=== PATIENT | female | born 1940 | race Caucasian/White ===

== ENCOUNTER → 2016-05-21 | Outpatient (REF) | payer MEDICARE, OTHER | LOC: M LAB REF 16:16 | PROVIDERS: ATTEND Obstetrics & Gynecology | DX: N30.80 Other cystitis without hematuria (principal) ==

== ENCOUNTER → 2016-05-28 | Outpatient (REF) | LOC: M LAB 12:33 | PROVIDERS: ATTEND Nurse Practitioner Adult Health | DX: Z02.1 Encounter for pre-employment examination (principal) ==

== ENCOUNTER → 2016-06-22 | Outpatient (REF) | payer MEDICARE, OTHER | LOC: M SFHCLERA 11:50 | PROVIDERS: ATTEND Physician Assistant | DX: N39.0 Urinary tract infection, site not specified (principal) | CPT/HCPCS: 81002; 87088; 87186; G0463 ==

== ENCOUNTER → 2016-07-12 | Outpatient (REF) | payer MEDICARE, OTHER | LOC: M LAB REF 16:26 | PROVIDERS: ATTEND Obstetrics & Gynecology | DX: N39.41 Urge incontinence (principal) ==

== ENCOUNTER → 2016-08-03 | Outpatient (REF) | payer MEDICARE, OTHER ==
[~2016-08-03] MED LIST: ACET30TAB PO; ADV250INH; ADV250INH INH; ALIG4CAP PO; AMOX500T2 PO; ASPI1TAB PO; AUGM500T34 PO; AUGM875T27 PO; BACT800T5 PO; CALC600T10 PO; CEPH250T PO; CO Q1CAP PO; CRAN425C2 PO; ESTR62CR; ESTR62CR PV; FISH1000 PO; FOLI400T PO; GABA600T; GABA600T PO; HYDR25TA6; HYDR25TAB PO; IBUP60TA PO; ICAPCAP PO; LEVO88TA24 PO; LYSI500C PO; MAGN1TAB25 PO; METO-346; METO-346 PO; OMEP20CA3; OMEP20TA PO; PARO20TA3; PARO20TA3 PO; PROBCAP14 PO; RISATAB3 PO; SIMV20TA2; SIMV20TA2 PO; SYNT88TA2; TURM500C3 PO; TYLETAB14 PO; VITA10006 PO; VITA100066 PO; VITA400C2 PO; VITATAB11 PO; ZINC50TA PO; [UNRECOGNIZED DRUG - CODE] PO
== END ==
LOC: M SFHCLERA 11:24
PROVIDERS: ATTEND Nurse Practitioner Family
DX: N30.01 Acute cystitis with hematuria (principal)
CPT/HCPCS: 81002; 87088; 87186; G0463

== ENCOUNTER → 2016-08-23 | Outpatient (CLI) | payer MEDICARE, OTHER ==
--- NOTE | 2016-08-23 12:32 | REPMRS ---
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 Family history of colorectal cancer in mother at age 50 or over and breast cancer in maternal aunt at age 50 or over. Taking estrogen for 1 month. Digital Woman Screen Mammo: August 23, 2016 - Exam #: [id number] Bilateral CC and MLO view(s) were taken. Technologist: Agnes Kerns, Technologist Prior study comparison: August 14, 2015, digital woman screen mammo performed at [facility]. August 12, 2014, digital woman screen mammo performed at [facility]. FINDINGS: There are scattered fibroglandular densities. There has been no change in the appearance of the mammogram from the prior studies. There is a mild amount of residual fibroglandular tissue which is fairly symmetric. There is no interval development of dominant mass, architectural distortion, or clustered microcalcification suggestive of malignancy. ASSESSMENT: BI-RADS/ACR category 1 mammogram. Negative. Recommendation Routine screening mammogram in 1 year (for women over age 40). This mammogram was interpreted with the aid of an FDA-approved computer-aided dectection system. Electronically Signed By: Juan Luis Lima MD 08/23/16 [id number]
== END ==
LOC: M WHC 11:26
PROVIDERS: ATTEND Family Medicine
DX: Z12.31 Encounter for screening mammogram for malignant neoplasm of breast (principal); Z85.72 Personal history of non-Hodgkin lymphomas; Z80.3 Family history of malignant neoplasm of breast; Z79.899 Other long term (current) drug therapy

== ENCOUNTER 2016-08-27 14:37 | Emergency (ER) | payer MEDICARE, OTHER ==
[~2016-08-27] VITALS: Ht 157.5 cm; Wt 88.8 kg
[2016-08-27] MEDS ORDERED: ADV250INH (14:54)
[2016-08-27] MEDS ORDERED: SIMV20TA2 (14:54)
[2016-08-27] MEDS ORDERED: SYNT88TA2 (14:54)
[2016-08-27] MEDS ORDERED: METO-346 (14:54)
[2016-08-27] MEDS ORDERED: BACT800T5 PO (14:54)
[2016-08-27] MEDS ORDERED: ESTR62CR (14:54)
[2016-08-27] MEDS ORDERED: OMEP20CA3 (14:54)
[2016-08-27] MEDS ORDERED: HYDR25TA6 (14:54)
[2016-08-27] MEDS ORDERED: GABA600T (14:54)
[2016-08-27] MEDS ORDERED: PARO20TA3 (14:54)
[2016-08-27] MEDS ORDERED: PIPERACILLIN/TAZOBACTAM SOD 3.375 GM in D5W MINI-BAG PLUS 50 ML IV ONE (15:00)
[2016-08-27] MEDS ORDERED: ACETAMINOPH W/CODEINE #3 TAB UD PO ONE (15:15)
[2016-08-27 15:35] LABS: BASO % 0.5 % (0.0-1.0); EOS # 0.1 K/mm3 (0.0-0.50); EOS % 1.4 % (0.0-3.0); LARGE UNSTAINED CELL # 0.1 K/mm3 (0.0-0.4); LARGE UNSTAINED CELL % 0.8 % (0.0-4.0); LYMPH # 1.1 K/mm3 (1.5-4.5); LYMPH % 12.3 % (24.0-44.0); MEAN CORPUSCULAR HEMOGLOBIN 30.4 pg (27.0-33.0); MEAN CORPUSCULAR HGB CONC 33.2 g/dl (32.0-36.5); MEAN CORPUSCULAR VOLUME 91.7 fl (80.0-96.0); MONO # 0.5 K/mm3 (0.0-0.8); MONO % 5.9 % (0.0-5.0); NEUTROPHILS # 6.8 K/mm3 (1.8-7.7); PLATELET COUNT, AUTOMATED 208 k/mm3 (150-450); WHITE BLOOD COUNT 8.6 K/mm3 (4.0-10.0)
[2016-08-27 16:02] LABS: ALBUMIN 3.2 GM/DL (3.2-5.2); ALBUMIN/GLOBULIN RATIO 1.1 (1.00-1.93); BILIRUBIN,DIRECT 0.2 MG/DL (0.0-0.2); BILIRUBIN,TOTAL 0.5 MG/DL (0.2-1.0); CALCIUM LEVEL 8.7 MG/DL (8.8-10.2); CREATININE FOR GFR 1.9 MG/DL (0.55-1.02); GLOMERULAR FILTRATION RATE 27.5 (>39); POTASSIUM SERUM 3.8 MEQ/L (3.5-5.1); TOTAL PROTEIN 6.1 GM/DL (6.4-8.2)
[2016-08-27 16:07] LABS: ERYTHROCYTE SEDIMENTATION RATE 54 mm/hr (0-30)
[2016-08-27] MEDS ORDERED: AUGM500T34 PO ×2 (16:40→16:44)
[2016-08-27] MEDS ORDERED: ACET30TAB PO (16:41)
[2016-08-27 16:54] VITALS: BP 144/71
[2016-08-28] MEDS ORDERED: TYLETAB14 PO (13:52)
[2016-08-28] MEDS ORDERED: HYDR25TAB PO (13:52)
[2016-08-28] MEDS ORDERED: PARO20TA3 PO (13:52)
[2016-08-28] MEDS ORDERED: ESTR62CR PV (13:52)
[2016-08-28] MEDS ORDERED: AMOX500T2 PO (13:52)
[2016-08-28] MEDS ORDERED: OMEP20TA PO (13:52)
[2016-08-28] MEDS ORDERED: LEVO88TA24 PO (13:52)
[2016-08-28] MEDS ORDERED: GABA600T PO (13:52)
[2016-08-28] MEDS ORDERED: METO-346 PO (13:52)
[2016-08-28] MEDS ORDERED: VITA10006 PO (14:01)
[2016-08-28] MEDS ORDERED: PROBCAP14 PO (14:01)
[2016-08-28] MEDS ORDERED: [UNRECOGNIZED DRUG - CODE] PO (14:01)
[2016-08-28] MEDS ORDERED: FISH1000 PO (14:01)
[2016-08-28] MEDS ORDERED: ASPI1TAB PO (14:01)
[2016-08-28] MEDS ORDERED: FOLI400T PO (14:01)
[2016-08-28] MEDS ORDERED: LYSI500C PO (14:01)
[2016-08-28] MEDS ORDERED: VITA100066 PO (14:01)
[2016-08-28] MEDS ORDERED: MAGN1TAB25 PO (14:01)
[2016-08-28] MEDS ORDERED: TURM500C3 PO (14:01)
[2016-08-28] MEDS ORDERED: CO Q100C PO (14:01)
[2016-08-28] MEDS ORDERED: CALC600T31 PO (14:01)
[2016-08-28] MEDS ORDERED: ADV250INH INH (14:01)
[2016-08-28] MEDS ORDERED: CEPH250T PO (14:01)
[2016-08-28] MEDS ORDERED: CRAN425C2 PO (14:01)
[2016-08-28] MEDS ORDERED: ICAPCAP PO (14:01)
[2016-08-28] MEDS ORDERED: VITATAB11 PO (14:01)
[2016-08-28] MEDS ORDERED: IBUP1TAB6 PO (14:01)
[2016-08-28] MEDS ORDERED: ZINC50TA PO (14:01)
[2016-08-28] MEDS ORDERED: SIMV20TA2 PO (14:01)
[2016-08-28] MEDS ORDERED: VITA400C7 PO (14:01)
[2016-09-01] MEDS ORDERED: AUGM875T28 PO (13:02)
== END 2016-08-27 16:56 | disposition home or self-care (01) ==
LOC: M ED 15:53
DX: L03.113 Cellulitis of right upper limb (principal); S61.451A Open bite of right hand, initial encounter; W55.01XA Bitten by cat, initial encounter; Y92.89 Other specified places as the place of occurrence of the external cause; Y93.9 Activity, unspecified; Y99.8 Other external cause status; G89.29 Other chronic pain; J44.9 Chronic obstructive pulmonary disease, unspecified; Z90.79 Acquired absence of other genital organ(s); Z91.040 Latex allergy status

== ENCOUNTER 2016-08-28 10:43 | Inpatient (IN) | payer MEDICARE, OTHER ==
[~2016-08-28] VITALS: Ht 157.5 cm; Wt 91.3 kg
[~2016-08-28 10:43] MED LIST changes: -ADV250INH INH; -ALIG4CAP PO; -AMOX500T2 PO; -ASPI1TAB PO; -AUGM875T27 PO; -CALC600T10 PO; -CEPH250T PO; -CO Q1CAP PO; -CRAN425C2 PO; -ESTR62CR PV; -FISH1000 PO; -FOLI400T PO; -GABA600T PO; -HYDR25TAB PO; -IBUP60TA PO; -ICAPCAP PO; -LEVO88TA24 PO; -LYSI500C PO; -MAGN1TAB25 PO; -METO-346 PO; -OMEP20TA PO; -PARO20TA3 PO; -PROBCAP14 PO; -RISATAB3 PO; -SIMV20TA2 PO; -TURM500C3 PO; -TYLETAB14 PO; -VITA10006 PO; -VITA100066 PO; -VITA400C2 PO; -VITATAB11 PO; -ZINC50TA PO; -[UNRECOGNIZED DRUG - CODE] PO
[2016-08-28] MEDS ORDERED: PIPERACILLIN/TAZOBACTAM SOD 3.375 GM in D5W MINI-BAG PLUS 50 ML IV ONE (11:15)
[2016-08-28] MEDS ORDERED: ONDANSETRON 4MG/2ML VIAL (J2405) IV ONE (11:45)
[2016-08-28] MEDS ORDERED: MORPHINE 4 MG/ML 1ML SYRINGE IV ONE (11:45)
[2016-08-28 12:07] LABS: ALBUMIN 3.1 GM/DL (3.2-5.2); ALBUMIN/GLOBULIN RATIO 1.03 (1.00-1.93); BILIRUBIN,TOTAL 0.4 MG/DL (0.2-1.0); CALCIUM LEVEL 8.7 MG/DL (8.8-10.2); CREATININE FOR GFR 2.02 MG/DL (0.55-1.02); GLOMERULAR FILTRATION RATE 25.6 (>39); POTASSIUM SERUM 3.6 MEQ/L (3.5-5.1); TOTAL PROTEIN 6.1 GM/DL (6.4-8.2)
[2016-08-28 12:34] LABS: MEAN CORPUSCULAR HEMOGLOBIN 29.9 pg (27.0-33.0); MEAN CORPUSCULAR HGB CONC 32.5 g/dl (32.0-36.5); MEAN CORPUSCULAR VOLUME 91.9 fl (80.0-96.0); NEUTROPHILS % 76.7 % (36.0-66.0); PLATELET COUNT, AUTOMATED 208 k/mm3 (150-450); WHITE BLOOD COUNT 8.2 K/mm3 (4.0-10.0)
[2016-08-28 12:35] LABS: BASO # 0.1 K/mm3 (0.0-0.2); BASO % 0.7 % (0.0-1.0); DIFF SLIDE NUMBER 123; EOS # 0.1 K/mm3 (0.0-0.50); EOS % 1.8 % (0.0-3.0); LARGE UNSTAINED CELL # 0.1 K/mm3 (0.0-0.4); LARGE UNSTAINED CELL % 1.3 % (0.0-4.0); LYMPH # 1.1 K/mm3 (1.5-4.5); LYMPH % 13.9 % (24.0-44.0); MONO # 0.5 K/mm3 (0.0-0.8); MONO % 5.7 % (0.0-5.0); NEUTROPHILS # 6.3 K/mm3 (1.8-7.7)
[2016-08-28 13:03] LABS: ERYTHROCYTE SEDIMENTATION RATE 58 mm/hr (0-30)
[2016-08-28] MEDS ORDERED: HYDR25TAB PO (13:52)
[2016-08-28] MEDS ORDERED: OMEP20TA PO (13:52)
[2016-08-28] MEDS ORDERED: METO-346 PO (13:52)
[2016-08-28] MEDS ORDERED: LEVO88TA24 PO (13:52)
[2016-08-28] MEDS ORDERED: PARO20TA3 PO (13:52)
[2016-08-28] MEDS ORDERED: AMOX500T2 PO (13:52)
[2016-08-28] MEDS ORDERED: ESTR62CR PV (13:52)
[2016-08-28] MEDS ORDERED: TYLETAB14 PO (13:52)
[2016-08-28] MEDS ORDERED: GABA600T PO (13:52)
[2016-08-28] MEDS ORDERED: VITA100066 PO (14:01)
[2016-08-28] MEDS ORDERED: PROBCAP14 PO (14:01)
[2016-08-28] MEDS ORDERED: CO Q1CAP PO (14:01)
[2016-08-28] MEDS ORDERED: VITA10006 PO (14:01)
[2016-08-28] MEDS ORDERED: ZINC50TA PO (14:01)
[2016-08-28] MEDS ORDERED: TURM500C3 PO (14:01)
[2016-08-28] MEDS ORDERED: SIMV20TA2 PO (14:01)
[2016-08-28] MEDS ORDERED: CEPH250T PO (14:01)
[2016-08-28] MEDS ORDERED: CRAN425C2 PO (14:01)
[2016-08-28] MEDS ORDERED: CALC600T10 PO (14:01)
[2016-08-28] MEDS ORDERED: LYSI500C PO (14:01)
[2016-08-28] MEDS ORDERED: FOLI400T PO (14:01)
[2016-08-28] MEDS ORDERED: ICAPCAP PO (14:01)
[2016-08-28] MEDS ORDERED: ADV250INH INH (14:01)
[2016-08-28] MEDS ORDERED: MAGN1TAB25 PO (14:01)
[2016-08-28] MEDS ORDERED: FISH1000 PO (14:01)
[2016-08-28] MEDS ORDERED: [UNRECOGNIZED DRUG - CODE] PO (14:01)
[2016-08-28] MEDS ORDERED: VITA400C2 PO (14:01)
[2016-08-28] MEDS ORDERED: ASPI1TAB PO (14:01)
[2016-08-28] MEDS ORDERED: IBUP60TA PO (14:01)
[2016-08-28] MEDS ORDERED: VITATAB11 PO (14:01)
[2016-08-28] MEDS ORDERED: ACETAMINOPHEN TAB 650MG DOSE (2X325MG) PO PRN (15:00)
[2016-08-28] MEDS ORDERED: ONDANSETRON 4 MG TAB (S0181) PO PRN (15:00)
--- NOTE | 2016-08-28 15:25 | REP ---
SOFT-TISSUE ULTRASOUND RIGHT UPPER EXTREMITY: 08/28/2016 CLINICAL HISTORY: Right hand and wrist were scanned. Swelling, erythema with previous cat bite. Possible abscess. FINDINGS: There is diffuse soft-tissue swelling and edema of the subcutaneous tissues seen in the fat layer of the subcutaneous tissues. There is an area of 7 x 6 x 5 mm diameter which appears to be coalescing fluid in the soft tissues and a tract pointing toward the skin. There is color flow in the tissues but not in this area. IMPRESSION: 1. Small developing subcutaneous abscess which is triangular-shaped pointing toward the skin with a sinus tract to the skin surface suggested on this study in the area of swelling. Signed by True Reddy MD 08/28/2016 08:11 P
[2016-08-28] MEDS ORDERED: LR 1,000 ML IV SCH (16:00)
--- NOTE | 2016-08-28 16:47 | HPEPDOC ---
General Date of Admission Aug 28, 2016 at 15:24 Primary Care Physician: MARQUISE SNELL M.D. Other Providers Karen Lynn [facility] Attending Physician: KAN ADAN MD Chief Complaint The patient is a 76-year-old female admitted with a reason for visit of Cellulitis Of Right Forearm. Source: Patient Exam Limitations: Other (difficulty with extending or flexing her wrist due to pain and edema) History of Present Illness PRIMARY CARE PROVIDER: Dr. Marquise Snell CHIEF COMPLAINT: cat bite HISTORY OF PRESENT ILLNESS: This is a 76-year-old female with past medical history of hypertension, hyperlipidemia, hypothyroidism, GERD, depression, anxiety, neuralgia of the feet , ankle edema, questionable non-Hodgkin lymphoma with enlarged lymph nodes in the abdomen, recurrent UTIs, osteoarthritis of the R knee, osteoporosis with compression fracture at L5 with occasional sciatica, urinary sepsis that caused a coma for 12 days and a hospitalization for 5 weeks, osteopenia, COPD per patient, and Grade I diastolic heart failure, lumbar degenerative disc disease, who presented to the ED today to receive scheduled IV antibiotics for a RUE cellulitis that began 2 days ago after a cat bite on the dorsum of her R hand on Tuesday. Patient just recently got the cat around 1-2 weeks ago. The cat was immunized ~1 month ago. The cat bit the patient's right hand on Tuesday. On , patient began to have swelling, redness, and pain near the area of her cat bite. She decided to go to [facility] and was seen by Lauren Lynn MACHINE ZIPPER TRIMMER who prescribed her Bactrim for the cellulitis. However, the patient states that after 2 doses of Bactrim, her right hand and right wrist were getting worse and infection was spreading instead of getting better. She then decided to come to the [facility] ER to be checked again. In the ER, they had treated her with Augmentin, and told her to come back the next day for IV antibiotics. Patient was complaining of 7 out of 10 pain in her right hand and wrist today. It was determined here in the ER today that the cellulitis was worsening and it warranted her to be admitted to the inpatient service. In the ER, the patient received 1 dose of IV Zosyn, morphine for pain , and Zofran for nausea from the morphine. Patient's pain level decreased to 4- 5 out of 10 in intensity post morphine. Patient had a right upper extremity ultrasound in the ED that showed small developing subcutaneous abscess with a sinus tract to the skin surface in the area of swelling. X-rays of the wrist, hand, and right forearm are pending. Review of systems was negative for fever, chills, dizziness, chest pain, shortness of breath, dysuria, hematuria, sore throat, runny nose, cough, or rash anywhere else. Admits to a slight headache but nothing serious. Admits to 4 -5 out of 10 pain in her right wrist and hand. Denies weakness in any of her extremities or muscle pain other than in her area of her cellulitis. Of note, the patient had a tetanus shot in July 2016 after a L hand cat bite. This cat bite, however, did not result in a cellulitis per patient. PAST MEDICAL HISTORY: Hypertension Hyperlipidemia Hypothyroidism GERD COPD per patient Depression Anxiety Neuralgia of the feet Ankle edema Questionable Non-Hodgkin lymphoma with enlarged lymph nodes in the abdomen-- followed by Dr. Velazquez with CT scans 1-2 x yearly Recurrent UTIs Osteoarthritis of the R knee Osteoporosis with compression fracture at L5 with occasional sciatica Urinary sepsis that caused a coma for 12 days and a hospitalization for 5 weeks requiring ICU admission with sepsis in 01/07 Osteopenia Grade I Diastolic Dysfunction Heart Failure Lumbar degenerative disc disease PAST SURGICAL HISTORY/PROCEDURES: Partial hysterectomy Right knee replacement Cervical disc surgery D&C De Quervain's Left Wrist Surgery Anterior discectomy at C4-5, 4, 5, 6 Last colonoscopy in 2016 per patient MEDICATIONS: Please see list below for full home meds. ALLERGIES: Latex exam gloves: severe rash NKDA SOCIAL HISTORY: Quit smoking 25 years ago. Smoked for around 30 years: 1 to 1-1/2 packs per day. Denies EtOH use. Used to be a social drinker with parties on weekends. Never a heavy drinker. Heavy denies illicit drug use. No recent travel. No recent sick contacts. She Pets: 5 cats which are immunized. Just received a new cat 2 weeks ago. 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 Worked for the [employer] for around 40 years. Has traveled to [place], [place], [place]. Has not traveled outside of the [place]. Admits to exposure to asbestos in 1940s buildings. FAMILY HISTORY: Father: Type 1 diabetes, lung cancer, at age 79 years. Mother: Vani body dementia, colon cancer diagnosed in her early 80s, at 89 years. Sister: Morbid obesity and uterine cancer. Brother: Diabetes, back pain of unknown etiology per patient. Has 1 son and 1 daughter. Daughter: Pseudotumor cerebri, obesity. Assessment: Anxiety. Positive family history of breast cancer (and ovarian cancer from [employer]clinical works clinic visit documentation, and diabetes. 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 PHYSICAL EXAMINATION: Vitals: T: 98.5 BP: 105/56 RR: 18 P: 73 O2 Saturation: 92% room air General: Pleasant and cooperative elderly female sitting up comfortably in gurney. In no apparent distress. HEENT: Head: normocephalic, atraumatic. Eyes: sclera are nonicteric. Nose: No external lesions Neck: Supple. No thyromegaly. No cervical lymphadenopathy bilaterally. Respiratory: clear to auscultation bilaterally with no wheezes, rales, or rhonchi. Chest: Symmetric chest rise bilaterally. Cardiovascular: regular rate and rhythm, with no murmurs, rubs or gallops. Abdomen: soft, nontender, nondistended, no hepatosplenomegaly appreciated. Bowel sounds present. MSK: Right hand and wrist swelling extending up to the forearm. Patient unable to fully extend or flex her wrist or make a fist with her hand due to pain and swelling. Neurological: No focal neurologic deficits appreciated bilaterally. Lymphatics: No significant palpable axillary lymph nodes of the right axilla. Integumentary: Positive erythema, warmth, and edema of right hand and wrist extending up the forearm midway. +Moderate tenderness to palpation of dorsum and wrist of R hand. Vascular: +2 radial pulses bilaterally. LABORATORY DATA: Please see below. CBC remarkable for hemoglobin 11.9, red blood cell count 3.99, neutrophil percent count of 76.7, lymphocyte percentage of 13.9, mono % count 5.7, an ESR of 58. CMP remarkable for BUN of 32, creatinine of 2.02, GFR of 25.6, fasting glucose of 134, calcium 8.7, C-reactive protein of 11.4, total protein of 6.1, albumin of 2.1. MICROBIOLOGY: Blood cultures 2 pending. UA pending. RADIOLOGY: RUE U/S: FINDINGS: There is diffuse soft-tissue swelling and edema of the subcutaneous tissues seen in the fat layer of the subcutaneous tissues. There is an area of 7 x 6 x 5 mm diameter which appears to be coalescing fluid in the soft tissues and a tract pointing toward the skin. There is color flow in the tissues but not in this area. IMPRESSION: Small developing subcutaneous abscess which is triangular-shaped pointing toward the skin with a sinus tract to the skin surface suggested on this study in the area of swelling. ASSESSMENT: 76-year-old female with past medical history of hypertension, hyperlipidemia, hypothyroidism, GERD, depression, anxiety neuralgia of the feet, anxiety, ankle edema, questionable non-Hodgkin lymphoma with enlarged lymph nodes in the abdomen, recurrent UTIs, osteoarthritis of the R knee, osteoporosis with compression fracture at L5 with occasional sciatica, urinary sepsis that caused a coma for 12 days and a hospitalization for 5 weeks, osteopenia, COPD per patient, and Grade I diastolic heart failure, lumbar degenerative disc disease, who presented to the ED today to receive scheduled IV antibiotics for a RUE cellulitis that began 2 days ago after a cat bite on the dorsum of her R hand on Tuesday. Impression: Patient presenting for R hand and wrist cellulitis extending up to the mid-R forearm, a small 4-5 mm subcutaneous abscess/fluid collection on the dorsum of the right hand, and acute kidney injury (no previously documented or patient reported hx of kidney failure/disease). PLAN: RUE Cellulitis of R wrist and R hand, and small subcutaneous abscess of dorsum of R hand: Admit to Med/Surg floor for IV antibiotics. Will administer IV zosyn for now as patient failed both augmentin and bactrim most likely due to antibiotic resistance. Will give IVF LR's @ 75 mLs/hr. Will obtain CRPs. Blood cx x 2 pending. Orthopedic Surgery consulted: Dr. Kenneth Torres for further evaluation due to patient unable to make full fist with R hand or bend R wrist, for edema, and possibly rule out compartment syndrome, as well as for the necessity for I&D. Will obtain x-rays of R hand, wrist, and forearm. Will obtain MRSA screen and add antibiotic for coverage if positive. Will give probiotic bacid for prophylaxis of C. diff and GI upset. Will continue acetaminophen/codeine phosphate home med q6h PRN pain and acetaminophen 650 MG Q4h PRN pain. Will give zofran PRN nausea/vomiting. Will monitor daily CBCs, BMPs, and CRPs. Acute Kidney Injury: BUN 32, Cr 2.02, and GFR 25.6. No found documented hx or pt reported hx of kidney disease or kidney failure. Will obtain UA, U/S of kidney to rule out medical renal disease. Of note, to keep in mind, patient received bactrim this week for cellulitis which can cause worsened kidney function. Hypertension: will hold HCTZ for now due to RANDY. Will continue metoprolol. Hyperlipidemia: continue simvastatin. Hypothyroidism: continue levothyroxine. GERD: omeprazole. COPD per patient: continue home medication advair diskus BID. Monitor clinically. Depression: paroxetine Anxiety: paroxetine Neuralgia of the feet: gabapentin Ankle edema: monitor clinically and use TEDs. Questionable Non-Hodgkin lymphoma with enlarged lymph nodes in the abdomen-- followed by Dr. Velazquez with CT scans 1-2 x yearly: chronic. Follow up as outpatient with Dr. Velazquez. Recurrent UTIs: UA pending. Will monitor clinically for any symptoms. Osteoarthritis of the R knee: acetaminophen/codeine and acetaminophen PRN pain. Osteoporosis with compression fracture at L5 with occasional sciatica: chronic. Vitamin D 1000 units QHS. Osteopenia: vitamin D Grade I Diastolic Dysfunction Heart Failure: Echocardiogram done in 08/24/10 showed LVEF of 60-65%, normal LV size and systolic fx, grade I diastolic dysfunction, no hemodynamically significant valvular disease, mild Pulmonary HTN , and normal central venous pressure. Lumbar degenerative disc disease: continue PRN pain medication. Diet: regular DVT ppx: heparin 5000 SC qdaily FULL CODE STATUS Immunizations as per protocol My preceptor for this patient encounter was Dr. Kan Adan, and was physically present in the building during the encounter and was fully available. As needed , all aspects of the patient interview, examination, medical decision making process, and medical care plan development were reviewed and approved by the preceptor. Preceptor is aware and concurs with the plan as stated in the body of this note and will attest to such by his/her cosignature. Home Medications Scheduled (Red Wine Extract) 1 Cap Cap, 1 CAP PO QHS, (Reported) (Cranberry) 425 Mg Cap, 1,700 MG PO QHS, (Reported) (Co Q-10) 100 Mg Cap, 100 MG PO QHS, (Reported) (Probiotic) 1 Cap Cap, 1 CAP PO QHS, (Reported) (Icaps) 1 Cap Cap, 1 CAP PO QHS, (Reported) Amoxicillin/Clavulanate Potas (Amoxicillin/Clavulanate P 500-125 mg) 1 Tab Tab, 500 MG PO BID, (Reported) FILLED 08/27/16 FOR 10 DAYS Ascorbic Acid (Vitamin C) 1,000 Mg Tab, 2,000 MG PO QHS, (Reported) Aspirin (Aspirin 81) 81 Mg Tab, 81 MG PO QHS, (Reported) B1/B2/B3/B5/B6 (Vitamin B Complex) 1 Tab Tab, 1 TAB PO QHS, (Reported) Calcium (Calcium) 600 Mg Tab, 600 MG PO QHS, (Reported) Cephalexin Monohydrate (Cephalexin) 250 Mg Tab, 250 MG PO DAILY, (Reported) Cholecalciferol (Vitamin D) 1,000 Unit Tab, 1,000 UNIT PO QHS, (Reported) Conjugated Estrogens (Premarin) 1 Dose/30 Gm Cr, 1 DOSE PV QHS, (Reported) Curcuma Longa (Turmeric) Extra (Turmeric) 500 Mg Cap, 1,000 MG PO QHS, (Reported ) Fish Oil (Fish Oil) 1,000 Mg Cap, 1,000 MG PO QHS, (Reported) Folic Acid (Folic Acid) 400 Mcg Tab, 400 MCG PO QHS, (Reported) Gabapentin (Gabapentin) 600 Mg Tab, 600 MG PO BID, (Reported) Hydrochlorothiazide (Hydrochlorothiazide) 25 Mg Tab, 25 MG PO DAILY, (Reported) Levothyroxine Sodium (Levoxyl) 88 Mcg Tab, 88 MCG PO DAILY, (Reported) Lysine (Lysine) 500 Mg Cap, 500 MG PO QHS, (Reported) Magnesium Oxide (Magnesium) 400 Mg Tab, 400 MG PO QHS, (Reported) Metoprolol Tartrate (Metoprolol Tartrate) 12.5 Mg Halftab, 12.5 MG PO QHS, ( Reported) Omeprazole (Omeprazole) 20 Mg Tab, 20 MG PO QHS, (Reported) Paroxetine (Paroxetine HCl) 20 Mg Tab, 20 MG PO DAILY, (Reported) Salmeterol/Fluticasone (Advair Diskus 250-50 Mcg/Dose) 14 Puff/Inhaler Aerp, 1 PUFF INH BID, (Reported) Simvastatin (Simvastatin) 20 Mg Tab, 20 MG PO QHS, (Reported) Vitamin E (Vitamin E) 400 Unit Cap, 400 UNIT PO QHS, (Reported) Zinc (Zinc) 50 Mg Tab, 50 MG PO QHS, (Reported) Scheduled PRN Acetaminophen/Codeine (Tylenol/Codeine #3 300-30 mg) 1 Tab Tab, 1 TAB PO Q6H PRN for PAIN, (Reported) Ibuprofen (Ibuprofen) 600 Mg Tab, 600 MG PO TID PRN for PAIN, (Reported) Allergies Coded Allergies: Latex (Verified Allergy, Unknown, 08/27/16) rash Vital Signs Vital Signs Date Time Temp Pulse Resp B/P (MAP) Pulse Ox O2 Delivery O2 Flow Rate FiO2 08/28/16 12:00 18 08/28/16 11:31 08/28/16 10:43 98.5 73 93 Room Air Laboratory Data Labs 24H Laboratory Tests 2 08/28/16 11:30: White Blood Count 8.2, Red Blood Count 3.99L, Hemoglobin 11.9L, Hematocrit 36.6 , Mean Corpuscular Volume 91.9, Mean Corpuscular Hemoglobin 29.9, Mean Corpuscular Hemoglobin Concent 32.5, Red Cell Distribution Width 13.0, Platelet Count 208, Neutrophils (%) (Auto) 76.7H, Lymphocytes (%) (Auto) 13.9L, Monocytes (%) (Auto) 5.7H, Eosinophils (%) (Auto) 1.8, Basophils (%) (Auto) 0.7 , Neutrophils # (Auto) 6.3, Lymphocytes # (Auto) 1.1L, Monocytes # (Auto) 0.5, Eosinophils # (Auto) 0.1, Basophils # (Auto) 0.1, Large Unclassified Cells % 1.3 , Large Unclassified Cells # 0.1, Erythrocyte Sedimentation Rate 58H, Anion Gap 10, Glomerular Filtration Rate 25.6L, Blood Urea Nitrogen 32H, Creatinine 2.02H , Sodium Level 141, Potassium Level 3.6, Chloride Level 107, Carbon Dioxide Level 24, Calcium Level 8.7L, Aspartate Amino Transf (AST/SGOT) 18, Alanine Aminotransferase (ALT/SGPT) 17, Alkaline Phosphatase 69, Total Bilirubin 0.4, Total Protein 6.1L, Albumin 3.1L, C-Reactive Protein, Quantitative 11.40H, Albumin/Globulin Ratio 1.03 08/28/16 13:56: Lactic Acid Level 1.5 CBC/BMP Laboratory Tests 08/28/16 11:30 Red Blood Count 3.99 L, Mean Corpuscular Volume 91.9, Mean Corpuscular Hemoglobin 29.9, Mean Corpuscular Hemoglobin Concent 32.5, Red Cell Distribution Width 13.0, Neutrophils (%) (Auto) 76.7 H, Lymphocytes (%) (Auto) 13.9 L, Monocytes (%) (Auto) 5.7 H, Eosinophils (%) (Auto) 1.8, Basophils (%) ( Auto) 0.7, Neutrophils # (Auto) 6.3, Lymphocytes # (Auto) 1.1 L, Monocytes # ( Auto) 0.5, Eosinophils # (Auto) 0.1, Basophils # (Auto) 0.1, Calcium Level 8.7 L , Aspartate Amino Transf (AST/SGOT) 18, Alanine Aminotransferase (ALT/SGPT) 17, Alkaline Phosphatase 69, Total Bilirubin 0.4, Total Protein 6.1 L, Albumin 3.1 L Microbiology Microbiology 08/28/16 Blood Culture, Received Pending 08/28/16 Blood Culture, Received Pending Plan / VTE VTE Prophylaxis Ordered?: Yes (heparin SC) GME ATTESTATION GME ATTESTATION My preceptor for this patient encounter was physically present in the building during the encounter and was fully available. As needed, all aspects of the patient interview, examination, medical decision making process, and medical care plan development were reviewed and approved by the preceptor. Preceptor is aware and concurs with the plan as stated in the body of this note and will attest to such by his/her cosignature. ATTENDING NOTE I have both independently examined this patient as well as reviewed the note. I have discussed in detail with the resident the findings and plan of treatment as documented in the residents note. I will continue to follow the patient and offer further guidance to the patients care as necessary during this hospital stay. Kan RAZO,SARAI OGME-1 Aug 28, 2016 16:47 KAN ADAN MD Aug 29, 2016 06:46
[2016-08-28 17:15] VITALS: BP 133/68
[2016-08-28] MEDS ORDERED: FOLIC ACID 1 MG in NS 50 ML IV SCH (18:00)
--- NOTE | 2016-08-28 18:20 | CR.PDOC ---
[facility] Consultation Consultation DATE OF CONSULTATION: Aug 28, 2016 at 11:33 PRIMARY CARE PHYSICIAN: Dr. Marquise Vivas REFERRING PROVIDER: Dr. Ovi Izquierdo ATTENDING PHYSICIAN: Dr. Kam Stroud REASON FOR CONSULTATION/CHIEF COMPLAINT: RUE cellulitis from cat bite. HISTORY OF PRESENT ILLNESS: Pt is a 76 y/o RHD female who sustained a cat bite to the dorsum of the hand 3 days ago. The cat had only been in her possession for one week prior to the bite. She was seen at an urgent care center and placed on PO abx and failed to respond. She presented to the [facility] ER for further evaluation and was admitted to the hospitalist service for cellulitis. Orthopedics was consulted to evaluate for necessity for I&D. Patient states she has significant pain to the RUE but denies any recent fevers , chills, or other constitutional symptoms. ALLERGIES: Please see below. MEDICATIONS: Please see list below. PAST MEDICAL HISTORY: Hypertension Hyperlipidemia Hypothyroidism GERD COPD per patient Depression Anxiety Neuralgia of the feet Anxiety Ankle edema Questionable Non-Hodgkin lymphoma with enlarged lymph nodes in the abdomen-- followed by Dr. Velazquez with CT scans 1-2 x yearly Recurrent UTIs Osteoarthritis of the R knee Osteoporosis with compression fracture at L5 with occasional sciatica Urinary sepsis that caused a coma for 12 days and a hospitalization for 5 weeks requiring ICU admission with sepsis in 01/07 Osteopenia Grade I Diastolic Dysfunction Heart Failure Lumbar degenerative disc disease PAST SURGICAL HISTORY: Partial hysterectomy Right knee replacement D&C 1st dorsal comp release L wrist ACDF FAMILY HISTORY: Father: Type 1 diabetes, lung cancer, at age 79 years. Mother: Ludwig body dementia, colon cancer diagnosed in her early 80s, at 89 years. Brother: Diabetes, back pain of unknown etiology per patient. Has 1 son and 1 daughter. Daughter: Pseudotumor cerebri, obesity. Son: Anxiety. SOCIAL HISTORY: Quit smoking 25 years ago. Smoked for around 30 years: 1 to 1-1/2 packs per day. Denies EtOH use. No recent sick contacts. Pets: 5 cats which are immunized. Just received a new cat 2 weeks ago. 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 GENERAL APPEARANCE: Well nourished female in no acute distress. HEENT: normocephalic, atraumatic. RESPIRATORY: non labored breathing. CARDIOVASCULAR: 2+ radial pulse, BCR all digits RUE.. EXTREMITIES: Focused exam of the RUE demonstrates a small scab over the dorsum of the right hand with surrounding erythema. The hand is moderately tender on the dorsal aspect. There is no tenderness on the volar aspect of the hand or fingers. No palmar erythema. No pain with passive stretch of the fingers or wrist. No expressible drainage from healed wound. No palpable fluctuance. LABORATORY DATA: Please see below. Radiographs: Plain radiographs of the right wrist and hand demonstrate no evidence of fracture or foreign body Ultrasound of the right upper extremity demonstrates a small 4x5mm fluid collection on the dorsum of the right hand ASSESSMENT: 76 y/o female with right hand cellulitis after a cat bite with a small superficial fluid collection on ultrasound. No palpable fluctuance. May represent small abscess PLAN: 1. Given the extremely small fluid collection, I will treat with splinting and elevation in a hanging arm splint with antibiotics treatment per primary team. 2. Will reevaluate patient in am. 3. If no significant improvement, will consider bedside I&D of amll superficial abscess 4. WBAT RUE with splinting and elevating for soft tissue rest/pain control only Thank you for the consult Vital Signs/I&O Vital Signs Date Time Temp Pulse Resp B/P (MAP) Pulse Ox O2 Delivery O2 Flow Rate FiO2 08/28/16 16:47 98.4 57 18 135/66 (89) 94 08/28/16 10:43 Room Air Laboratory Data Labs 24H Laboratory Tests 2 08/28/16 11:30: White Blood Count 8.2, Red Blood Count 3.99L, Hemoglobin 11.9L, Hematocrit 36.6 , Mean Corpuscular Volume 91.9, Mean Corpuscular Hemoglobin 29.9, Mean Corpuscular Hemoglobin Concent 32.5, Red Cell Distribution Width 13.0, Platelet Count 208, Neutrophils (%) (Auto) 76.7H, Lymphocytes (%) (Auto) 13.9L, Monocytes (%) (Auto) 5.7H, Eosinophils (%) (Auto) 1.8, Basophils (%) (Auto) 0.7 , Neutrophils # (Auto) 6.3, Lymphocytes # (Auto) 1.1L, Monocytes # (Auto) 0.5, Eosinophils # (Auto) 0.1, Basophils # (Auto) 0.1, Large Unclassified Cells % 1.3 , Large Unclassified Cells # 0.1, Erythrocyte Sedimentation Rate 58H, Anion Gap 10, Glomerular Filtration Rate 25.6L, Blood Urea Nitrogen 32H, Creatinine 2.02H , Sodium Level 141, Potassium Level 3.6, Chloride Level 107, Carbon Dioxide Level 24, Calcium Level 8.7L, Aspartate Amino Transf (AST/SGOT) 18, Alanine Aminotransferase (ALT/SGPT) 17, Alkaline Phosphatase 69, Total Bilirubin 0.4, Total Protein 6.1L, Albumin 3.1L, C-Reactive Protein, Quantitative 11.40H, Albumin/Globulin Ratio 1.03 08/28/16 13:56: Lactic Acid Level 1.5 CBC/BMP Laboratory Tests 08/28/16 11:30 Red Blood Count 3.99 L, Mean Corpuscular Volume 91.9, Mean Corpuscular Hemoglobin 29.9, Mean Corpuscular Hemoglobin Concent 32.5, Red Cell Distribution Width 13.0, Neutrophils (%) (Auto) 76.7 H, Lymphocytes (%) (Auto) 13.9 L, Monocytes (%) (Auto) 5.7 H, Eosinophils (%) (Auto) 1.8, Basophils (%) ( Auto) 0.7, Neutrophils # (Auto) 6.3, Lymphocytes # (Auto) 1.1 L, Monocytes # ( Auto) 0.5, Eosinophils # (Auto) 0.1, Basophils # (Auto) 0.1, Calcium Level 8.7 L , Aspartate Amino Transf (AST/SGOT) 18, Alanine Aminotransferase (ALT/SGPT) 17, Alkaline Phosphatase 69, Total Bilirubin 0.4, Total Protein 6.1 L, Albumin 3.1 L Microbiology Microbiology 08/28/16 Blood Culture, Received Pending 08/28/16 Blood Culture, Received Pending Allergies Coded Allergies: Latex (Verified Allergy, Unknown, 08/27/16) rash Home Medications Scheduled (Red Wine Extract) 1 Cap Cap, 1 CAP PO QHS, (Reported) (Cranberry) 425 Mg Cap, 1,700 MG PO QHS, (Reported) (Co Q-10) 100 Mg Cap, 100 MG PO QHS, (Reported) (Probiotic) 1 Cap Cap, 1 CAP PO QHS, (Reported) (Icaps) 1 Cap Cap, 1 CAP PO QHS, (Reported) Amoxicillin/Clavulanate Potas (Amoxicillin/Clavulanate P 500-125 mg) 1 Tab Tab, 500 MG PO BID, (Reported) FILLED 08/27/16 FOR 10 DAYS Ascorbic Acid (Vitamin C) 1,000 Mg Tab, 2,000 MG PO QHS, (Reported) Aspirin (Aspirin 81) 81 Mg Tab, 81 MG PO QHS, #30 (Reported) B1/B2/B3/B5/B6 (Vitamin B Complex) 1 Tab Tab, 1 TAB PO QHS, (Reported) Calcium (Calcium) 600 Mg Tab, 600 MG PO QHS, (Reported) Cephalexin Monohydrate (Cephalexin) 250 Mg Tab, 250 MG PO DAILY, (Reported) Cholecalciferol (Vitamin D) 1,000 Unit Tab, 1,000 UNIT PO QHS, (Reported) Conjugated Estrogens (Premarin) 1 Dose/30 Gm Cr, 1 DOSE PV QHS, (Reported) Curcuma Longa (Turmeric) Extra (Turmeric) 500 Mg Cap, 1,000 MG PO QHS, (Reported ) Fish Oil (Fish Oil) 1,000 Mg Cap, 1,000 MG PO QHS, (Reported) Folic Acid (Folic Acid) 400 Mcg Tab, 400 MCG PO QHS, (Reported) Gabapentin (Gabapentin) 600 Mg Tab, 600 MG PO BID, (Reported) Hydrochlorothiazide (Hydrochlorothiazide) 25 Mg Tab, 25 MG PO DAILY, (Reported) Levothyroxine Sodium (Levoxyl) 88 Mcg Tab, 88 MCG PO DAILY, (Reported) Lysine (Lysine) 500 Mg Cap, 500 MG PO QHS, (Reported) Magnesium Oxide (Magnesium) 400 Mg Tab, 400 MG PO QHS, (Reported) Metoprolol Tartrate (Metoprolol Tartrate) 12.5 Mg Halftab, 12.5 MG PO QHS, ( Reported) Omeprazole (Omeprazole) 20 Mg Tab, 20 MG PO QHS, (Reported) Paroxetine (Paroxetine HCl) 20 Mg Tab, 20 MG PO DAILY, (Reported) Salmeterol/Fluticasone (Advair Diskus 250-50 Mcg/Dose) 14 Puff/Inhaler Aerp, 1 PUFF INH BID, (Reported) Simvastatin (Simvastatin) 20 Mg Tab, 20 MG PO QHS, (Reported) Vitamin E (Vitamin E) 400 Unit Cap, 400 UNIT PO QHS, (Reported) Zinc (Zinc) 50 Mg Tab, 50 MG PO QHS, (Reported) Scheduled PRN Acetaminophen/Codeine (Tylenol/Codeine #3 300-30 mg) 1 Tab Tab, 1 TAB PO Q6H PRN for PAIN, (Reported) Ibuprofen (Ibuprofen) 600 Mg Tab, 600 MG PO TID PRN for PAIN, (Reported) LAURA STROUD MD Aug 28, 2016 18:20
--- NOTE | 2016-08-28 18:22 | PHACANCOPD ---
PHARMACY VANCOMYCIN DOSING Pt Demographics Demographics Patient Age:76 , Weight:88.500 , Gender: female Adjusted Body Weight Date: 08/28/16, Adjusted Body Weight: [65] Kg Events Past 24 Hours Events Past 24 Hours: NO: Dialysis, Diuretic Therapy, Change in CrCl, Fever, Elevation in WBC, Pending Diagnostics, Pending Procedures, Other Vancomycin Vancomycin indication: cellulitis Vancomycin Target Ranges: 15-20 mcg/ml Vancomycin Load Y/N: No Load Dose Date Time Vancomycin Load Dose: Date: Time: Vancomycin Dose Date: 08/28/16. Current Vancomycin Dose: [750mg IV q12h @18] Intermittent Dosing?: No Labs Labs Item Value Date Time Creatinine 1.90 MG/DL H 08/27/16 1516 Creatinine 2.02 MG/DL H 08/28/16 1130 White Blood Count 8.2 K/mm3 08/28/16 1130 Micro Microbiology 08/28/16 Blood Culture, Received Pending 08/28/16 Blood Culture, Received Pending Creatinine Clearance Date:08/28/16. Creatinine Clearance: [25 ml/min using adjusted BW]. Pending Labs Vanco trough scheduled 08/30 @05:00 Assessment and Plan Maintaining Current Dose?: Yes Reason for dose change: No Dose Change Pharmacist Note Pharmacist Note Date: 08/28/16. Pharmacist note: pt has been admitted for a cat bite/arm cellulitis (occurred Tuesday), she failed outpt bactrim x2 days, received augmentin in the ER recently and was started on Zosyn upon admission for IV abx. She now has also been started on Vancomycin (Hx of MRSA UTI - TAL = 1). SCr is elevated, unknown what her baseline is at this point. She has not been on vancomycin at our facility in the past. I have continued her vancomycin 750mg IV q12h dosing, I have a trough scheduled before the 4th dose. We will continue to monitor and follow up with the trough. Main Benavides Pharm.D. Aug 28, 2016 18:22
[2016-08-28] MEDS: ADVAIR DISKUS 250/50 INH PWD INH SCH (19:30)
[2016-08-28] MEDS: VANCOMYCIN HCL 750 MG, VIAL MATE ADAPTER 1 EACH in D5W 250 ML IV SCH (19:53)
[2016-08-28] MEDS: PIPERACILLIN/TAZOBACTAM SOD 2.25 GM in D5W MINI-BAG PLUS 50 ML IV SCH (21:03)
[2016-08-28] MEDS: VITAMIN D 1,000 INTERNATIONAL UNITS TABLET PO SCH (21:04)
[2016-08-28] MEDS: LACTOBACILLUS ACIDOPHILUS CAP (BACID) PO SCH (21:04)
[2016-08-28] MEDS: ESTROGENS VAGINAL CREAM 30GM PV SCH (21:04)
[2016-08-28] MEDS: VITAMIN B COMPLEX/VIT C CAP PO SCH (21:04)
[2016-08-28] MEDS: VITAMIN E 400 INTERNATIONAL UNITS CAP PO SCH (21:05)
[2016-08-28] MEDS: ASCORBIC ACID 500 MG TAB PO SCH (21:05)
[2016-08-28] MEDS: ASPIRIN 81 MG ENTERIC TAB PO SCH (21:05)
[2016-08-28] MEDS: ACETAMINOPH W/CODEINE #3 TAB UD PO PRN (21:06)
[2016-08-28] MEDS: METOPROLOL TART 12.5 MG PER 1/2 TAB PO SCH (21:06)
[2016-08-28] MEDS: SENOKOT S TAB PO SCH (21:07)
[2016-08-28] MEDS: OMEPRAZOLE 20 MG CAP PO SCH (21:07)
[2016-08-28] MEDS: HEPARIN SOD (PORCINE) 5000 UNITS/ML VIAL SC SCH (21:07)
[2016-08-28] MEDS: OMEGA-3 1050MG CAPSULE PO SCH (21:07)
[2016-08-28] MEDS: GABAPENTIN 300 MG CAP PO SCH (21:07)
[2016-08-28] MEDS: SIMVASTATIN 20 MG TAB PO SCH (21:07)
[2016-08-28 22:00] VITALS: BP 163/76
[2016-08-29] MEDS: PIPERACILLIN/TAZOBACTAM SOD 2.25 GM in D5W MINI-BAG PLUS 50 ML IV SCH ×3 (04:59→21:08)
[2016-08-29 06:00] VITALS: BP 160/70
[2016-08-29] MEDS: VANCOMYCIN HCL 750 MG, VIAL MATE ADAPTER 1 EACH in D5W 250 ML IV SCH ×2 (06:19→18:22)
[2016-08-29] MEDS: HEPARIN SOD (PORCINE) 5000 UNITS/ML VIAL SC SCH ×3 (06:20→21:13)
[2016-08-29] MEDS: LEVOTHYROXINE 88MCG TABLET (0.088 MG) PO SCH (06:20)
[2016-08-29] MEDS: traMADol 50 MG TAB PO PRN ×2 (06:20→13:49)
[2016-08-29 06:52] LABS: MEAN CORPUSCULAR HEMOGLOBIN 30.4 pg (27.0-33.0); MEAN CORPUSCULAR HGB CONC 32.2 g/dl (32.0-36.5); MEAN CORPUSCULAR VOLUME 94.4 fl (80.0-96.0); RED CELL DISTRIBUTION WIDTH 12.8 % (11.5-14.5); WHITE BLOOD COUNT 8.1 K/mm3 (4.0-10.0)
[2016-08-29 07:09] LABS: CALCIUM LEVEL 8.4 MG/DL (8.8-10.2); CREATININE FOR GFR 1.69 MG/DL (0.55-1.02); GLOMERULAR FILTRATION RATE 31.5 (>39); MAGNESIUM LEVEL 2.2 MG/DL (1.8-2.4); POTASSIUM SERUM 3.5 MEQ/L (3.5-5.1)
[2016-08-29] MEDS: ADVAIR DISKUS 250/50 INH PWD INH SCH ×2 (07:20→19:31)
--- NOTE | 2016-08-29 07:31 | REP ---
RENAL ULTRASOUND: 08/28/2016. COMPARISON: 03/27/2014 ultrasound; CT abdomen pelvis without contrast 10/17/2015. CLINICAL HISTORY: Renal insufficiency. FINDINGS: The right kidney is 10.1 x 4.7 x 4.7 cm. Left kidney is 11.6 x 3.3 x 3.9 cm. There is no hydronephrosis or hydroureter on either side. Cortical echogenicity is similar to the adjacent liver, which may be normal or early medical renal disease. Sinus lipomatosis noted. No cyst or stone noted on the right. The left kidney shows an upper pole cyst 4.9 x 4.1 x 4.6 cm. In the interpolar and lower pole junction laterally on the left is another cyst 1.2 x 1.1 cm. Cortical echogenicity is similar to the liver, which may be normal or early medical renal disease. The bladder is not well evaluated. It is underfilled. Incidental note made of a mobile echogenic gallstones with shadowing and measuring up to 2.4 cm. Gallbladder wall thickness is normal. IMPRESSION: 1. Cortical echogenicity similar to the liver, which may be normal or reflect very early medical renal disease. No hydronephrosis, stone or mass. 2. Upper pole cyst left kidney 4.9 x 4.6 cm interpolar regions, exophytic cyst also on the left 1.2 x 1.9 cm. 3. Bladder cannot be evaluated as it is not adequately filled. 4. A mobile 2.4 cm gallstone noted as an incidental finding. Signed by True Reddy MD 08/29/2016 09:31 A
--- NOTE | 2016-08-29 08:11 | REP ---
RIGHT FOREARM SERIES: 08/28/2016. CLINICAL HISTORY: Right wrist and hand cellulitis extending into forearm. FINDINGS: Soft tissue swelling over the dorsal aspect of the hand and wrist and now extending along the dorsal aspect of the forearm on both views. Radius and ulna without fracture. The radiocarpal joint, carpal articulations and the elbow joint grossly intact. IMPRESSION: 1. Prominent soft tissue swelling dorsal aspect hand and wrist and extending along the dorsal aspect of the forearm. No subjacent bony abnormality or foreign body. 2. No subcutaneous emphysema. Signed by True Reddy MD 08/29/2016 10:36 A
--- NOTE | 2016-08-29 08:14 | REP ---
RIGHT WRIST SERIES, COMPLETE: 08/28/2016 CLINICAL HISTORY: Right hand and wrist cellulitis. COMPARISON: Right hand and forearm series today. FINDINGS: Four views are presented. There is soft tissue swelling over the dorsal aspect of the hand and wrist extending into the upper forearm. Edema in the subcutaneous fat is noted along with that generalized swelling. Marginal osteophytes and degenerative changes at the 1st CMC joint along with fragmentation at joint margins. There is no fracture, erosion or other focal bone lesion. The metacarpals, distal radius and ulna and phalanges visible along with those carpal bones, are without acute bony finding. IMPRESSION: 1. Degenerative changes greatest at the 1st CMC joint but no acute fracture or destructive lesion. 2. Prominent soft tissue swelling over the dorsal aspect of the wrist extending distally in the hand and proximally along the dorsal aspect of the forearm. Signed by True Reddy MD 08/29/2016 10:36 A
--- NOTE | 2016-08-29 08:15 | REP ---
RIGHT HAND SERIES, COMPLETE: 08/28/2016. CLINICAL HISTORY: Cellulitis of the hand and wrist. COMPARISON: Right wrist and forearm series this date. FINDINGS: Four views of the hand are provided. There is prominent soft tissue swelling over the dorsal aspect of the hand and wrist and extending into the forearm. Degenerative changes in some of the carpal bones, particularly the 1st CMC joint, to a lesser extent minor degenerative changes at IP joints and some at the 1st MCP joint. No fracture or destructive lesion. No foreign body. No subcutaneous emphysema. IMPRESSION: 1. Some degenerative changes without fracture or destructive lesion. Prominent soft tissue swelling noted dorsal aspect hand, wrist and forearm. Signed by True Reddy MD 08/29/2016 10:36 A
[2016-08-29] MEDS: GABAPENTIN 300 MG CAP PO SCH ×2 (10:19→21:12)
[2016-08-29] MEDS: LACTOBACILLUS ACIDOPHILUS CAP (BACID) PO SCH ×3 (10:19→21:12)
[2016-08-29] MEDS: PARoxetine 20 MG TAB PO SCH (10:19)
[2016-08-29] MEDS: SENOKOT S TAB PO SCH ×2 (10:19→21:11)
[2016-08-29] MEDS: ACETAMINOPH W/CODEINE #3 TAB UD PO PRN ×2 (10:20→16:16)
[2016-08-29] MEDS: MORPHINE 2 MG/ML 1ML SYRINGE IV PRN ×3 (10:44→21:08)
[2016-08-29] MEDS: FOLIC ACID 1 MG TAB PO SCH (13:48)
[2016-08-29 14:00] VITALS: BP 144/73
--- NOTE | 2016-08-29 15:15 | IPN ---
DATE: 08/29/2016 The patient seen and examined. Continues to report significant right upper extremity pain. Swelling seems to be improved. Denies any fevers, chills, chest pain, pressure or discomfort. VITAL SIGNS: Temperature 97.4, pulse 56, respiration 18, blood pressure 160/70, pulse ox 99% on room air. LABORATORY: WBC 8.1, hemoglobin and hematocrit 11.2/34.8, platelets 217. Chemistry: Sodium 138, potassium 2.5, chloride 104, bicarbonate 28, BUN 28, creatinine 1.69. C reactive protein 8.56, last 8.59. Cultures initially blood culture 102 gram positive cocci in clusters. PHYSICAL EXAMINATION: GENERAL: The patient is alert and oriented times three in no acute distress, mildly obese. HEENT: Normocephalic, atraumatic. PULMONARY: Bilaterally clear to auscultation. CARDIAC: Regular rate and rhythm. Normal S1, S2. ABDOMEN: Soft, nontender, positive bowel sounds. EXTREMITIES: Right hand/wrist area dorsal surface up to the proximal phalanges of the fingers has swollen and erythema with tenderness. Central lesion around the wrist areas with skin breakdown noted that is not draining any exudate. Radial and ulnar pulses are intact. Right upper extremities: Axilla lymphadenopathy detected. Her erythema extends from the wrist and hand area up to the distal forearm dorsal surface, not spreading. Swelling seems to be mildly improved. ASSESSMENT/PLAN: This is a 76-year-old female patient with underlying medical history of hypertension, dyslipidemia, hypothyroidism, gastroesophageal reflux disease (GERD), depression, anxiety, neuralgia, non-Hodgkin lymphoma with enlarged lymph nodes in the abdomen, recurrent, urinary tract infection, (UTI), osteoarthritis of the right knee, osteoporosis, compression fracture of L5 occasional sciatica, chronic obstructive pulmonary disease (COPD) and grade 1 congestive heart failure (CHF), degenerative disc disease. She presented in the emergency room after she had been bitten by her new cat on her right wrist with significant swelling, refractive with outpatient antibiotic regimen. PROBLEMS: 1. Right upper extremity cellulitis: Orthopedics consulted. The patient is on Zosyn and vancomycin, given methicillin resistant Staphylococcus aureus (MRSA) in the urine in the past. IV fluids given. Cultures were sent. Discussed with orthopedics. Follow C-reactive protein. If the patient's condition does not improve, will consider MRI or CT scan for further workup, possible forming abscess. Will consider infectious disease consultation tomorrow. 2. Acute kidney injury: Creatinine at 2.02 improved after IV hydration. Continue to monitor. Ultrasound renal appreciated. Oral hydration. 3. Hypertension: Holding hydrochlorothiazide given elevated kidney function. Continue metoprolol. 4. Dyslipidemia: Continue statin. 5. Hypothyroidism: Continue Synthroid. 6. Gastroesophageal reflux disease: Continue proton pump inhibitor (PPI). 7. COPD: Continue home medication and Advair. Currently does not have any wheeze. 8. Depression: Continue Paxil. 9. Neuralgia: Continue gabapentin. 10. Ankle edema: Leg elevations. Follow strict input and output. The patient does not seem fluid overloaded at this time. 11. History of non-Hodgkin lymphoma. Outpatient followup. 12. Osteoarthritis: Continue home medication. 13. History of grade 1 diastolic heart failure: Currently compensated. Strict input and output with daily weights. 14. Coronary artery disease: Continue aspirin, statin and beta blockers. 15. Deep venous thrombosis (DVT) prophylaxis: Heparin subcutaneously. DISPOSITION PLANNING: Pending clinical improvement. Will consider Infectious disease (ID) followup. If the patient's condition does not improve, will order MRI or CT scan for further workup of forming abscess.
[2016-08-29] MEDS: ESTROGENS VAGINAL CREAM 30GM PV SCH (21:00)
[2016-08-29] MEDS: ASPIRIN 81 MG ENTERIC TAB PO SCH (21:11)
[2016-08-29] MEDS: SIMVASTATIN 20 MG TAB PO SCH (21:11)
[2016-08-29] MEDS: VITAMIN B COMPLEX/VIT C CAP PO SCH (21:11)
[2016-08-29] MEDS: OMEPRAZOLE 20 MG CAP PO SCH (21:11)
[2016-08-29] MEDS: ASCORBIC ACID 500 MG TAB PO SCH (21:11)
[2016-08-29] MEDS: VITAMIN D 1,000 INTERNATIONAL UNITS TABLET PO SCH (21:11)
[2016-08-29] MEDS: VITAMIN E 400 INTERNATIONAL UNITS CAP PO SCH (21:12)
[2016-08-29] MEDS: METOPROLOL TART 12.5 MG PER 1/2 TAB PO SCH (21:12)
[2016-08-29] MEDS: OMEGA-3 1050MG CAPSULE PO SCH (21:12)
[2016-08-29 22:00] VITALS: BP 129/59
[2016-08-30] MEDS: PIPERACILLIN/TAZOBACTAM SOD 2.25 GM in D5W MINI-BAG PLUS 50 ML IV SCH ×2 (03:01→12:00)
[2016-08-30] MEDS: traMADol 50 MG TAB PO PRN ×3 (03:02→17:30)
[2016-08-30] MEDS: VANCOMYCIN HCL 750 MG, VIAL MATE ADAPTER 1 EACH in D5W 250 ML IV SCH (05:52)
[2016-08-30 06:00] VITALS: BP 138/63
[2016-08-30] MEDS: HEPARIN SOD (PORCINE) 5000 UNITS/ML VIAL SC SCH ×3 (06:43→21:30)
[2016-08-30] MEDS: LEVOTHYROXINE 88MCG TABLET (0.088 MG) PO SCH (06:43)
[2016-08-30] MEDS: ACETAMINOPH W/CODEINE #3 TAB UD PO PRN ×3 (06:46→19:03)
[2016-08-30 06:48] LABS: MEAN CORPUSCULAR HGB CONC 33.1 g/dl (32.0-36.5); MEAN CORPUSCULAR VOLUME 93.8 fl (80.0-96.0); WHITE BLOOD COUNT 6.6 K/mm3 (4.0-10.0)
[2016-08-30 07:05] LABS: CALCIUM LEVEL 8.7 MG/DL (8.8-10.2); CREATININE FOR GFR 1.6 MG/DL (0.55-1.02); GLOMERULAR FILTRATION RATE 33.5 (>39); POTASSIUM SERUM 3.7 MEQ/L (3.5-5.1)
[2016-08-30] MEDS: ADVAIR DISKUS 250/50 INH PWD INH SCH ×2 (07:24→20:37)
[2016-08-30] MEDS: SENOKOT S TAB PO SCH (09:00)
[2016-08-30] MEDS: FOLIC ACID 1 MG TAB PO SCH (09:27)
[2016-08-30] MEDS: PARoxetine 20 MG TAB PO SCH (09:28)
[2016-08-30] MEDS: GABAPENTIN 300 MG CAP PO SCH ×2 (09:28→21:31)
[2016-08-30] MEDS: LACTOBACILLUS ACIDOPHILUS CAP (BACID) PO SCH ×3 (09:28→21:31)
[2016-08-30] MEDS ORDERED: LOPERAMIDE 2 MG CAP PO ONE (10:30)
--- NOTE | 2016-08-30 16:00 | REP ---
PICC line insertion: History: Poor IV access. Antibiotic therapy needed. Procedure: The patient was interviewed and informed consent was obtained. The patient's daughter was also in attendance. The left arm was assessed by ultrasound and left basilic vein access site was identified and the skin was marked. The patient was placed on the angiography table and the left arm skin was prepped and draped in the usual fashion. After patient a safety time-out was articulated and agreed to, a micropuncture technique was deployed using aseptic precautions, 1% lidocaine for local anesthetic and real-time sonographic guidance and the left basilic vein was cannulated. A guidewire was passed and the puncture needle was removed. A 43 cm 4.5 [place]ian single-lumen PICC line was installed with its tip positioned under fluoroscopy in the superior vena cava. The catheter was affixed to the skin with an occlusive OpSite dressing and the catheter lumen was flushed with heparinized saline and heparin per hospital protocol. The patient tolerated procedure well. 0.5 minutes of fluoroscopy time was utilized. Impression: Left basilic vein PICC line placement. Signed by Dong Lopez MD 08/30/2016 04:47 P
[2016-08-30] MEDS: cefTRIAXone SOD 2 GM in D5W MINI-BAG PLUS 50 ML IV SCH (17:30)
--- NOTE | 2016-08-30 18:15 | IPN ---
DATE: 08/30/2016 The patient seen and examined. Continues to report right upper extremity pain. Seems to be improved compared to yesterday. Still mildly swollen. Denies any fever or chills, chest pain, pressure or discomfort. Denies any nausea or vomiting. Reported diarrhea. VITAL SIGNS: Temperature 98.1, pulse 58, respirations 18, blood pressure 138.63, pulse oximetry 96% on room air. LABORATORY: WBC 6.6, hemoglobin and hematocrit 10.9/33.1, platelet 225. Chemistry: Sodium 139, potassium 3.7, chloride 106, bicarbonate 26, BUN 24, creatinine 1.6. PHYSICAL EXAMINATION: GENERAL: The patient alert and oriented times three. No acute distress. Obese. HEENT: Normocephalic, atraumatic. PULMONARY: Bilateral clear to auscultation. CARDIAC: Regular rate and rhythm. Normal S1, S2. ABDOMEN: Soft, nontender, positive bowel sounds. EXTREMITIES: Right hand and wrist area dorsal surface with erythema, mildly swollen. Seems to be much better. Tender to palpation. Central lesion. The erythema seems to be retracting toward more of the wrist area from both distal fingers. Is actually going back to more of the dorsal hand and also shrinking as well from the distal forearm as well. ASSESSMENT AND PLAN: This is a 76-year-old female patient with underlying medical history of hypertension, dyslipidemia, hypothyroidism, gastroesophageal reflux disease (GERD), depression, anxiety, neuralgia, non-Hodgkin lymphoma with some enlarged lymph nodes in the abdomen, recurrent urinary tract infection (UTI), osteoarthritis of the right knee, osteoporosis, compression fracture of L5 with occasional sciatica, chronic obstructive pulmonary disease (COPD), grade 1 diastolic heart failure, degenerative disc disease, presented to the hospital after bitten by her new cat on her right wrist with significant swelling, refractive to outpatient antibiotics regimen. PROBLEMS: 1. Right upper extremity cellulitis. Orthopedics consulted. Ultrasound appreciated as per orthopedics. There is no fluid pocket to be tapped. Initially on Zosyn and vancomycin given Methicillin-resistant Staphylococcus aureus (MRSA) in the urine in the past. Fluids were initially given. Infectious disease was consulted. Cultures were sent. Antibiotics de-escalated by Dr. Brown to [place]. C-reactive protein appreciated. Will consider further imaging study. If patient does not improve. Followup C-reactive protein. 2. Acute kidney injury. Creatinine improved with IV fluids. Renal ultrasound appreciated. Oral hydration encouraged. Continue to monitor. 3. Hypertension. Holding hydrochlorothiazide given elevated kidney function. Continue metoprolol. 4. Hypothyroidism. Continue Synthroid. 5. Gastroesophageal reflux disease (GERD). Continue proton pump inhibitor (PPI). 6. Chronic obstructive pulmonary disease (COPD). Patient not having any wheeze. Continue Advair. 7. Depression. Continue Paxil. 8. Urology. Continue gabapentin. 9. Ankle edema. Leg elevation. Strict intake and output (I and Os). Continue to monitor. Patient currently euvolemic. 10. History of non-Hodgkin lymphoma. Outpatient followup. 11. Osteoarthritis. Continue home medication. 12. History of grade 1 diastolic heart failure. Currently compensated. In no respiratory distress. Strict intake and output (I and Os), daily weight. 13. Coronary arterial disease. Aspirin, statin, beta brisa. 14. Deep venous thrombosis (DVT) prophylaxis. Heparin subcutaneous. DISPOSITION PLANNING: Pending clinical improvement. Final infection disease recommendations. Will continue to monitor. DATE: 08/30/2016 ADDENDUM: The patient had diarrhea overnight. Will check Clostridium difficile (C diff). Imodium given, probiotics.
--- NOTE | 2016-08-30 18:52 | CR ---
DATE OF CONSULTATION: 08/30/2016 I was asked to consult by hospitalists for evaluation of right forearm cellulitis after a cat bite. HISTORY OF PRESENT ILLNESS: Mrs. Caban is a 76-year-old pleasant female who was admitted on August 28 after she developed cellulitis of the right forearm. The patient had a cat bite two days prior to admission within 24 hours she developed redness of the right arm involving the wrist and the dorsum aspect of the hand with severe pain. She went to the urgent care was given Bactrim which she took for a 24 hours. The cellulitis got worse and therefore she came to the emergency room. In the emergency room she was given Augmentin and was told to come back the next day. At that point it was deemed that she had worsening cellulitis and she was started on intravenous (IV) vancomycin and Zosyn with improvement of the pain and range of motion. The patient still has difficulty with a extension of her fingers and movement of her wrist. She has had no fever or chills. No nausea, vomiting. She had some diarrhea today. She has been afebrile throughout this admission which is past 48 hours. PAST MEDICAL HISTORY: Significant for hypertension, hyperlipidemia, hypothyroidism, gastroesophageal reflux disease, chronic obstructive obstructive pulmonary disease (COPD), depression, anxiety, bilateral neurology of the feet ,history of non-Hodgkins lymphoma. The patient states she has been in remission for 10 years. Recurrent urinary tract infection (UTI), osteoarthritis, osteoporosis with compression fracture of L5, recurrent urinary tract infection and sepsis, diastolic dysfunction with heart failure, degenerative disk disease. PAST SURGICAL HISTORY: Partial hysterectomy, right knee replacement cervical discharge or dilatation and curettage. Left wrist surgery for De Quervain's tenosynovitis, anterior diskectomy C4-5 and 6, colonoscopy 2016. ALLERGIES: Latex causing rash. MEDICATIONS: Paxil 20 mg daily, folic acid 1 mg daily, levothyroxine 88 mcg daily, morphine 2 mg IV every 4 hours as needed, tramadol 50 mg by mouth every 6 hours as needed, vitamin C 2000 mg by mouth at bedtime, aspirin 81 mg by mouth at night, vitamin B and C complex, vitamin D 1000 units at bedtime, Premarin vaginal cream, fish oil, gabapentin 600 mg by mouth twice a day, metoprolol 12.5 mg by mouth at night, omeprazole 20 mg by mouth at night, Advair 1 puff inhaled twice a day, Zocor 20 mg by mouth at night, vitamin E 400 units at night, probiotics 1 tablet by mouth three times a day, Senokot 1 tablet by mouth twice a day, Zosyn 2.25 grams IV every 8 hours, vancomycin 750 mg every 12 hours. LABORATORY DATA: White count on admission was 8.2 today 6.6, hemoglobin 10.9, hematocrit 33.1, platelets 225. ESR 58. Sodium 139, potassium 3.7, chloride 106, bicarb 26, BUN 24, creatinine 1.6, glucose 98, calcium 8.7, magnesium two, CRP 8.16 down from 11.4, blood culture one out of two was positive for staph coag negative. No culture from the wrist was obtained. IMAGING STUDIES: Extremity ultrasound shows small diffuse developing subcutaneous abscess which is triangular shaped pointing toward the skin with a sinus tract to the skin renal ultrasound shows upper pole cyst left kidney 4.9 x 4.6 cm another cyst on the left of 1.2 x 1.9 cm echogenicity in the liver. No hydronephrosis or masses. Hand x-ray showed degenerative changes without fracture or destructive lesion prominent soft tissue swelling in the dorsal aspect of the hand, wrist and forearm. PHYSICAL EXAMINATION: She is a healthy pleasant female in no acute distress. Temperature is temperature is 98.1, pulse 58, respirations 18, blood pressure 138/63, O2 sat 96% on room air. Heart normal S1-S2 with no murmurs appreciated. Lungs are clear. No wheezes, rales or rhonchi. Abdomen obese, soft, nontender. Back mild lumbosacral and cervical tenderness. No CVA tenderness. Extremities no clubbing, cyanosis or edema. Right amado and forearm has an area of cellulitis extending to the fingers with redness, tenderness, limited range of motion of the wrist but she is able to move it passively when she works her hand for extension and flexion but she has difficulty with extension of all fingers forefingers. She has no problem with the stump. IMPRESSION: This is a 76-year-old female who had a cat bite within 24 hours developed cellulitis that did not improve with Bactrim or Augmentin. The patient is admitted with tenosynovitis and severe cellulitis of the foreaem There is small abscess that have developed usually if the patient developed cellulitis within 24 hours of a cat bite it is due to Pasteurella Multocida . The patient is currently on IV vancomycin and Zosyn. PLAN Will discontinue broad-spectrum antibiotic and use of Rocephin to cover for Pasteurella the blood culture that is positive is staph coag negative. The patient had MRSA in the urine culture in 2011, but no other positive culture with MRSA. If the patient still has limited range of motion of the wrist and fingers. I would suggest obtaining an MRI tomorrow to rule out tea no synovitis or septic arthritis that may need surgical intervention. MARCIA
[2016-08-30] MEDS: SIMVASTATIN 20 MG TAB PO SCH (21:30)
[2016-08-30] MEDS: OMEGA-3 1050MG CAPSULE PO SCH (21:30)
[2016-08-30] MEDS: ASPIRIN 81 MG ENTERIC TAB PO SCH (21:31)
[2016-08-30] MEDS: METOPROLOL TART 12.5 MG PER 1/2 TAB PO SCH (21:31)
[2016-08-30] MEDS: VITAMIN E 400 INTERNATIONAL UNITS CAP PO SCH (21:31)
[2016-08-30] MEDS: VITAMIN D 1,000 INTERNATIONAL UNITS TABLET PO SCH (21:31)
[2016-08-30] MEDS: OMEPRAZOLE 20 MG CAP PO SCH (21:31)
[2016-08-30] MEDS: ASCORBIC ACID 500 MG TAB PO SCH (21:31)
[2016-08-30] MEDS: VITAMIN B COMPLEX/VIT C CAP PO SCH (21:31)
[2016-08-30] MEDS: ESTROGENS VAGINAL CREAM 30GM PV SCH (21:32)
[2016-08-30 22:00] VITALS: BP 146/68
[2016-08-31] MEDS: traMADol 50 MG TAB PO PRN (00:08)
[2016-08-31] MEDS: HEPARIN SOD (PORCINE) 5000 UNITS/ML VIAL SC SCH ×3 (05:28→20:39)
[2016-08-31] MEDS: LEVOTHYROXINE 88MCG TABLET (0.088 MG) PO SCH (05:28)
[2016-08-31 05:48] LABS: MEAN CORPUSCULAR HEMOGLOBIN 30.3 pg (27.0-33.0); MEAN CORPUSCULAR HGB CONC 32.6 g/dl (32.0-36.5); MEAN CORPUSCULAR VOLUME 93.1 fl (80.0-96.0); WHITE BLOOD COUNT 7.7 K/mm3 (4.0-10.0)
[2016-08-31 06:00] VITALS: BP 149/69
[2016-08-31 06:10] LABS: CALCIUM LEVEL 8.6 MG/DL (8.8-10.2); CREATININE FOR GFR 1.33 MG/DL (0.55-1.02); GLOMERULAR FILTRATION RATE 41.5 (>39); MAGNESIUM LEVEL 1.7 MG/DL (1.8-2.4); POTASSIUM SERUM 4.1 MEQ/L (3.5-5.1)
[2016-08-31] MEDS: ADVAIR DISKUS 250/50 INH PWD INH SCH ×2 (07:15→20:00)
[2016-08-31] MEDS: LACTOBACILLUS ACIDOPHILUS CAP (BACID) PO SCH ×3 (08:22→20:37)
[2016-08-31] MEDS: PARoxetine 20 MG TAB PO SCH (08:23)
[2016-08-31] MEDS: ACETAMINOPH W/CODEINE #3 TAB UD PO PRN (08:23)
[2016-08-31] MEDS: FOLIC ACID 1 MG TAB PO SCH (08:23)
[2016-08-31] MEDS: GABAPENTIN 300 MG CAP PO SCH ×2 (08:23→20:38)
[2016-08-31] MEDS: LOPERAMIDE 2 MG CAP PO PRN (13:34)
[2016-08-31] MEDS: PERCOCET 5MG/325MG TAB PO PRN ×2 (13:35→18:46)
[2016-08-31 14:00] VITALS: BP 145/73
[2016-08-31] MEDS ORDERED: LORazepam 2 MG/ML VIAL (J2060) IV ONE (15:15)
--- NOTE | 2016-08-31 16:28 | IPNPDOC ---
Text Note Date of Service The patient was seen on 08/31/16. NOTE Subjective: Patient states swelling in her right arm has significantly improved. Objective: Vitals: (see below) General: No acute distress, laying comfortably in bed. HEENT: Moist mucous membranes. Neck: No JVD or lymphadenopathy Cardiac: RRR, No murmurs Pulm: Clear to auscultation b/l. No wheezing, rhonchi Abd: NT/ND + BS Ext: No edema or cyanosis in bilateral lower extremities. Right upper extremity with swelling of the dorsum the right hand, and minimal drainage from the site. Pain and erythema significantly improved. Some increased range of motion per patient. Distal pulses intact. Area of cellulitis was previously marked and the area has significantly improved. Labs (see below) Images: X ray radial/ulnar 08/28/16 IMPRESSION: 1. Prominent soft tissue swelling dorsal aspect hand and wrist and extending along the dorsal aspect of the forearm. No subjacent bony abnormality or foreign body.2. No subcutaneous emphysema X-ray right hand 08/28/16 IMPRESSION: 1. Some degenerative changes without fracture or destructive lesion. Prominent soft tissue swelling noted dorsal aspect hand, wrist and forearm. Renal ultrasound 08/28/16 IMPRESSION: 1. Cortical echogenicity similar to the liver, which may be normal or reflect very early medical renal disease. No hydronephrosis, stone or mass. 2. Upper pole cyst left kidney 4.9 x 4.6 cm interpolar regions, exophytic cyst also on the left 1.2 x 1.9 cm. 3. Bladder cannot be evaluated as it is not adequately filled. 4. A mobile 2.4 cm gallstone noted as an incidental finding. Assessment/Plan 1. Cellulitis of the right dorsum of the hand- with extension to the forearm status cat bite. Appreciate Dr. Brown's input. On IV antibiotics. MRI of the hand and forearm ordered for today. Orthopedics have been consulted by Dr. Izquierdo with no additional recommendations. Trend CRP. Follow-up cultures. 2. Acute kidney injury- improved on IV fluids. Her thiazide has been discontinued. Avoid nephrotoxins stroke/I/oh. 3. Hypertension- stable HCTZ held. 4. Hypothyroidism- continue Synthroid 5. GERD- on PPI 6. COPD- continue home inhaler 7. Depression- on Paxil 8. History of non-Hodgkin's lymphoma- follow-up outpatient 9. Rhett arthritis- continue home meds 10. History of grade 1 diastolic heart failure- compensated 11. History of CAD- on aspirin statin beta brisa DVT prophy: Heparin subcutaneous VS,Fishbone, I+O VS, Fishbone, I+O Laboratory Tests 08/31/16 05:30 Red Blood Count 3.59 L, Mean Corpuscular Volume 93.1, Mean Corpuscular Hemoglobin 30.3, Mean Corpuscular Hemoglobin Concent 32.6, Red Cell Distribution Width 13.0, Calcium Level 8.6 L Vital Signs Date Time Temp Pulse Resp B/P (MAP) Pulse Ox O2 Delivery O2 Flow Rate FiO2 08/31/16 14:05 16 08/31/16 14:00 97.7 66 145/73 (97) 94 Nasal Cannula 2.0 I&O- Last 24 Hours up to 6 AM 08/31/16 06:00 Intake Total 1080 ml Output Total 1200 ml Balance -120 ml KULDIP VALDOVINOS MD Aug 31, 2016 16:28
[2016-08-31] MEDS: cefTRIAXone SOD 2 GM in D5W MINI-BAG PLUS 50 ML IV SCH (18:45)
[2016-08-31 20:00] VITALS: O2SAT 96
[2016-08-31] MEDS: ASCORBIC ACID 500 MG TAB PO SCH (20:37)
[2016-08-31] MEDS: OMEPRAZOLE 20 MG CAP PO SCH (20:37)
[2016-08-31] MEDS: VITAMIN E 400 INTERNATIONAL UNITS CAP PO SCH (20:37)
[2016-08-31] MEDS: VITAMIN B COMPLEX/VIT C CAP PO SCH (20:38)
[2016-08-31] MEDS: VITAMIN D 1,000 INTERNATIONAL UNITS TABLET PO SCH (20:38)
[2016-08-31] MEDS: SIMVASTATIN 20 MG TAB PO SCH (20:38)
[2016-08-31] MEDS: OMEGA-3 1050MG CAPSULE PO SCH (20:38)
[2016-08-31] MEDS: ASPIRIN 81 MG ENTERIC TAB PO SCH (20:38)
[2016-08-31] MEDS: ESTROGENS VAGINAL CREAM 30GM PV SCH (20:39)
[2016-08-31 20:44] VITALS: BP 140/90
[2016-08-31] MEDS: METOPROLOL TART 12.5 MG PER 1/2 TAB PO SCH (20:44)
[2016-08-31 22:00] VITALS: BP 140/90
[2016-09-01] MEDS: LEVOTHYROXINE 88MCG TABLET (0.088 MG) PO SCH (05:36)
[2016-09-01] MEDS: HEPARIN SOD (PORCINE) 5000 UNITS/ML VIAL SC SCH (05:37)
[2016-09-01 05:59] LABS: MEAN CORPUSCULAR HEMOGLOBIN 31.1 pg (27.0-33.0); MEAN CORPUSCULAR HGB CONC 33.3 g/dl (32.0-36.5); MEAN CORPUSCULAR VOLUME 93.4 fl (80.0-96.0); RED CELL DISTRIBUTION WIDTH 12.9 % (11.5-14.5); WHITE BLOOD COUNT 6.8 K/mm3 (4.0-10.0)
[2016-09-01 06:00] VITALS: BP 150/67
[2016-09-01 06:28] LABS: CALCIUM LEVEL 8.6 MG/DL (8.8-10.2); CREATININE FOR GFR 1.25 MG/DL (0.55-1.02); GLOMERULAR FILTRATION RATE 44.6 (>39); MAGNESIUM LEVEL 1.8 MG/DL (1.8-2.4); POTASSIUM SERUM 4.3 MEQ/L (3.5-5.1)
[2016-09-01] MEDS: ADVAIR DISKUS 250/50 INH PWD INH SCH (07:21)
[2016-09-01] MEDS: GABAPENTIN 300 MG CAP PO SCH (08:48)
[2016-09-01] MEDS: PARoxetine 20 MG TAB PO SCH (08:48)
[2016-09-01] MEDS: LACTOBACILLUS ACIDOPHILUS CAP (BACID) PO SCH (08:48)
[2016-09-01] MEDS: FOLIC ACID 1 MG TAB PO SCH (08:48)
[2016-09-01] MEDS: LOPERAMIDE 2 MG CAP PO PRN (08:50)
--- NOTE | 2016-09-01 09:41 | REP ---
MRI right forearm: History: Cellulitis, abscess. Technique: The study is incomplete as the patient was unable to remain motionless and tolerate imaging. A single axial T1-weighted sequence shows severe motion artifact. The exam could not be accomplished. Impression: Incomplete exam due to motion. Signed by Dong Lopez MD 09/01/2016 03:22 P
[2016-09-01] MEDS ORDERED: RISATAB3 PO (13:02)
[2016-09-01] MEDS ORDERED: AUGM875T27 PO (13:02)
--- NOTE | 2016-09-01 13:03 | IPN ---
DATE: 08/31/2016 The patient was seen in the afternoon, she was still waiting for her MRI. She was having better range of motion of the hand, but still had significant pain. Temperature 98.4, pulse 63, respirations 18, blood pressure 140/90, oxygen saturation 97% on 1 liter nasal cannula. Heart: Normal S1,S2. No murmurs. Lungs: Clear. Abdomen: Soft, nontender. Extremities: No edema in the lower extremities. Right hand has significant tenderness still on the dorsal aspect of the hand. She had better range of motion of the extensors of the fingers. She still had some pain with wrist motion. LABORATORY DATA: White count 7.7, hemoglobin 10.9, hematocrit 33.4, and platelets 244. Sodium 143, potassium 4.1, chloride 109, bicarbonate 31, BUN 23, creatinine 1.3, glucose 87, calcium 8.6, magnesium 1.7. CRP 7.02 down from 11.4. Blood culture was Staph coag negative. Repeat blood cultures were done on September 01 and are pending. MRI of poor quality, incomplete exam due to motion. IMPRESSION: Cat bite with secondary cellulitis and concern for tenosynovitis. MRI was of poor quality. The patient is anxious to go home. Her white count is normal. She is afebrile. Her CRP is improving. PLAN: If patient continues to improve with decreasing CRP and increase range of motion, she could be discharged home on Augmentin 875 mg by mouth twice a day for 10-14 days. She needs to follow up with orthopedics or infectious disease in 7-10 days.
[2016-09-01] MEDS ORDERED: ALIG4CAP PO (13:55)
--- NOTE | 2016-09-01 14:29 | DS.PDOC ---
Discharge Summary General Date of Admission Aug 28, 2016 at 15:24 Date of Discharge 09/01/16 Attending Physician: KULDIP VALDOVINOS MD Specialist/Consultants Involve: Corin Brown MD Specialist/Consultants Involve Dr. Salinas (ortho) Discharge Summary PROCEDURES PERFORMED DURING STAY: None. ADMITTING/DISCHARGE DIAGNOSES: 1. Cellulitis of the left hand/arm status post cat bite 2. Acute kidney injury 3. Hypertension 4. Hypothyroidism 5. GERD 6. COPD 7. Depression 8. History of non-Hodgkin's lymphoma 9. Osteoarthritis 10. History of grade 1 diastolic heart failure 11. History of CAD COMPLICATIONS/CHIEF COMPLAINT: Cellulitis Of Right Forearm. HISTORY OF PRESENT ILLNESS/HOSPITAL COURSE: . This is a 76-year-old female past medical history of COPD, hypothyroidism, hypertension who presents with significant swelling, redness, and cellulitis of the right dorsum hand with tracking up to the forearm. Patient had been bitten by a her cat, had presented to her primary care physician as well as the ED, received antibiotics however did not have any significant improvement. Patient return to the ED, was evaluated by orthopedics as well as infectious disease. Patient was placed on broad-spectrum antibiotics narrowed down to Rocephin. Patient's cellulitis has significantly improved. I have spoken to orthopedics who did not recommend MRI. I have also spoken with Dr. Brown, and will send patient home today on Augmentin to complete a course of 10 days of antibiotics. Patient will follow-up with Dr. Brown in 10 days. She is to return to the ED if erythema/symptoms worsen. DISCHARGE MEDICATIONS: Please see below. ALLERGIES: Please see below. PHYSICAL EXAMINATION ON DISCHARGE: VITAL SIGNS: Please see below. Vitals: (see below) General: No acute distress, laying comfortably in bed. HEENT: Moist mucous membranes. Neck: No JVD or lymphadenopathy Cardiac: RRR, No murmurs Pulm: Clear to auscultation b/l. No wheezing, rhonchi Abd: NT/ND + BS Ext: No edema or cyanosis in bilateral lower extremities. Right upper extremity with swelling of the dorsum the right hand, and minimal drainage from the site. Pain and erythema significantly improved. Some increased range of motion per patient. Distal pulses intact. Area of cellulitis was previously marked and the area has significantly improved. LABORATORY DATA: Please see below. IMAGING: X ray radial/ulnar 08/28/16 IMPRESSION: 1. Prominent soft tissue swelling dorsal aspect hand and wrist and extending along the dorsal aspect of the forearm. No subjacent bony abnormality or foreign body.2. No subcutaneous emphysema X-ray right hand 08/28/16 IMPRESSION: 1. Some degenerative changes without fracture or destructive lesion. Prominent soft tissue swelling noted dorsal aspect hand, wrist and forearm. Renal ultrasound 08/28/16 IMPRESSION: 1. Cortical echogenicity similar to the liver, which may be normal or reflect very early medical renal disease. No hydronephrosis, stone or mass. 2. Upper pole cyst left kidney 4.9 x 4.6 cm interpolar regions, exophytic cyst also on the left 1.2 x 1.9 cm. 3. Bladder cannot be evaluated as it is not adequately filled. 4. A mobile 2.4 cm gallstone noted as an incidental finding. PROGNOSIS: Fair ACTIVITY: As tolerated. DIET: As tolerated DISCHARGE PLAN/DISPOSITION: D/c Home DISCHARGE INSTRUCTIONS: 1. F/u with PCP in 1-2 weeks. F/u with Ortho as directed. F/u with Dr. Brown in 10 days. DISCHARGE CONDITION: Stable. TIME SPENT ON DISCHARGE: Greater than 30 minutes. Vital Signs/I&Os Vital Signs Date Time Temp Pulse Resp B/P (MAP) Pulse Ox O2 Delivery O2 Flow Rate FiO2 09/01/16 09:28 65 99 Room Air 09/01/16 06:00 97.9 18 150/67 (94) 1.0 I&O- Last 24 Hours up to 6 AM 09/01/16 06:00 Intake Total 1320 ml Output Total 1250 ml Balance 70 ml Laboratory Data Labs 24H Laboratory Tests 2 09/01/16 05:37: Anion Gap 3L, Glomerular Filtration Rate 44.6, Blood Urea Nitrogen 20H, Creatinine 1.25H, Sodium Level 143, Potassium Level 4.3, Chloride Level 111H, Carbon Dioxide Level 29, Calcium Level 8.6L, Magnesium Level 1.8, C-Reactive Protein, Quantitative 4.74H CBC/BMP Laboratory Tests 09/01/16 05:37 Red Blood Count 3.25 L, Mean Corpuscular Volume 93.4, Mean Corpuscular Hemoglobin 31.1, Mean Corpuscular Hemoglobin Concent 33.3, Red Cell Distribution Width 12.9, Calcium Level 8.6 L Microbiology Microbiology 09/01/16 Blood Culture, Received Pending 09/01/16 Blood Culture, Received Pending 08/28/16 Blood Culture - Preliminary, Resulted No Growth after 72 hours. All specime... 08/28/16 Blood Culture - Final, Complete Staphylococcus Epidermidis 08/30/16 Clostridium difficile (PCR) - Final, Complete Discharge Medications Scheduled (Red Wine Extract) 1 Cap Cap, 1 CAP PO QHS, (Reported) (Cranberry) 425 Mg Cap, 1,700 MG PO QHS, (Reported) (Co Q-10) 100 Mg Cap, 100 MG PO QHS, (Reported) (Probiotic) 1 Cap Cap, 1 CAP PO QHS, (Reported) (Icaps) 1 Cap Cap, 1 CAP PO QHS, (Reported) (Align) 4 Mg Cap, 4 MG PO DAILY Amoxicillin/Clavulanate Potas (Augmentin 875-125 mg) 1 Tab Tab, 875 MG PO BID Ascorbic Acid (Vitamin C) 1,000 Mg Tab, 2,000 MG PO QHS, (Reported) Aspirin (Aspirin 81) 81 Mg Tab, 81 MG PO QHS, (Reported) B1/B2/B3/B5/B6 (Vitamin B Complex) 1 Tab Tab, 1 TAB PO QHS, (Reported) Calcium (Calcium) 600 Mg Tab, 600 MG PO QHS, (Reported) Cholecalciferol (Vitamin D) 1,000 Unit Tab, 1,000 UNIT PO QHS, (Reported) Conjugated Estrogens (Premarin) 1 Dose/30 Gm Cr, 1 DOSE PV QHS, (Reported) Curcuma Longa (Turmeric) Extra (Turmeric) 500 Mg Cap, 1,000 MG PO QHS, (Reported ) Fish Oil (Fish Oil) 1,000 Mg Cap, 1,000 MG PO QHS, (Reported) Folic Acid (Folic Acid) 400 Mcg Tab, 400 MCG PO QHS, (Reported) Gabapentin (Gabapentin) 600 Mg Tab, 600 MG PO BID, (Reported) Levothyroxine Sodium (Levoxyl) 88 Mcg Tab, 88 MCG PO DAILY, (Reported) Lysine (Lysine) 500 Mg Cap, 500 MG PO QHS, (Reported) Magnesium Oxide (Magnesium) 400 Mg Tab, 400 MG PO QHS, (Reported) Metoprolol Tartrate (Metoprolol Tartrate) 12.5 Mg Halftab, 12.5 MG PO QHS, ( Reported) Omeprazole (Omeprazole) 20 Mg Tab, 20 MG PO QHS, (Reported) Paroxetine (Paroxetine HCl) 20 Mg Tab, 20 MG PO DAILY, (Reported) Salmeterol/Fluticasone (Advair Diskus 250-50 Mcg/Dose) 14 Puff/Inhaler Aerp, 1 PUFF INH BID, (Reported) Simvastatin (Simvastatin) 20 Mg Tab, 20 MG PO QHS, (Reported) Vitamin E (Vitamin E) 400 Unit Cap, 400 UNIT PO QHS, (Reported) Zinc (Zinc) 50 Mg Tab, 50 MG PO QHS, (Reported) Scheduled PRN Acetaminophen/Codeine (Tylenol/Codeine #3 300-30 mg) 1 Tab Tab, 1 TAB PO Q6H PRN for PAIN, (Reported) Allergies Coded Allergies: Latex (Verified Allergy, Unknown, 08/27/16) KULDIP Hernandes MD Sep 01, 2016 14:29
== END 2016-09-01 14:35 | disposition home or self-care (01) | DRG 603 ==
LOC: M ED 11:33 → M ED INP 15:24 → M MS5PR 17:00
PROVIDERS: ADMIT Hospitalist; ATTEND Internal Medicine
PROC: 02HV33Z Insertion of Infusion Device into Superior Vena Cava, Percutaneous Approach (ICD-10-PCS; principal; 2016-08-30)
DX: L03.113 Cellulitis of right upper limb (principal); N17.9 Acute kidney failure, unspecified; I50.32 Chronic diastolic (congestive) heart failure; C85.90 Non-Hodgkin lymphoma, unspecified, unspecified site; I25.10 Atherosclerotic heart disease of native coronary artery without angina pectoris; E03.9 Hypothyroidism, unspecified; I11.9 Hypertensive heart disease without heart failure; J44.9 Chronic obstructive pulmonary disease, unspecified; K21.9 Gastro-esophageal reflux disease without esophagitis; F32.9 Major depressive disorder, single episode, unspecified; M17.11 Unilateral primary osteoarthritis, right knee; S51.851D Open bite of right forearm, subsequent encounter; W55.01XD Bitten by cat, subsequent encounter; Y92.009 Unspecified place in unspecified non-institutional (private) residence as the place of occurrence of the external cause; K80.20 Calculus of gallbladder without cholecystitis without obstruction; Z79.899 Other long term (current) drug therapy; Z79.82 Long term (current) use of aspirin; Z91.040 Latex allergy status; E78.5 Hyperlipidemia, unspecified; F41.9 Anxiety disorder, unspecified; M79.2 Neuralgia and neuritis, unspecified; M51.36 Other intervertebral disc degeneration, lumbar region; M81.0 Age-related osteoporosis without current pathological fracture

== ENCOUNTER → 2016-09-09 | Outpatient (REF) | payer MEDICARE, OTHER ==
[~2016-09-09] MED LIST changes: +ADV250INH INH; +ALIG4CAP PO; +AMOX500T2 PO; +ASPI1TAB PO; +AUGM875T28 PO; +CALC600T31 PO; +CEPH250T PO; +CO Q100C PO; +CRAN425C2 PO; +ESTR62CR PV; +FISH1000 PO; +FOLI400T PO; +GABA600T PO; +HYDR25TAB PO; +IBUP1TAB6 PO; +ICAPCAP PO; +LEVO88TA24 PO; +LYSI500C PO; +MAGN1TAB25 PO; +METO-346 PO; +OMEP20TA PO; +PARO20TA3 PO; +PROBCAP14 PO; +RISATAB3 PO; +SIMV20TA2 PO; +TURM500C3 PO; +TYLETAB14 PO; +VITA10006 PO; +VITA100066 PO; +VITA400C7 PO; +VITATAB11 PO; +ZINC50TA PO; +[UNRECOGNIZED DRUG - CODE] PO
[2016-09-09 13:44] LABS: BASO # 0.1 K/mm3 (0.0-0.2); BASO % 0.9 % (0.0-1.0); EOS # 0.2 K/mm3 (0.0-0.50); EOS % 2.7 % (0.0-3.0); LARGE UNSTAINED CELL # 0.1 K/mm3 (0.0-0.4); LARGE UNSTAINED CELL % 1.5 % (0.0-4.0); LYMPH # 1.2 K/mm3 (1.5-4.5); MEAN CORPUSCULAR HEMOGLOBIN 30.1 pg (27.0-33.0); MEAN CORPUSCULAR HGB CONC 32.4 g/dl (32.0-36.5); MONO # 0.4 K/mm3 (0.0-0.8); MONO % 4.9 % (0.0-5.0); NEUTROPHILS # 5.3 K/mm3 (1.8-7.7); PLATELET COUNT, AUTOMATED 325 k/mm3 (150-450); WHITE BLOOD COUNT 7.2 K/mm3 (4.0-10.0)
[2016-09-09 14:50] LABS: ERYTHROCYTE SEDIMENTATION RATE 46 mm/hr (0-30)
== END ==
LOC: M LABDRAW1 10:40
PROVIDERS: ATTEND Orthopaedic Surgery
DX: S61.451D Open bite of right hand, subsequent encounter (principal); X58.XXXD Exposure to other specified factors, subsequent encounter; Y92.89 Other specified places as the place of occurrence of the external cause; Y93.89 Activity, other specified; Y99.8 Other external cause status
CPT/HCPCS: 36415; 85025; 85652; 86140; G0463

== ENCOUNTER → 2016-12-01 | Outpatient (REF) | payer MEDICARE, OTHER ==
[2016-12-02 12:44] LABS: BACTERIA, URINE MOD AMOUNT; HYALINE CAST, URINE NONE SEEN /lpf (0-1); RBC, URINE NONE SEEN /hpf (0-3); SQUAMOUS EPITHELIAL CELL URINE SMALL AMOUNT /hpf (SMALL AMT); WBC, URINE 20-30 /hpf (0-3)
[2016-12-02 12:45] LABS: MICROSCOPIC EXAM PERFORMED
== END ==
LOC: M SMT 11:26
PROVIDERS: ATTEND Specialist
DX: N39.0 Urinary tract infection, site not specified (principal)

== ENCOUNTER 2017-01-26 16:34 | Emergency (ER) | payer MEDICARE, OTHER ==
[~2017-01-26] VITALS: Ht 157.5 cm; Wt 84.1 kg
[2017-01-26] MEDS ORDERED: HYDR25TAB (16:49)
[2017-01-26] MEDS ORDERED: PROAAER10 INH (16:49)
[2017-01-26] MEDS ORDERED: LOPR1TAB6 PO (16:49)
[2017-01-26] MEDS ORDERED: ESOM1CAP5 PO (16:49)
[2017-01-26] MEDS ORDERED: NS 1,000 ML IV ONE (20:00)
[2017-01-26] MEDS ORDERED: MORPHINE 2 MG/ML 1ML SYRINGE IV ONE (20:00)
[2017-01-26] MEDS ORDERED: ONDANSETRON 4MG/2ML VIAL (J2405) IV ONE (20:00)
[2017-01-26 20:44] LABS: BASO # 0.1 10^3/uL (0.0-0.2); BASO % 0.9 % (0.0-1.0); EOS # 0.2 10^3/uL (0.0-0.50); EOS % 3.2 % (0.0-3.0); IMMATURE GRANULOCYTE % 0.3 % (0-0); LYMPH # 1.8 10^3/uL (1.5-4.5); LYMPH % 26.3 % (24.0-44.0); MEAN CORPUSCULAR HGB CONC 32.4 g/dl (32.0-36.5); MEAN CORPUSCULAR VOLUME 89.5 fl (80.0-96.0); MONO # 0.5 10^3/uL (0.0-0.8); MONO % 7.5 % (0.0-5.0); NEUTROPHILS # 4.3 10^3/uL (1.8-7.7); NEUTROPHILS % 61.8 % (36.0-66.0); PLATELET COUNT, AUTOMATED 268 10^3/uL (150-450); RED CELL DISTRIBUTION WIDTH 13.5 % (11.5-14.5); WHITE BLOOD COUNT 6.9 10^3/uL (4.0-10.0)
[2017-01-26 20:59] LABS: ALBUMIN 3.3 GM/DL (3.2-5.2); ALBUMIN/GLOBULIN RATIO 0.92 (1.00-1.93); BILIRUBIN,TOTAL 0.4 MG/DL (0.2-1.0); CALCIUM LEVEL 9.3 MG/DL (8.8-10.2); CREATININE FOR GFR 1.33 MG/DL (0.55-1.02); GLOMERULAR FILTRATION RATE 41.5 (>39); POTASSIUM SERUM 4.1 MEQ/L (3.5-5.1); TOTAL PROTEIN 6.9 GM/DL (6.4-8.2)
[2017-01-26] MEDS ORDERED: ISOVUE-370 76% 100ML VIAL (Q9967) As Ordered ONE (21:20)
--- NOTE | 2017-01-26 23:10 | REPUSA ---
CLINICAL HISTORY: Left abdominal pain. TECHNIQUE: CT abdomen and pelvis following administration of IV contrast. Total DLP 230 mGy*cm. COMPARISON: October 17, 2015. CT ABDOMEN WITH CONTRAST: Lung bases: No lung base infiltrate or effusion. Liver: No hepatic masses. The common hepatic duct measures 6 mm in the elma hepatis, upper limits of normal. Gallbladder: Significantly distended and containing multiple stones. The appearance is similar to the October 2015 exam. Pancreas: No pancreatic duct dilation. Bowel loops: Nondistended. However, there are multiple mesenteric lymph nodes and mild mesenteric fat stranding which may represent mesenteritis. The appearance is slightly progressed compared to the 2015 exam. Spleen: Normal size. Adrenals: Normal size. Kidneys: No hydronephrosis. Nonobstructive right renal stone. 4.7 cm left renal cyst which is stable. Aorta: Normal caliber. There are multiple retroperitoneal para-aortic lymph nodes measuring up to 1.8 cm in short axis dimension. Peritoneum: No free air. Lumbar spine: Advanced degenerative spondylotic changes at multiple levels with disc vacuum phenomeno n. CT PELVIS WITH CONTRAST: Colon: Multiple colonic diverticula without evidence of diverticulitis. The region of sigmoid diverti culitis on the prior exam has resolved. Bladder: Normally distended. Uterus: Hysterectomy. Peritoneum: No fluid. Skeleton: No acute findings. IMPRESSION: 1. Moderate gallbladder distention with cholelithiasis which is largely unchanged compared to prior e xam. If the patient presents with right upper quadrant symptoms, consider further evaluation with ult rasound. 2. Extensive mesenteric lymphadenopathy which has slightly progressed compared to prior exam. This ma y represent mesenteritis or mesenteric lymphadenitis. Lymphoproliferative disorder is not excluded. 3. Retroperitoneal para-aortic lymphadenopathy which is relatively stable compared to prior exam. Lym phoproliferative disorder is not excluded 4. Right nephrolithiasis without hydronephrosis. 5. Diverticulosis without convincing evidence of diverticulitis. The region of sigmoid diverticulitis previously seen has resolved.
[2017-01-26] MEDS ORDERED: CIPR-249 PO (23:53)
[2017-01-26] MEDS ORDERED: CYCL5TAB PO (23:55)
[2017-01-26 23:57] VITALS: BP 145/74
[2017-01-27] MEDS ORDERED: PERCOCET 5MG/325MG TAB PO ONE
[2017-01-27] MEDS ORDERED: CYCLOBENZAPRINE 5MG TABLET PO ONE
== END 2017-01-27 00:10 | disposition home or self-care (01) ==
LOC: M ED 16:34
DX: M54.6 Pain in thoracic spine (principal); K80.20 Calculus of gallbladder without cholecystitis without obstruction; R59.0 Localized enlarged lymph nodes; N20.0 Calculus of kidney; K57.90 Diverticulosis of intestine, part unspecified, without perforation or abscess without bleeding; I10 Essential (primary) hypertension; J44.9 Chronic obstructive pulmonary disease, unspecified; E03.9 Hypothyroidism, unspecified; G62.9 Polyneuropathy, unspecified; Z87.891 Personal history of nicotine dependence; Z79.899 Other long term (current) drug therapy; Z91.040 Latex allergy status
CPT/HCPCS: 74177; 80053; 81001; 85025; 87086; 96361; 96374; 96375; 99284; G0463; J2405; Q9967

== ENCOUNTER → 2017-02-21 | Outpatient (REF) | payer MEDICARE, OTHER ==
[~2017-02-21] MED LIST changes: +CIPR-249 PO; +CYCL5TAB PO; +ESOM1CAP5 PO; +HYDR25TAB; +LOPR1TAB6 PO; +PROAAER10 INH
[2017-02-21 13:17] LABS: BASO # 0.1 10^3/uL (0.0-0.2); BASO % 1.2 % (0.0-1.0); EOS # 0.2 10^3/uL (0.0-0.50); EOS % 2.8 % (0.0-3.0); IMMATURE GRANULOCYTE % 0.3 % (0-0); LYMPH # 1.3 10^3/uL (1.5-4.5); LYMPH % 18.3 % (24.0-44.0); MEAN CORPUSCULAR HEMOGLOBIN 29.2 pg (27.0-33.0); MEAN CORPUSCULAR HGB CONC 31.9 g/dl (32.0-36.5); MEAN CORPUSCULAR VOLUME 91.5 fl (80.0-96.0); MONO # 0.5 10^3/uL (0.0-0.8); MONO % 6.7 % (0.0-5.0); NEUTROPHILS # 4.9 10^3/uL (1.8-7.7); NEUTROPHILS % 70.7 % (36.0-66.0); PLATELET COUNT, AUTOMATED 289 10^3/uL (150-450); RED CELL DISTRIBUTION WIDTH 14.2 % (11.5-14.5); WHITE BLOOD COUNT 6.9 10^3/uL (4.0-10.0)
[2017-02-21 13:42] LABS: ALBUMIN 3.4 GM/DL (3.2-5.2); ALBUMIN/GLOBULIN RATIO 1.03 (1.00-1.93); ALKALINE PHOSPHATASE 79 U/L (45-117); ALT/SGPT 17 U/L (12-78); ANION GAP 6 MEQ/L (8-16); AST/SGOT 16 U/L (7-37); BILIRUBIN,TOTAL 0.5 MG/DL (0.2-1.0); BLOOD UREA NITROGEN 27 MG/DL (7-18); CALCIUM LEVEL 9.6 MG/DL (8.8-10.2); CARBON DIOXIDE LEVEL 28 MEQ/L (21-32); CHLORIDE LEVEL 108 MEQ/L (98-107); CREATININE FOR GFR 1.25 MG/DL (0.55-1.02); GLOMERULAR FILTRATION RATE 44.6 (>39); GLUCOSE, FASTING 81 MG/DL (83-110); POTASSIUM SERUM 4.9 MEQ/L (3.5-5.1); SODIUM LEVEL 142 MEQ/L (136-145); TOTAL PROTEIN 6.7 GM/DL (6.4-8.2); VITAMIN B12 LEVEL > 2000 PG/ML
[2017-02-21 13:43] LABS: FOLATE > 24.0 NG/ML
[2017-02-21 13:44] LABS: ERYTHROCYTE SEDIMENTATION RATE 16 mm/hr (0-30)
== END ==
LOC: M LABNEURO 10:58
PROVIDERS: ATTEND Psychiatry & Neurology Neurology
DX: E07.9 Disorder of thyroid, unspecified (principal); E11.9 Type 2 diabetes mellitus without complications; R20.2 Paresthesia of skin; Z11.3 Encounter for screening for infections with a predominantly sexual mode of transmission

== ENCOUNTER → 2017-05-26 | Outpatient (REF) | payer MEDICARE, OTHER ==
[2017-05-26 17:28] LABS: APPEARANCE, URINE CLOUDY (CLEAR); BACTERIA, URINE AUTO 3+ (NEGATIVE); BILIRUBIN, URINE AUTO NEGATIVE (NEGATIVE); BLOOD, URINE BLOOD NEGATIVE (NEGATIVE); COLOR, URINE YELLOW (YELLOW); GLUCOSE, URINE (UA) AUTO NEGATIVE (NEGATIVE); KETONE, URINE AUTO NEGATIVE (NEGATIVE); LEUKOCYTE ESTERASE, URINE AUTO 3+ (NEGATIVE); NITRITE, URINE AUTO NEGATIVE (NEGATIVE); PROTEIN, URINE AUTO NEGATIVE (NEGATIVE); RBC, URINE AUTO 8 /HPF (0-3); SPECIFIC GRAVITY URINE AUTO 1.009 (1.002-1.035); SQUAMOUS EPITHELIAL CELL UR AU 3 /HPF (0-6); UROBILINOGEN, URINE AUTO 0.2 mg/dL (0.0-2.0); WBC, URINE AUTO TNTC /HPF (0-3)
== END ==
LOC: M SMT 16:23
DX: R30.0 Dysuria (principal)
CPT/HCPCS: 81001

== ENCOUNTER → 2017-09-01 | Outpatient (REF) | payer MEDICARE, OTHER ==
[2017-09-01 18:40] LABS: APPEARANCE, URINE CLOUDY (CLEAR); BACTERIA, URINE AUTO 1+ (NEGATIVE); BILIRUBIN, URINE AUTO NEGATIVE (NEGATIVE); BLOOD, URINE BLOOD NEGATIVE (NEGATIVE); COLOR, URINE YELLOW (YELLOW); GLUCOSE, URINE (UA) AUTO NEGATIVE (NEGATIVE); KETONE, URINE AUTO NEGATIVE (NEGATIVE); LEUKOCYTE ESTERASE, URINE AUTO 3+ (NEGATIVE); NITRITE, URINE AUTO NEGATIVE (NEGATIVE); PROTEIN, URINE AUTO 1+ mg/dL (NEGATIVE); RBC, URINE AUTO 19 /HPF (0-3); SPECIFIC GRAVITY URINE AUTO 1.016 (1.002-1.035); SQUAMOUS EPITHELIAL CELL UR AU 0 /HPF (0-6); UROBILINOGEN, URINE AUTO 0.2 mg/dL (0.0-2.0); WBC, URINE AUTO TNTC /HPF (0-3)
== END ==
LOC: M SMT 16:56
DX: N39.0 Urinary tract infection, site not specified (principal)
CPT/HCPCS: 81001

== ENCOUNTER → 2017-09-09 | Outpatient (REF) | payer MEDICARE, OTHER ==
[2017-09-09 13:21] LABS: APPEARANCE, URINE CLOUDY (CLEAR); BACTERIA, URINE AUTO 3+ (NEGATIVE); BILIRUBIN, URINE AUTO NEGATIVE (NEGATIVE); BLOOD, URINE BLOOD NEGATIVE (NEGATIVE); COLOR, URINE YELLOW (YELLOW); GLUCOSE, URINE (UA) AUTO NEGATIVE (NEGATIVE); KETONE, URINE AUTO NEGATIVE (NEGATIVE); LEUKOCYTE ESTERASE, URINE AUTO 3+ (NEGATIVE); NITRITE, URINE AUTO NEGATIVE (NEGATIVE); PROTEIN, URINE AUTO NEGATIVE (NEGATIVE); RBC, URINE AUTO 10 /HPF (0-3); SPECIFIC GRAVITY URINE AUTO 1.008 (1.002-1.035); SQUAMOUS EPITHELIAL CELL UR AU 2 /HPF (0-6); UROBILINOGEN, URINE AUTO 0.2 mg/dL (0.0-2.0); WBC, URINE AUTO TNTC /HPF (0-3)
== END ==
LOC: M SMT 13:06
DX: N76.1 Subacute and chronic vaginitis (principal)
CPT/HCPCS: 81001

== ENCOUNTER → 2017-09-29 | Outpatient (CLI) | payer MEDICARE, OTHER | LOC: M WHC 11:33 | DX: Z12.31 Encounter for screening mammogram for malignant neoplasm of breast (principal) | CPT/HCPCS: 77067 ==

== ENCOUNTER → 2018-01-16 | Outpatient (REF) | payer MEDICARE, OTHER ==
[2018-01-16 18:31] LABS: AMORPHOUS SEDIMENT MODERATE (NEGATIVE); APPEARANCE, URINE CLOUDY (CLEAR); BACTERIA, URINE AUTO 1+ (NEGATIVE); BILIRUBIN, URINE AUTO NEGATIVE (NEGATIVE); BLOOD, URINE BLOOD NEGATIVE (NEGATIVE); COLOR, URINE YELLOW (YELLOW); GLUCOSE, URINE (UA) AUTO NEGATIVE (NEGATIVE); KETONE, URINE AUTO NEGATIVE (NEGATIVE); LEUKOCYTE ESTERASE, URINE AUTO 3+ (NEGATIVE); MUCUS, URINE SMALL (NEGATIVE); NITRITE, URINE AUTO NEGATIVE (NEGATIVE); PROTEIN, URINE AUTO 1+ mg/dL (NEGATIVE); RBC, URINE AUTO 44 /HPF (0-3); SPECIFIC GRAVITY URINE AUTO 1.016 (1.002-1.035); SQUAMOUS EPITHELIAL CELL UR AU 3 /HPF (0-6); UROBILINOGEN, URINE AUTO 0.2 mg/dL (0.0-2.0); WBC, URINE AUTO TNTC /HPF (0-3); YEAST LIKE CELL URINE AUTO LARGE
== END ==
LOC: M LAB REF 16:39
DX: N39.0 Urinary tract infection, site not specified (principal)
CPT/HCPCS: 81001

== ENCOUNTER → 2018-02-02 | Outpatient (REF) | payer MEDICARE, OTHER ==
[2018-02-02 17:59] LABS: APPEARANCE, URINE CLEAR (CLEAR); BACTERIA, URINE AUTO 1+ (NEGATIVE); BILIRUBIN, URINE AUTO NEGATIVE (NEGATIVE); BLOOD, URINE BLOOD NEGATIVE (NEGATIVE); COLOR, URINE YELLOW (YELLOW); GLUCOSE, URINE (UA) AUTO NEGATIVE (NEGATIVE); KETONE, URINE AUTO NEGATIVE (NEGATIVE); LEUKOCYTE ESTERASE, URINE AUTO NEGATIVE (NEGATIVE); NITRITE, URINE AUTO NEGATIVE (NEGATIVE); PROTEIN, URINE AUTO NEGATIVE (NEGATIVE); RBC, URINE AUTO 1 /HPF (0-3); SPECIFIC GRAVITY URINE AUTO 1.011 (1.002-1.035); SQUAMOUS EPITHELIAL CELL UR AU 2 /HPF (0-6); UROBILINOGEN, URINE AUTO 0.2 mg/dL (0.0-2.0); WBC, URINE AUTO 0 /HPF (0-3)
== END ==
LOC: M LAB REF 16:21
DX: Z87.440 Personal history of urinary (tract) infections (principal)
CPT/HCPCS: 81001

== ENCOUNTER → 2018-02-22 | Outpatient (REF) | payer MEDICARE, OTHER ==
[2018-02-22 16:27] LABS: APPEARANCE, URINE CLOUDY (CLEAR); BACTERIA, URINE AUTO 1+ (NEGATIVE); BILIRUBIN, URINE AUTO NEGATIVE (NEGATIVE); BLOOD, URINE BLOOD NEGATIVE (NEGATIVE); COLOR, URINE YELLOW (YELLOW); GLUCOSE, URINE (UA) AUTO NEGATIVE (NEGATIVE); KETONE, URINE AUTO NEGATIVE (NEGATIVE); LEUKOCYTE ESTERASE, URINE AUTO 3+ (NEGATIVE); MUCUS, URINE SMALL (NEGATIVE); NITRITE, URINE AUTO NEGATIVE (NEGATIVE); PROTEIN, URINE AUTO 2+ mg/dL (NEGATIVE); RBC, URINE AUTO 6 /HPF (0-3); SPECIFIC GRAVITY URINE AUTO 1.015 (1.002-1.035); SQUAMOUS EPITHELIAL CELL UR AU 10 /HPF (0-6); UROBILINOGEN, URINE AUTO 0.2 mg/dL (0.0-2.0); WBC, URINE AUTO TNTC /HPF (0-3)
== END ==
LOC: M LAB REF 16:12
PROVIDERS: ATTEND Obstetrics & Gynecology
DX: R35.0 Frequency of micturition (principal); R30.0 Dysuria

== ENCOUNTER → 2018-03-13 | Outpatient (REF) | payer MEDICARE, OTHER ==
[~2018-03-13] MED LIST changes: -GABA600T; -GABA600T PO; +GABA600T4; +GABA600T4 PO
[2018-03-13 13:02] LABS: APPEARANCE, URINE CLEAR (CLEAR); BACTERIA, URINE AUTO 1+ (NEGATIVE); BILIRUBIN, URINE AUTO NEGATIVE (NEGATIVE); BLOOD, URINE BLOOD NEGATIVE (NEGATIVE); COLOR, URINE YELLOW (YELLOW); GLUCOSE, URINE (UA) AUTO NEGATIVE (NEGATIVE); KETONE, URINE AUTO NEGATIVE (NEGATIVE); LEUKOCYTE ESTERASE, URINE AUTO NEGATIVE (NEGATIVE); NITRITE, URINE AUTO NEGATIVE (NEGATIVE); PROTEIN, URINE AUTO NEGATIVE (NEGATIVE); RBC, URINE AUTO 2 /HPF (0-3); SPECIFIC GRAVITY URINE AUTO 1.014 (1.002-1.035); SQUAMOUS EPITHELIAL CELL UR AU 3 /HPF (0-6); UROBILINOGEN, URINE AUTO 0.2 mg/dL (0.0-2.0); WBC, URINE AUTO 4 /HPF (0-3)
== END ==
LOC: M LAB REF 11:56
PROVIDERS: ATTEND Nurse Practitioner Women's Health
DX: N39.0 Urinary tract infection, site not specified (principal)

== ENCOUNTER → 2018-03-24 | Outpatient (REF) | payer MEDICARE, OTHER ==
[2018-03-24 17:31] LABS: APPEARANCE, URINE CLEAR (CLEAR); BACTERIA, URINE AUTO NEGATIVE (NEGATIVE); BILIRUBIN, URINE AUTO NEGATIVE (NEGATIVE); BLOOD, URINE BLOOD NEGATIVE (NEGATIVE); COLOR, URINE YELLOW (YELLOW); GLUCOSE, URINE (UA) AUTO NEGATIVE (NEGATIVE); KETONE, URINE AUTO NEGATIVE (NEGATIVE); LEUKOCYTE ESTERASE, URINE AUTO NEGATIVE (NEGATIVE); NITRITE, URINE AUTO NEGATIVE (NEGATIVE); PROTEIN, URINE AUTO 1+ mg/dL (NEGATIVE); RBC, URINE AUTO 1 /HPF (0-3); SPECIFIC GRAVITY URINE AUTO 1.015 (1.002-1.035); SQUAMOUS EPITHELIAL CELL UR AU 0 /HPF (0-6); UROBILINOGEN, URINE AUTO 0.2 mg/dL (0.0-2.0); WBC, URINE AUTO 1 /HPF (0-3)
== END ==
LOC: M LAB REF 16:24
PROVIDERS: ATTEND Obstetrics & Gynecology
DX: N39.0 Urinary tract infection, site not specified (principal)

== ENCOUNTER → 2018-04-10 | Outpatient (REF) | payer MEDICARE, OTHER ==
[2018-04-10 15:53] LABS: APPEARANCE, URINE CLOUDY (CLEAR); BACTERIA, URINE AUTO 2+ (NEGATIVE); BILIRUBIN, URINE AUTO NEGATIVE (NEGATIVE); BLOOD, URINE BLOOD NEGATIVE (NEGATIVE); COLOR, URINE AMBER (YELLOW); GLUCOSE, URINE (UA) AUTO NEGATIVE (NEGATIVE); KETONE, URINE AUTO NEGATIVE (NEGATIVE); LEUKOCYTE ESTERASE, URINE AUTO 3+ (NEGATIVE); NITRITE, URINE AUTO POSITIVE (NEGATIVE); PROTEIN, URINE AUTO 1+ mg/dL (NEGATIVE); RBC, URINE AUTO 28 /HPF (0-3); SPECIFIC GRAVITY URINE AUTO 1.013 (1.002-1.035); SQUAMOUS EPITHELIAL CELL UR AU 1 /HPF (0-6); TRANSITIONAL EPITHELIAL AUTO 1 /HPF; WBC, URINE AUTO TNTC /HPF (0-3)
== END ==
LOC: M LAB REF 14:50
PROVIDERS: ATTEND Nurse Practitioner Women's Health
DX: N39.0 Urinary tract infection, site not specified (principal)

== ENCOUNTER → 2018-04-28 | Outpatient (REF) | payer MEDICARE, OTHER ==
[2018-04-28 17:01] LABS: APPEARANCE, URINE TURBID (CLEAR); BACTERIA, URINE AUTO 2+ (NEGATIVE); BILIRUBIN, URINE AUTO NEGATIVE (NEGATIVE); BLOOD, URINE BLOOD 2+ (NEGATIVE); COLOR, URINE YELLOW (YELLOW); GLUCOSE, URINE (UA) AUTO NEGATIVE (NEGATIVE); KETONE, URINE AUTO NEGATIVE (NEGATIVE); LEUKOCYTE ESTERASE, URINE AUTO 3+ (NEGATIVE); MUCUS, URINE SMALL (NEGATIVE); NITRITE, URINE AUTO POSITIVE (NEGATIVE); PROTEIN, URINE AUTO 2+ mg/dL (NEGATIVE); RBC, URINE AUTO 41 /HPF (0-3); SPECIFIC GRAVITY URINE AUTO 1.012 (1.002-1.035); SQUAMOUS EPITHELIAL CELL UR AU 2 /HPF (0-6); UROBILINOGEN, URINE AUTO 0.2 mg/dL (0.0-2.0); WBC, URINE AUTO TNTC /HPF (0-3)
== END ==
LOC: M LAB REF 16:22
PROVIDERS: ATTEND Obstetrics & Gynecology
DX: N39.0 Urinary tract infection, site not specified (principal)

== ENCOUNTER → 2018-05-16 | Outpatient (REF) | payer MEDICARE, OTHER ==
[2018-05-16 19:09] LABS: APPEARANCE, URINE MANUAL TURBID (CLEAR)
[2018-05-16 19:10] LABS: COLOR, URINE MANUAL YELLOW (YELLOW); GLUCOSE, URINE (UA) MANUAL NEGATIVE (NEGATIVE); KETONE, URINE MANUAL NEGATIVE (NEGATIVE); PH,URINE MAN 7.5 UNITS (5.0 - 7.0); PROTEIN, URINE MANUAL TRACE mg/dL (NEGATIVE); SPECIFIC GRAVITY,URINE MANUAL 1.013 (1.002-1.035)
[2018-05-16 19:11] LABS: BILIRUBIN, URINE MANUAL NEGATIVE (NEGATIVE); BLOOD URINE MANUAL TRACE (NEGATIVE); LEUKOCYTE ESTERASE, URINE MAN POSITIVE (NEGATIVE); NITRITE, URINE MANUAL POSITIVE (NEGATIVE); UROBILINOGEN, URINE MANUAL NORMAL (NORMAL)
[2018-05-16 19:24] LABS: BACTERIA, URINE LARGE AMOUNT; HYALINE CAST, URINE NONE SEEN /lpf (0-1); SQUAMOUS EPITHELIAL CELL URINE MOD AMOUNT /hpf (SMALL AMT); TRANSITIONAL EPI CELLS, URINE MOD AMOUNT /hpf; WBC, URINE TNTC /hpf (0-3)
== END ==
LOC: M LAB REF 17:54
PROVIDERS: ATTEND Obstetrics & Gynecology
DX: N39.0 Urinary tract infection, site not specified (principal)

== ENCOUNTER → 2018-05-24 | Outpatient (REF) | payer MEDICARE, OTHER | LOC: M LAB REF 17:34 | PROVIDERS: ATTEND Obstetrics & Gynecology | DX: Z87.440 Personal history of urinary (tract) infections (principal) ==

== ENCOUNTER → 2018-07-07 | Outpatient (REF) | payer MEDICARE, OTHER ==
[~2018-07-07] MED LIST changes: +ACET-716 PO; -ACET30TAB PO; -ASPI1TAB PO; +ASPI81TA26 PO; -MAGN1TAB25 PO; +MAGN1TAB26 PO
[2018-07-07 18:36] LABS: APPEARANCE, URINE TURBID (CLEAR); BACTERIA, URINE AUTO NEGATIVE (NEGATIVE); BILIRUBIN, URINE AUTO NEGATIVE (NEGATIVE); BLOOD, URINE BLOOD NEGATIVE (NEGATIVE); COLOR, URINE YELLOW (YELLOW); GLUCOSE, URINE (UA) AUTO NEGATIVE (NEGATIVE); KETONE, URINE AUTO NEGATIVE (NEGATIVE); LEUKOCYTE ESTERASE, URINE AUTO 3+ (NEGATIVE); NITRITE, URINE AUTO POSITIVE (NEGATIVE); PROTEIN, URINE AUTO 2+ mg/dL (NEGATIVE); RBC, URINE AUTO 28 /HPF (0-3); SPECIFIC GRAVITY URINE AUTO 1.015 (1.002-1.035); SQUAMOUS EPITHELIAL CELL UR AU 7 /HPF (0-6); TRANSITIONAL EPITHELIAL AUTO 1 /HPF; UROBILINOGEN, URINE AUTO 0.2 mg/dL (0.0-2.0); WBC, URINE AUTO TNTC /HPF (0-3)
== END ==
LOC: M LAB REF 16:21
PROVIDERS: ATTEND Obstetrics & Gynecology
DX: N32.81 Overactive bladder (principal); Z87.440 Personal history of urinary (tract) infections

== ENCOUNTER → 2018-07-19 | Outpatient (REF) | payer MEDICARE, OTHER ==
[2018-07-19 12:45] LABS: APPEARANCE, URINE CLEAR (CLEAR); BACTERIA, URINE AUTO NEGATIVE (NEGATIVE); BILIRUBIN, URINE AUTO NEGATIVE (NEGATIVE); BLOOD, URINE BLOOD NEGATIVE (NEGATIVE); COLOR, URINE YELLOW (YELLOW); GLUCOSE, URINE (UA) AUTO NEGATIVE (NEGATIVE); KETONE, URINE AUTO NEGATIVE (NEGATIVE); LEUKOCYTE ESTERASE, URINE AUTO NEGATIVE (NEGATIVE); NITRITE, URINE AUTO NEGATIVE (NEGATIVE); PROTEIN, URINE AUTO NEGATIVE (NEGATIVE); RBC, URINE AUTO 2 /HPF (0-3); SQUAMOUS EPITHELIAL CELL UR AU 7 /HPF (0-6); UROBILINOGEN, URINE AUTO 0.2 mg/dL (0.0-2.0); WBC, URINE AUTO 8 /HPF (0-3)
== END ==
LOC: M LAB REF 11:56
PROVIDERS: ATTEND Obstetrics & Gynecology
DX: N32.81 Overactive bladder (principal); Z87.440 Personal history of urinary (tract) infections

== ENCOUNTER 2018-08-23 10:36 | Emergency (ER) | payer MEDICARE, OTHER ==
[~2018-08-23] VITALS: Ht 154.9 cm; Wt 81.8 kg
[2018-08-23] MEDS ORDERED: MACR100C43 PO (11:23)
[2018-08-23] MEDS ORDERED: ESTR62CR TOP (11:23)
[2018-08-23 11:29] LABS: BASO % 0.6 % (0.0-1.0); EOS % 0.6 % (0.0-3.0); LYMPH # 1.2 10^3/uL (1.5-4.5); LYMPH % 17.7 % (24.0-44.0); MEAN CORPUSCULAR HGB CONC 33.3 g/dl (32.0-36.5); MONO # 0.5 10^3/uL (0.0-0.8); MONO % 6.6 % (0.0-5.0); NEUTROPHILS # 5.1 10^3/uL (1.8-7.7); NEUTROPHILS % 74.1 % (36.0-66.0); PLATELET COUNT, AUTOMATED 268 10^3/uL (150-450); WHITE BLOOD COUNT 6.9 10^3/uL (4.0-10.0)
[2018-08-23 11:52] LABS: ALBUMIN 3.2 GM/DL (3.2-5.2); BILIRUBIN,DIRECT 0.2 MG/DL (0.0-0.2); BILIRUBIN,TOTAL 0.5 MG/DL (0.2-1.0); CALCIUM LEVEL 9.6 MG/DL (8.8-10.2); CREATININE FOR GFR 1.3 MG/DL (0.55-1.30); GLOMERULAR FILTRATION RATE 42.4 (>39); POTASSIUM SERUM 3.5 MEQ/L (3.5-5.1); TOTAL PROTEIN 6.5 GM/DL (6.4-8.2)
[2018-08-23] MEDS ORDERED: ONDANSETRON 4MG/2ML VIAL (J2405) IV ONE ×2 (12:15→14:00)
[2018-08-23] MEDS ORDERED: NS 1,000 ML IV ONE (12:15)
[2018-08-23] MEDS ORDERED: ISOVUE-370 76% 100ML VIAL (Q9967) As Ordered ONE (13:16)
[2018-08-23 13:51] VITALS: BP 135/60
--- NOTE | 2018-08-23 14:07 | REP ---
CT of the abdomen and pelvis with IV contrast, without bowel contrast: Comparison is 01/26/2017. The visualized lung horowitz are unremarkable. The hepatic parenchyma is homogeneous. There is a 2.1-cm gallbladder calculus with rim calcification, not significantly changed. The gallbladder is otherwise unremarkable. The pancreas is normal size and unremarkable. The spleen is normal size unremarkable. The adrenals are unremarkable. There are bilateral simple renal cortical cysts, not significantly changed. On the comparison study there was a nonobstructive right renal calculus. This is no longer present. There is no hydronephrosis on the right on the left. The abdominal aorta is unremarkable. There are aortocaval and mesenteric lymph nodes that have decreased in size. The bowel and mesentery is unremarkable. Pelvis: The cecum is on a redundant mesentery and resides to the left of midline above the bladder. The appendix is not identified, however there is no pericecal phlegmon or abscess. There is a hysterectomy. Vaginal cuff and adnexa are unremarkable. The bladder is unremarkable. There is sigmoid colon diverticulosis. There is no CT evidence of diverticulitis. There is no ascites. There is no pelvic lymph node enlargement. The nodes identified on the previous study have decreased in size. Impression: Gallbladder calculus with rim calcification, unchanged. No biliary duct dilatation, gallbladder wall thickening or pericholecystic fluid. The previous right renal calculus is no longer identified. There is no hydronephrosis. The previously identified retroperitoneal and mesenteric nodes and pelvic nodes have decreased in size. There is no ascites. There is no bowel distension or obstruction. There is sigmoid diverticulosis without diverticulitis. Hysterectomy. No adnexal masses. Advanced degenerative disc disease throughout the lumbar spine. Electronically Signed by Juan Luis Bravo MD 08/23/2018 01:57 P
[2018-08-23] MEDS ORDERED: ZOFR4TAB16 PO (14:21)
--- NOTE | 2018-08-23 19:34 | ECGEPIP ---
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
== END 2018-08-23 14:35 | disposition home or self-care (01) ==
LOC: M ED 10:36
DX: R11.2 Nausea with vomiting, unspecified (principal); R19.7 Diarrhea, unspecified; R10.9 Unspecified abdominal pain; R06.02 Shortness of breath; I10 Essential (primary) hypertension; E07.9 Disorder of thyroid, unspecified; E78.5 Hyperlipidemia, unspecified; G62.9 Polyneuropathy, unspecified; K21.9 Gastro-esophageal reflux disease without esophagitis; F41.9 Anxiety disorder, unspecified; Z79.899 Other long term (current) drug therapy; Z79.890 Hormone replacement therapy; Z91.040 Latex allergy status
CPT/HCPCS: 74177; 80048; 80076; 81001; 83690; 85025; 93005; 96361; 96375; 96376; 99284; J2405; Q9967

== ENCOUNTER → 2018-09-13 | Outpatient (REF) | payer MEDICARE, OTHER ==
[~2018-09-13] MED LIST changes: +ESTR62CR TOP; +MACR100C43 PO; -OMEP20CA3; +OMEP20CA4; +ZOFR4TAB16 PO
[2018-09-13 18:07] LABS: APPEARANCE, URINE CLEAR (CLEAR); BACTERIA, URINE AUTO 1+ (NEGATIVE); BILIRUBIN, URINE AUTO NEGATIVE (NEGATIVE); BLOOD, URINE BLOOD NEGATIVE (NEGATIVE); COLOR, URINE YELLOW (YELLOW); GLUCOSE, URINE (UA) AUTO NEGATIVE (NEGATIVE); KETONE, URINE AUTO NEGATIVE (NEGATIVE); LEUKOCYTE ESTERASE, URINE AUTO TRACE (NEGATIVE); MUCUS, URINE SMALL (NEGATIVE); NITRITE, URINE AUTO NEGATIVE (NEGATIVE); PROTEIN, URINE AUTO NEGATIVE (NEGATIVE); RBC, URINE AUTO 0 /HPF (0-3); SQUAMOUS EPITHELIAL CELL UR AU 1 /HPF (0-6); UROBILINOGEN, URINE AUTO 0.2 mg/dL (0.0-2.0); WBC, URINE AUTO 4 /HPF (0-3)
== END ==
LOC: M LAB REF 17:14
PROVIDERS: ATTEND Obstetrics & Gynecology
DX: N39.0 Urinary tract infection, site not specified (principal)

== ENCOUNTER → 2018-10-03 | Outpatient (CLI) | payer MEDICARE, OTHER ==
[~2018-10-03] MED LIST changes: +FISH300C PO; +L-LY500T14 PO; +MYRB25TA PO; +RESV1CAP2 PO; +VITA400T24 PO; +VITA500C24 PO; +ZINC50TA4 PO
--- NOTE | 2018-10-03 13:09 | REP ---
BILATERAL SCREENING DIGITAL MAMMOGRAM WITH 3D TOMOSYNTHESIS: There are no palpable abnormalities or other breast complaints. The the patient states she has not had a clinical breast examination in over a year The the patient states she performs self-breast examinations zero times per year. The Tyrer-Cuzick Score is: 3.7% . Comparison is 07/05/2011. There are scattered areas of fibroglandular density. There is no dominant mass, micro calcific cluster or architectural distortion that would indicate malignancy. There are scattered benign calcifications compatible adenosis. There are no additional findings on 3D tomosynthesiss. There is no change from the prior study. Impression: BIRADS/ACR category 2 mammogram. Benign findings . Recommendation: Routine annual screening mammography. This mammogram was interpreted with the aid of a FDA approved computer-aided detection system. A. Negative mammogram reports should not delay biopsy if a dominant or clinically suspicious mass is present. B. Not all breast cancers are identified by mammography or tomosynthesis. C. Adenosis and dense breasts may obscure an underlying neoplasm. Patient letter M1. Electronically Signed by Juan Luis Bravo MD 10/03/2018 12:59 P
== END ==
LOC: M WHC 11:23
PROVIDERS: ATTEND Family Medicine
DX: Z12.31 Encounter for screening mammogram for malignant neoplasm of breast (principal)

== ENCOUNTER → 2018-10-04 | Outpatient (REF) | payer MEDICARE, OTHER ==
[2018-10-04 18:07] LABS: APPEARANCE, URINE HAZY (CLEAR); BACTERIA, URINE AUTO NEGATIVE (NEGATIVE); BILIRUBIN, URINE AUTO NEGATIVE (NEGATIVE); BLOOD, URINE BLOOD NEGATIVE (NEGATIVE); COLOR, URINE YELLOW (YELLOW); GLUCOSE, URINE (UA) AUTO NEGATIVE (NEGATIVE); KETONE, URINE AUTO NEGATIVE (NEGATIVE); LEUKOCYTE ESTERASE, URINE AUTO 2+ (NEGATIVE); NITRITE, URINE AUTO NEGATIVE (NEGATIVE); PROTEIN, URINE AUTO NEGATIVE (NEGATIVE); RBC, URINE AUTO 1 /HPF (0-3); SQUAMOUS EPITHELIAL CELL UR AU 4 /HPF (0-6); UROBILINOGEN, URINE AUTO 0.2 mg/dL (0.0-2.0); WBC, URINE AUTO 73 /HPF (0-3)
== END ==
LOC: M LAB REF 17:06
PROVIDERS: ATTEND Nurse Practitioner Women's Health
DX: N39.0 Urinary tract infection, site not specified (principal)

== ENCOUNTER → 2018-10-23 | Outpatient (REF) | payer MEDICARE, OTHER ==
[2018-10-23 18:45] LABS: APPEARANCE, URINE HAZY (CLEAR); BACTERIA, URINE AUTO 2+ (NEGATIVE); BILIRUBIN, URINE AUTO NEGATIVE (NEGATIVE); BLOOD, URINE BLOOD NEGATIVE (NEGATIVE); COLOR, URINE YELLOW (YELLOW); GLUCOSE, URINE (UA) AUTO NEGATIVE (NEGATIVE); KETONE, URINE AUTO NEGATIVE (NEGATIVE); LEUKOCYTE ESTERASE, URINE AUTO 3+ (NEGATIVE); NITRITE, URINE AUTO NEGATIVE (NEGATIVE); PROTEIN, URINE AUTO NEGATIVE (NEGATIVE); RBC, URINE AUTO 4 /HPF (0-3); SPECIFIC GRAVITY URINE AUTO 1.012 (1.002-1.035); SQUAMOUS EPITHELIAL CELL UR AU 1 /HPF (0-6); UROBILINOGEN, URINE AUTO 0.2 mg/dL (0.0-2.0); WBC, URINE AUTO 126 /HPF (0-3)
== END ==
LOC: M LAB REF 17:16
PROVIDERS: ATTEND Obstetrics & Gynecology
DX: Z87.440 Personal history of urinary (tract) infections (principal); R30.0 Dysuria

== ENCOUNTER → 2018-11-10 | Outpatient (REF) | payer MEDICARE, OTHER ==
[2018-11-10 17:32] LABS: APPEARANCE, URINE CLOUDY (CLEAR); BACTERIA, URINE AUTO 2+ (NEGATIVE); BILIRUBIN, URINE AUTO NEGATIVE (NEGATIVE); BLOOD, URINE BLOOD NEGATIVE (NEGATIVE); COLOR, URINE YELLOW (YELLOW); GLUCOSE, URINE (UA) AUTO NEGATIVE (NEGATIVE); KETONE, URINE AUTO NEGATIVE (NEGATIVE); LEUKOCYTE ESTERASE, URINE AUTO 3+ (NEGATIVE); MUCUS, URINE SMALL (NEGATIVE); NITRITE, URINE AUTO NEGATIVE (NEGATIVE); PROTEIN, URINE AUTO NEGATIVE (NEGATIVE); RBC, URINE AUTO 39 /HPF (0-3); SQUAMOUS EPITHELIAL CELL UR AU 1 /HPF (0-6); UROBILINOGEN, URINE AUTO 0.2 mg/dL (0.0-2.0); WBC, URINE AUTO TNTC /HPF (0-3)
== END ==
LOC: M LAB REF 16:13
PROVIDERS: ATTEND Obstetrics & Gynecology
DX: Z87.440 Personal history of urinary (tract) infections (principal)

== ENCOUNTER → 2018-11-27 | Outpatient (REF) | payer MEDICARE, OTHER ==
[2018-11-27 16:38] LABS: APPEARANCE, URINE CLOUDY (CLEAR); BACTERIA, URINE AUTO 3+ (NEGATIVE); BILIRUBIN, URINE AUTO NEGATIVE (NEGATIVE); BLOOD, URINE BLOOD NEGATIVE (NEGATIVE); COLOR, URINE AMBER (YELLOW); GLUCOSE, URINE (UA) AUTO NEGATIVE (NEGATIVE); KETONE, URINE AUTO NEGATIVE (NEGATIVE); LEUKOCYTE ESTERASE, URINE AUTO 3+ (NEGATIVE); NITRITE, URINE AUTO POSITIVE (NEGATIVE); PROTEIN, URINE AUTO 1+ mg/dL (NEGATIVE); RBC, URINE AUTO 57 /HPF (0-3); SPECIFIC GRAVITY URINE AUTO 1.012 (1.002-1.035); SQUAMOUS EPITHELIAL CELL UR AU 2 /HPF (0-6); WBC, URINE AUTO TNTC /HPF (0-3)
== END ==
LOC: M LAB REF 15:53
PROVIDERS: ATTEND Obstetrics & Gynecology
DX: Z87.440 Personal history of urinary (tract) infections (principal)

== ENCOUNTER → 2018-12-13 | Outpatient (REF) | payer MEDICARE, OTHER ==
[2018-12-13 19:01] LABS: APPEARANCE, URINE HAZY (CLEAR); BACTERIA, URINE AUTO 1+ (NEGATIVE); BILIRUBIN, URINE AUTO NEGATIVE (NEGATIVE); BLOOD, URINE BLOOD NEGATIVE (NEGATIVE); COLOR, URINE AMBER (YELLOW); GLUCOSE, URINE (UA) AUTO NEGATIVE (NEGATIVE); KETONE, URINE AUTO NEGATIVE (NEGATIVE); LEUKOCYTE ESTERASE, URINE AUTO 2+ (NEGATIVE); MUCUS, URINE SMALL (NEGATIVE); NITRITE, URINE AUTO POSITIVE (NEGATIVE); PROTEIN, URINE AUTO NEGATIVE (NEGATIVE); RBC, URINE AUTO 4 /HPF (0-3); SPECIFIC GRAVITY URINE AUTO 1.011 (1.002-1.035); SQUAMOUS EPITHELIAL CELL UR AU 1 /HPF (0-6); UROBILINOGEN, URINE AUTO 0.2 mg/dL (0.0-2.0); WBC, URINE AUTO 68 /HPF (0-3)
== END ==
LOC: M LAB REF 16:26
PROVIDERS: ATTEND Obstetrics & Gynecology
DX: N32.81 Overactive bladder (principal); Z87.440 Personal history of urinary (tract) infections; Z79.899 Other long term (current) drug therapy

== ENCOUNTER → 2018-12-21 | Outpatient (REF) | payer MEDICARE, OTHER ==
[~2018-12-21] MED LIST changes: +OMEP-358 PO; -OMEP20TA PO
[2018-12-21 16:48] LABS: APPEARANCE, URINE CLOUDY (CLEAR); BACTERIA, URINE AUTO 1+ (NEGATIVE); BILIRUBIN, URINE AUTO NEGATIVE (NEGATIVE); BLOOD, URINE BLOOD NEGATIVE (NEGATIVE); COLOR, URINE AMBER (YELLOW); GLUCOSE, URINE (UA) AUTO NEGATIVE (NEGATIVE); KETONE, URINE AUTO NEGATIVE (NEGATIVE); LEUKOCYTE ESTERASE, URINE AUTO 2+ (NEGATIVE); NITRITE, URINE AUTO POSITIVE (NEGATIVE); PROTEIN, URINE AUTO 1+ mg/dL (NEGATIVE); RBC, URINE AUTO 17 /HPF (0-3); SPECIFIC GRAVITY URINE AUTO 1.014 (1.002-1.035); SQUAMOUS EPITHELIAL CELL UR AU 7 /HPF (0-6); TRANSITIONAL EPITHELIAL AUTO <1 /HPF; WBC, URINE AUTO TNTC /HPF (0-3)
== END ==
LOC: M LAB REF 16:26
PROVIDERS: ATTEND Obstetrics & Gynecology
DX: Z87.440 Personal history of urinary (tract) infections (principal)

== ENCOUNTER → 2018-12-26 | Outpatient (REF) | payer MEDICARE, OTHER | LOC: M LAB REF 13:02 | PROVIDERS: ATTEND Family Medicine | DX: N39.0 Urinary tract infection, site not specified (principal) ==

== ENCOUNTER 2019-01-11 13:29 | Day surgery (SDC) | payer MEDICARE, OTHER ==
[~2019-01-11] VITALS: Ht 154.9 cm; Wt 78.2 kg
[~2019-01-11 13:29] MED LIST changes: +AZO-95TA3 PO; +B COCAP4 PO; +B-122500 PO; +BIOT5TAB3 PO; +BOTULINUM INJ 100 UNITS (J0585) As Ordered ONE; +D-MAPOW4 PO; -HYDR25TAB; +LIDOCAINE 1% MDV 20ML VIAL SQ PRN; +LR 1,000 ML IV ONE; +OYST1TAB PO; +PRESCAP PO; +ceFAZolin SOD 2 GM in IV 1 EA IV ONE
[2019-01-11] MEDS ORDERED: PROPOFOL 200 MG/20 ML VIAL As Ordered ONE ×2 (15:31→15:35)
[2019-01-11] MEDS ORDERED: ONDANSETRON 4MG/2ML VIAL (J2405) As Ordered ONE (15:31)
--- NOTE | 2019-01-11 15:37 | ECGEPIP ---
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
[2019-01-11] MEDS ORDERED: LIDOCAINE 2% INJ 100 MG/5 ML SDV (FOR ANES.) As Ordered ONE (15:47)
[2019-01-11] MEDS ORDERED: fentaNYL 100 MCG/2 ML INJECTION (J3010) As Ordered ONE (15:47)
[2019-01-11] MEDS ORDERED: MIDAZOLAM INJ 2 MG/2 ML VIAL (J2250) As Ordered ONE (15:47)
[2019-01-11 17:00] VITALS: BP 115/54
--- NOTE | 2019-01-11 22:09 | RO ---
DATE OF PROCEDURE: 01/11/2019 PREOPERATIVE DIAGNOSIS: Recurrent urinary tract infection (UTI) with hematuria. POSTOPERATIVE DIAGNOSIS: Recurrent urinary tract infection with hematuria. PROCEDURE: Cystourethroscopy with biopsy of bladder mucosa. SURGEON: Dr. Smiley Sagastume NUCLEAR POWERPLANT SUPERVISOR: None. ANESTHESIA: Monitored anesthesia care (MAC). DESCRIPTION OF PROCEDURE: Gloria was brought to the operating room where sufficient MAC anesthesia was induced, and she was prepped, draped and positioned in the usual sterile fashion. The pessary was removed as was her Estring and, of course, then she was prepped and the cystoscope placed. 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 With placement of the 30-degree cystoscope, we were able to see the bladder wall, and there was considerable detritus in the bladder. We flushed it out, and we were able to see inflammation of the bladder wall, a little bit of scarring consistent with age. And with distention of the bladder, even fairly mild distention, some bruising/microhemorrhage consistent with interstitial cystitis. The inflammation is certainly consistent with recurrent infection or possibly a stone higher up. Thus far her workup has not found a calcified stone, but she has not had, to my knowledge, a dye study to rule out noncalcified stone, although at 78, there is some concern in regard to the testing as well. There were no polyps, no ulcerative lesions of the bladder wall. We did sample the mucosa rather readily because it is a bit friable, and collected some of the mucoid detritus as well, and then flushed out the bladder several more times, took some pictures. There was normal trigone, normal ureteral meati. Even without the pessary out, there was not a sufficient cystocele defect that it made it appear that the defect alone is the cause of some sort of retention. Certainly some patients with retention have this similar appearance, but she did not have a diverticulum or a contained cystocele causing an outpouching that appeared to be leading to retention per se. And even with flushing the bladder and having the pessary not in the patient, there was not that kind of deformity of the bladder wall, just the inflammation, consistent with the recurrent infection history and definitely visually consistent with interstitial cystitis. After scoping and sampling her, we did also, of course, evaluate the urethra. She had coaction of the urethra at the bladder neck, decent valve impact and no lesions within the urethra either. The case was then ended. Estimated blood loss for the procedure was nothing. Fluid replacement: Crystalloid. Complications: None. Condition and Disposition: Gloria tolerated the procedure well. We did replace the cleaned off Estring and ring pessary at the end of the case. She was recovering in recovery in good condition.
== END 2019-01-11 17:00 | disposition home or self-care (01) ==
LOC: M SDC 13:29
PROVIDERS: ATTEND Obstetrics & Gynecology
DX: N30.21 Other chronic cystitis with hematuria (principal); I12.9 Hypertensive chronic kidney disease with stage 1 through stage 4 chronic kidney disease, or unspecified chronic kidney disease; E03.9 Hypothyroidism, unspecified; N18.2 Chronic kidney disease, stage 2 (mild); E78.00 Pure hypercholesterolemia, unspecified; M48.00 Spinal stenosis, site unspecified; M12.9 Arthropathy, unspecified; F41.9 Anxiety disorder, unspecified; F32.9 Major depressive disorder, single episode, unspecified; R06.83 Snoring; G47.30 Sleep apnea, unspecified; R32 Unspecified urinary incontinence; Z91.040 Latex allergy status; Z79.899 Other long term (current) drug therapy; Z90.710 Acquired absence of both cervix and uterus; Z87.891 Personal history of nicotine dependence; Z87.440 Personal history of urinary (tract) infections; Z96.651 Presence of right artificial knee joint
CPT/HCPCS: 52204; 88305; 93005; J0690; J2250; J2405; J3010

== ENCOUNTER 2019-04-01 14:37 | Inpatient (IN) | payer MEDICARE, OTHER ==
[~2019-04-01] VITALS: Ht 154.9 cm; Wt 79.7 kg
[~2019-04-01 14:37] MED LIST changes: -BOTULINUM INJ 100 UNITS (J0585) As Ordered ONE; -LIDOCAINE 1% MDV 20ML VIAL SQ PRN; -LR 1,000 ML IV ONE; +OMEP1CAP73; -OMEP20CA4; -SIMV20TA2; -SIMV20TA2 PO; +SIMV20TA22; +SIMV20TA22 PO; -ceFAZolin SOD 2 GM in IV 1 EA IV ONE
[2019-04-01 15:23] LABS: VENOUS BASE EXCESS 3.4 (-2.0-2.0); VENOUS HCO3 27.4 MEQ/L (23.0-27.0); VENOUS PARTIAL PRESSURE CO2 39.6 mmHg (38.0-50.0); VENOUS PARTIAL PRESSURE O2 25.9 mmHg (30.0-50.0); VENOUS PH 7.458 UNITS (7.330-7.430); VENOUS STANDARD HCO3 26.5 MEQ/L; VENOUS TOTAL CO2 28.6 MEQ/L (24.0-28.0)
[2019-04-01 15:28] LABS: BASO # 0.1 10^3/uL (0.0-0.2); BASO % 0.4 % (0.0-1.0); EOS # 0.1 10^3/uL (0.0-0.5); EOS % 0.3 % (0.0-3.0); HEMATOCRIT 37.6 % (36.0-47.0); HEMOGLOBIN 11.9 g/dl (12.0-15.5); LYMPH # 1.4 10^3/uL (1.5-5.0); LYMPH % 9.3 % (24.0-44.0); MEAN CORPUSCULAR HEMOGLOBIN 29.3 pg (27.0-33.0); MEAN CORPUSCULAR HGB CONC 31.6 g/dl (32.0-36.5); MEAN CORPUSCULAR VOLUME 92.6 fl (80.0-96.0); MONO # 1.2 10^3/uL (0.0-0.8); NEUTROPHILS # 11.9 10^3/uL (1.5-8.5); NEUTROPHILS % 81.5 % (36.0-66.0); PLATELET COUNT, AUTOMATED 254 10^3/uL (150-450); RED BLOOD COUNT 4.06 10^6/uL (4.00-5.40); WHITE BLOOD COUNT 14.7 10^3/uL (4.0-10.0)
[2019-04-01 15:59] LABS: ALBUMIN 3.1 GM/DL (3.2-5.2); ALT/SGPT 16 U/L (12-78); BILIRUBIN,DIRECT 0.2 MG/DL (0.0-0.2); BILIRUBIN,TOTAL 0.7 MG/DL (0.2-1.0); BLOOD UREA NITROGEN 22 MG/DL (7-18); CALCIUM LEVEL 9.6 MG/DL (8.8-10.2); CARBON DIOXIDE LEVEL 28 MEQ/L (21-32); CHLORIDE LEVEL 103 MEQ/L (98-107); CK-MB VALUE MASS < 1.0 NG/ML (<3.6); CPK CREATINE PHOSPHOKINASE 74 U/L (26-192); CREATININE FOR GFR 1.47 MG/DL (0.55-1.30); GLOMERULAR FILTRATION RATE 36.8 (>39); GLUCOSE, FASTING 85 MG/DL (70-100); MB/CK RELATIVE INDEX 1.35 (< OR =4); POTASSIUM SERUM 3.8 MEQ/L (3.5-5.1); SODIUM LEVEL 139 MEQ/L (136-145); TOTAL PROTEIN 6.7 GM/DL (6.4-8.2); TROPONIN I < 0.02 NG/ML (< 0.10)
[2019-04-01] MEDS ORDERED: PARoxetine 20 MG TAB PO ONE (16:00)
[2019-04-01] MEDS ORDERED: NS 1,000 ML IV ONE (16:15)
[2019-04-01] MEDS ORDERED: LORazepam 1 MG TAB PO STA (16:26)
[2019-04-01] MEDS ORDERED: cefTRIAXone SOD 1 GM in D5W MINI-BAG PLUS 50 ML IV ONE (16:30)
[2019-04-01] MEDS ORDERED: ACETAMINOPHEN TAB 650MG DOSE (2X325MG) PO ONE (16:45)
--- NOTE | 2019-04-01 17:21 | HPEPDOC ---
[facility] Medical History & Physical Date of Admission Apr 01, 2019 Date of Service: Apr 01, 2019 History and Physical CHIEF COMPLAINT: Confusion HISTORY OF PRESENT ILLNESS: 78 yo female brought in by family for altered mental status/confusion. Apparently she had stopped taking her Paxil at home. Patient does not have an explanation for why she stopped taking her medication, but she has done this in the past. She also notes left hip pain - non radiating, no modifying factors, possibly worsens with movement, but denies any falls. Denies chest pain, shortness of breath, abdominal pain, N/V/D, headaches or dizziness. PAST MEDICAL HISTORY: #HTN #HLD #hypothyroidism #recurrent UTI's # anxiety ALLERGIES: Please see below. REVIEW OF SYSTEMS: Negative except as per HPI. HOME MEDICATIONS: Please see below. PHYSICAL EXAM Vital Signs: See below General: NAD, lying comfortably in bed, anxious HEENT: NC/AT, EOMI, PERRL Lungs: CTA B/L Heart: +S1S2, RRR Abd: soft, NT, +BS, obese Ext: no edema, left hip tender to palpation Neuro: no gross focal deficits Psych: alert, oriented only to person and place LABORATORY DATA: See below. MICROBIOLOGY: Please see below. ASSESSMENT: 78 yo female brought in by family for confusion, noted to be non- compliant with anxiolytics, found to have UTI, with complaints of left hip pain. #left hip pain - imaging pending #UTI - UCx pending - ceftriaxone #confusion - resume home medications #HTN - continue home Rx #HLD - continue home Rx #hypothyroidism - continue home Rx #DVT prophylaxis . PLAN: 1. . Vital Signs Vital Signs Date Time Temp Pulse Resp B/P (MAP) Pulse Ox O2 Delivery O2 Flow Rate FiO2 04/01/19 16:51 101.0 04/01/19 14:47 69 18 168/92 (117) 95 Room Air Laboratory Data Labs 24H Laboratory Tests 2 04/01/19 15:15: Immature Granulocyte % (Auto) 0.5, Neutrophils (%) (Auto) 81.5H, Lymphocytes (%) (Auto) 9.3L, Monocytes (%) (Auto) 8.0H, Eosinophils (%) (Auto) 0.3, Basophils (%) (Auto) 0.4, Neutrophils # (Auto) 11.9H, Lymphocytes # (Auto) 1.4L, Monocytes # (Auto) 1.2H, Eosinophils # (Auto) 0.1, Basophils # (Auto) 0.1, Nucleated Red Blood Cells % (auto) 0.0, Blood Gas Bicarbonate Standard 26.5, Venous Blood pH 7.458H, Venous Blood Partial Pressure CO2 39.6, Venous Blood Partial Pressure O2 25.9L, Venous Blood Total Carbon Dioxide 28.6H, Venous Blood HCO3 27.4H, Venous Blood Oxygen Saturation 52.0L, Venous Blood Base Excess 3.4H, Anion Gap 8, Glomerular Filtration Rate 36.8L, Calcium Level 9.6, Total Bilirubin 0.7, Direct Bilirubin 0.2, Aspartate Amino Transf (AST/SGOT) 13, Alanine Aminotransferase (ALT/SGPT) 16, Alkaline Phosphatase 88, Ammonia < 10, Total Creatine Kinase 74, Creatine Kinase MB < 1.0, Creatine Kinase MB Relative Index 1.35, Troponin I < 0.02, Total Protein 6.7, Albumin 3.1L, Albumin/Globulin Ratio 0.86L, Thyroid Stimulating Hormone (TSH) 1.820 04/01/19 15:16: Lactic Acid Level 2.4*H 04/01/19 15:34: Urine Color YELLOW, Urine Appearance HAZY, Urine pH 9.0, Urine Specific [place] 1.014, Urine Protein 2+H, Urine Glucose (UA) NEGATIVE, Urine Ketones NEGATIVE, Urine Blood NEGATIVE, Urine Nitrite NEGATIVE, Urine Bilirubin NEGATIVE, Urine Urobilinogen 0.2, Urine Leukocyte Esterase NEGATIVE, Urine WBC (Auto) 14H, Urine RBC (Auto) 18H, Urine Hyaline Casts (Auto) 0, Urine Bacteria (Auto) 1+H, Urine Squamous Epithelial Cells 2, Urine Amorphous Sediment SMALLH, Urine Sperm (Auto) 04/01/19 15:38: Bedside Glucose (Misc Panel) 83 CBC/BMP Laboratory Tests 04/01/19 15:15 Microbiology Microbiology 04/01/19 Blood Culture, Received Pending 04/01/19 Urine Culture, Received Pending 04/01/19 Blood Culture, Received Pending Home Medications Scheduled Ascorbic Acid (Vitamin C) 500 Mg Capsule, 1,000 MG PO DAILY Biotin (Biotin) 5 Mg Tablet, 5 MG PO DAILY Calcium Carbonate (Calcium) 500 Mg Tablet, 500 MG PO DAILY Cholecalciferol (Vitamin D3) (Vitamin D3) 1,000 Unit Tab, 1,000 UNIT PO QHS Conjugated Estrogens (Premarin) 30 Gm Cream.appl, 30 GM TOP QHS Cranberry Fruit Extract (Cranberry) 425 Mg Cap, 1,000 MG PO QHS Cyanocobalamin (Vitamin B-12) (Vitamin B12) 2,500 Mcg Tablet, 2,500 MCG PO DAILY D-Mannose (D-Mannose) 1 Gm Powder, 500 MG PO DAILY Folic Acid (Folic Acid) 400 Mcg Tab, 400 MCG PO QHS Gabapentin (Gabapentin) 600 Mg Tab, 600 MG PO DAILY Hydrochlorothiazide (Hydrochlorothiazide) 25 Mg Tab, 25 MG PO DAILY Lactobacillus Acidophilus (Probiotic) 1 Cap Cap, 1 CAP PO QHS Levothyroxine Sodium (Levoxyl) 88 Mcg Tab, 100 MCG PO DAILY Lysine (l-Lysine) 500 Mg Tablet, 1,000 MG PO DAILY Magnesium Oxide (Magnesium Oxide) 400 Mg Tab, 125 MG PO QHS Metoprolol Tartrate (Lopressor) 50 Mg Tablet, 25 MG PO DAILY Mirabegron (Myrbetriq) 25 Mg Tab.er.24h, 1 TAB PO DAILY Nitrofurantoin Monohyd/M-Cryst (Macrobid 100 mg Capsule) 100 Mg Capsule, 100 MG PO BID [place]-3 Fatty Acids/Fish Oil (Fish Oil Conc 1,000 mg Softgel) 1 Each Capsule, 1 CAP PO DAILY Paroxetine HCl (Paroxetine HCl) 20 Mg Tab, 25 MG PO DAILY Phenazopyridine HCl (Azo Urinary Pain Relief) 95 Mg Tablet, 95 MG PO DAILY Resveratrol (Resveratrol) 250 Mg Capsule, 250 MG PO DAILY Salmeterol/Fluticasone (Advair 250-50 Diskus) 14 Puff/Inhaler Aerp, 1 PUFF INH BID Simvastatin (Simvastatin) 20 Mg Tab, 20 MG PO QHS Turmeric/Turmeric Root Extract (Turmeric 450-50 mg Capsule) 500 Mg Cap, 1,000 MG PO QHS Ubidecarenone (Co Q-10) 100 Mg Cap, 200 MG PO QHS Vit A/Vit C/Vit E/Zinc/Copper (Preservision Areds Softgel) 1 Each Capsule, 1 CAP PO BID Vitamin B Complex Vit C No.3 (B Complex with Vitamin C) 1 Each Capsule, 1 CAP PO DAILY Zinc Gluconate (Zinc) 50 Mg Tablet, 30 MG PO DAILY Miscellaneous Medications Vitamin E Acid Succinate (Vitamin E) 400 Unit Tablet, 450 UNIT PO Allergies Coded Allergies: latex (Verified Allergy, Unknown, 08/23/18) A-FIB/CHADSVASC A-FIB History Current/History of A-Fib/PAF?: No MAKEDA ELDER MD Apr 01, 2019 17:21
[2019-04-01] MEDS: NS 1,000 ML IV SCH ×2 (18:00→22:13)
[2019-04-01] MEDS ORDERED: LEVO100T54 PO (18:08)
[2019-04-01] MEDS ORDERED: URIB118C PO (18:08)
[2019-04-01] MEDS ORDERED: CVS500CA5 PO (18:08)
[2019-04-01] MEDS ORDERED: METO1TAB87 PO (18:08)
[2019-04-01] MEDS ORDERED: PENT10CA PO (18:08)
[2019-04-01] MEDS ORDERED: D32000TA2 PO (18:08)
[2019-04-01] MEDS ORDERED: ESTR1MIS PV (18:08)
[2019-04-01] MEDS ORDERED: PARO25TA PO (18:08)
--- NOTE | 2019-04-01 19:36 | ECGEPIP ---
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
[2019-04-01 21:35] VITALS: BP 124/68
[2019-04-01] MEDS: GABAPENTIN 300 MG CAP PO SCH (22:11)
[2019-04-01] MEDS: SIMVASTATIN 20 MG TAB PO SCH (22:11)
[2019-04-01] MEDS: VITAMIN D 1,000 INTERNATIONAL UNITS TABLET PO SCH (22:11)
[2019-04-01] MEDS: OCUVITE 1 TAB PO SCH (22:12)
[2019-04-01] MEDS: METOPROLOL TART 12.5 MG PER 1/2 TAB PO SCH (22:12)
[2019-04-01] MEDS: ADVAIR HFA 115/21MCG INHALER INH SCH (22:32)
[2019-04-02] MEDS: PENTOSAN POLYSULFATE SODIUM 100 MG CAP (ELMIRON) PO SCH ×4 (00:27→21:34)
[2019-04-02 06:00] VITALS: BP 124/55
[2019-04-02] MEDS: NS 1,000 ML IV SCH (06:00)
[2019-04-02] MEDS: LEVOTHYROXINE 100MCG TABLET (0.1MG) PO SCH (06:00)
[2019-04-02 06:13] LABS: HEMATOCRIT 30.2 % (36.0-47.0); MEAN CORPUSCULAR HEMOGLOBIN 30.2 pg (27.0-33.0); MEAN CORPUSCULAR HGB CONC 32.5 g/dl (32.0-36.5); MEAN CORPUSCULAR VOLUME 92.9 fl (80.0-96.0); PLATELET COUNT, AUTOMATED 212 10^3/uL (150-450); RED BLOOD COUNT 3.25 10^6/uL (4.00-5.40); WHITE BLOOD COUNT 10.7 10^3/uL (4.0-10.0)
[2019-04-02 06:16] LABS: HEMOGLOBIN 9.8 g/dl (12.0-15.5)
[2019-04-02 06:33] LABS: CALCIUM LEVEL 8.5 MG/DL (8.8-10.2); CREATININE FOR GFR 1.34 MG/DL (0.55-1.30); GLOMERULAR FILTRATION RATE 40.9 (>39); POTASSIUM SERUM 3.3 MEQ/L (3.5-5.1)
--- NOTE | 2019-04-02 07:33 | REP ---
AP PORTABLE CHEST: 04/01/2019. CLINICAL HISTORY: Altered mental status. COMPARISON: 01/20/2016. FINDINGS: Lungs hypoinflated. Some crowded markings in the bases. Some underlying chronic interstitial changes but without infiltrate or effusion. Heart is magnified by portable technique but still enlarged with left ventricular configuration. The aorta is tortuous and unchanged. Airway intact. There is a compression plate and screws from a fusion at C5-6. No free air under the diaphragm. IMPRESSION: 1. Hypoinflated chest with some crowded markings in the bases but no dense consolidation or effusion. Some underlying chronic interstitial changes. 2. Cardiomegaly with left atrial and ventricular enlargement without pulmonary edema. 3. Somewhat tortuous aorta unchanged. Electronically Signed by True Reddy MD 04/02/2019 09:15 A
--- NOTE | 2019-04-02 07:37 | REP ---
CT BRAIN WITHOUT CONTRAST: 04/01/2019. COMPARISON: 07/20/2007 CLINICAL HISTORY: Confusion, CVA evaluation. TECHNIQUE: Axial soft-tissue and bone window settings along with coronal soft tissue reconstructions provided. FINDINGS: Lateral ventricles are midline symmetric and dilated in proportion to the moderately severe cerebral atrophy. That atrophy is greater than expected and the atrophy is progressive since 2007. Where the bifrontal diameter measures 43.6 mm today, it was 37.6 mm 12 years ago. Third and fourth ventricles are also dilated in proportion. Basal ganglia are symmetric. Lima/white junction differentiation well maintained. There is heterogeneous low attenuation white matter change in the bilateral hemispheres, suggesting chronic small vessel ischemic disease of aging. Cortical stripe shows diffuse atrophy. There is no vascular territory infarct, intracranial hemorrhage, mass or mass effect. No extra-axial fluid collection. Brainstem intact. Cerebellum shows diffuse atrophy without mass. No posterior fossa hemorrhage. Basal cisterns are intact. Mastoids are intact. The sinuses show mucosal thickening throughout. No air-fluid levels. Skull base and calvarium show no fracture or focal lesion. IMPRESSION: 1. Progressive atrophy greater than expected for age with ventriculomegaly and moderately severe atrophy noted. No midline shift. No intracranial or intraparenchymal hemorrhage. No mass or extra-axial fluid collection. 2. Chronic small vessel white matter ischemic changes of aging. Cerebellar atrophy. 3. Diffuse sinus mucosal thickening without opacification or destructive bone lesion. The mastoids, skull base and calvarium otherwise unremarkable. Posterior fossa grossly intact and proportionate findings to cerebral hemispheres. Electronically Signed by True Reddy MD 04/02/2019 09:28 A
--- NOTE | 2019-04-02 08:01 | REP ---
LEFT KNEE AP LATERAL: 04/01/2019. Clinical history: Left knee pain. Findings: Two-view show marked narrowing of the patellofemoral joint with prominent osteophytes. No joint effusion. The medial lateral compartments show spurs in the tibial spines and peripheral joint lines. No definite loose body or fracture. Slight narrowing of the medial compartment compared to the lateral. Impression: 1. Advanced patellofemoral osteoarthritis without joint effusion, fracture, loose body. 2. Small marginal osteophytes with slight narrowing medial compartment but not the lateral. Electronically Signed by True Reddy MD 04/02/2019 09:34 A
--- NOTE | 2019-04-02 08:02 | REP ---
AP PELVIS WITH LEFT HIP: 04/01/2019. Clinical history: Left hip pain. AP pelvis: Pelvic ring is intact. Pubic rami and symphysis pubis unremarkable. A pessary is seen in its position indicates pelvic floor muscular relaxation. SI joints symmetric. Extensive degenerative disc and facet changes lower lumbar spine. Iliac bones were unremarkable. Pubic rami, symphysis were intact and show some degenerative changes. Left hip AP and frog-leg views show some sclerosis about the acetabular roof which is mild. There is a small rim osteophyte femoral head on the frog-leg view. There is no AVN, fracture or other focal bone lesion. Impression: 1. Minimal degenerative changes of the hips with rim osteophytes femoral head on the left on frog-leg view. No destructive lesion. 2. No AVN or focal bone abnormality in the hip or acetabulum. 3. Pubic rami, symphysis pubis, SI joints and iliac bones intact. Electronically Signed by True Reddy MD 04/02/2019 09:34 A
[2019-04-02] MEDS: METOPROLOL TART 12.5 MG PER 1/2 TAB PO SCH ×2 (08:33→21:34)
[2019-04-02] MEDS: GABAPENTIN 300 MG CAP PO SCH (08:34)
[2019-04-02] MEDS: CYANOCOBALAMIN 500 MCG TAB PO SCH (08:34)
[2019-04-02] MEDS: hydroCHLOROthiazide 25 MG TAB PO SCH (08:34)
[2019-04-02] MEDS: OCUVITE 1 TAB PO SCH ×2 (08:34→21:34)
[2019-04-02] MEDS: OYSTER SHELL CALCIUM 500 MG TAB PO SCH (08:34)
[2019-04-02] MEDS: PARoxetine 25 MG CR TAB (PAXIL CR) PO SCH (08:34)
[2019-04-02] MEDS: ASCORBIC ACID 500 MG TAB PO SCH (08:34)
[2019-04-02] MEDS: ADVAIR HFA 115/21MCG INHALER INH SCH ×2 (08:36→19:49)
--- NOTE | 2019-04-02 12:49 | IPNPDOC ---
Date Seen The patient was seen on 04/02/19. Progress Note SUBJECTIVE: Patient laying in bed has no complaints. Worse with PT early this morning states that she had no problem. Endorses she was slightly weak when she was ambulating the size that she tolerated well. She denies any chest pain, shortness of breath, nausea, vomiting, abdominal pain, fevers or chills. She tolerated her meals with no problems. OBJECTIVE PHYSICAL EXAMINATION: VITAL SIGNS: Please see below. GENERAL: Pleasant 78-year-old female laying in bed awake alert oriented speaking in complete sentences no acute distress] HEENT: Atraumatic normocephalic pupils equal round and reactive , Moist mucous membranes no JVD CARDIOVASCULAR: S1 S2 regular, 2/6 systolic murmur on the left fifth intercostal space no radiation to the carotids at the apex. No audible rubs or gallops. RESPIRATORY: Clear to auscultation bilaterally. ABDOMINAL: Bowel sounds present abdomen soft and nontender EXTREMITIES: No clubbing cyanosis or edema NEUROLOGICAL: no gross focal deficits appreciated. PSYCHOLOGICAL: Appropriate but still appears slightly confused. LABORATORY DATA, MICROBIOLOGY: Please see below. IMAGING STUDIES: 04/01/2019 Chest x-ray 1. Hypoinflated chest with some crowded markings in the bases but no dense consolidation or effusion. Some underlying chronic interstitial changes. 2. Cardiomegaly with left atrial and ventricular enlargement without pulmonary edema. 3. Somewhat tortuous aorta unchanged. Head CT 1. Progressive atrophy greater than expected for age with ventriculomegaly and moderately severe atrophy noted. No midline shift. No intracranial or intraparenchymal hemorrhage. No mass or extra-axial fluid collection. 2. Chronic small vessel white matter ischemic changes of aging. Cerebellar atrophy. 3. Diffuse sinus mucosal thickening without opacification or destructive bone lesion. The mastoids, skull base and calvarium otherwise unremarkable. Posterior fossa grossly intact and proportionate findings to cerebral hemispheres. Knee x-ray 1. Advanced patellofemoral osteoarthritis without joint effusion, fracture, loose body. 2. Small marginal osteophytes with slight narrowing medial compartment but not the lateral. Hip/Pelvis x-ray 1. Minimal degenerative changes of the hips with rim osteophytes femoral head on the left on frog-leg view. No destructive lesion. 2. No AVN or focal bone abnormality in the hip or acetabulum. 3. Pubic rami, symphysis pubis, SI joints and iliac bones intact. ASSESSMENT AND PLAN: This is a 78-year-old female with confusion and left hip pain. PROBLEMS: 1. Left hip osteoarthritis . Pain resolved. Imaging consistent with degenerative changes of the left hip. PT on board 2. Abnormal UA. Ceftriaxone for 3 days 3. Confusion. Possible secondary to Alzheimer's dementia unlikely normal pressure hydrocephalus. CT head negative for any acute intracranial processes but does show Progressive atrophy greater than expected for age with ventriculomegaly and moderately severe atrophy noted. Will hold gabapentin and continue to monitor mentation. 4. Hypertension. c/w hydrochlorothiazide and metoprolol 5. Hyperlipidemia. c/w Zocor 6. Hypothyroidism. c/w Synthroid 7. Normocytic anemia. Stable, order iron, ferritin and TIBC. Will monitor 8. Depression: c/w paxil DVT prophylaxis: TEDs and sequentials DISPOSITION: 24-48 hours pending completion of antibiotics and PT clearance VS, I&O, 24H, Fishbone Vital Signs/I&O Vital Signs Date Time Temp Pulse Resp B/P (MAP) Pulse Ox O2 Delivery O2 Flow Rate FiO2 04/02/19 08:33 73 118/57 04/02/19 06:00 99.2 18 94 Room Air I&O- Last 24 Hours up to 6 AM 04/02/19 05:59 Intake Total 1230 ml Output Total 250 ml Balance 980 ml Laboratory Data 24H LABS Laboratory Tests 2 04/01/19 15:15: Immature Granulocyte % (Auto) 0.5, Neutrophils (%) (Auto) 81.5H, Lymphocytes (%) (Auto) 9.3L, Monocytes (%) (Auto) 8.0H, Eosinophils (%) (Auto) 0.3, Basophils (%) (Auto) 0.4, Neutrophils # (Auto) 11.9H, Lymphocytes # (Auto) 1.4L, Monocytes # (Auto) 1.2H, Eosinophils # (Auto) 0.1, Basophils # (Auto) 0.1, Nucleated Red Blood Cells % (auto) 0.0, Blood Gas Bicarbonate Standard 26.5, Venous Blood pH 7.458H, Venous Blood Partial Pressure CO2 39.6, Venous Blood Partial Pressure O2 25.9L, Venous Blood Total Carbon Dioxide 28.6H, Venous Blood HCO3 27.4H, Venous Blood Oxygen Saturation 52.0L, Venous Blood Base Excess 3.4H, Anion Gap 8, Glomerular Filtration Rate 36.8L, Calcium Level 9.6, Total Bilirubin 0.7, Direct Bilirubin 0.2, Aspartate Amino Transf (AST/SGOT) 13, Alanine Aminotransferase (ALT/SGPT) 16, Alkaline Phosphatase 88, Ammonia < 10, Total Creatine Kinase 74, Creatine Kinase MB < 1.0, Creatine Kinase MB Relative Index 1.35, Troponin I < 0.02, Total Protein 6.7, Albumin 3.1L, Albumin/Globulin Ratio 0.86L, Thyroid Stimulating Hormone (TSH) 1.820 04/01/19 15:16: Lactic Acid Level 2.4*H 04/01/19 15:34: Urine Color YELLOW, Urine Appearance HAZY, Urine pH 9.0, Urine Specific [place] 1.014, Urine Protein 2+H, Urine Glucose (UA) NEGATIVE, Urine Ketones NEGATIVE, Urine Blood NEGATIVE, Urine Nitrite NEGATIVE, Urine Bilirubin NEGATIVE, Urine Urobilinogen 0.2, Urine Leukocyte Esterase NEGATIVE, Urine WBC (Auto) 14H, Urine RBC (Auto) 18H, Urine Hyaline Casts (Auto) 0, Urine Bacteria (Auto) 1+H, Urine Squamous Epithelial Cells 2, Urine Amorphous Sediment SMALLH, Urine Sperm (Auto) 04/01/19 15:38: Bedside Glucose (Misc Panel) 83 04/01/19 19:51: Lactic Acid Followup at 4 Hours 1.9 04/02/19 05:51: Nucleated Red Blood Cells % (auto) 0.0, Anion Gap 6L, Glomerular Filtration Rate 40.9, Calcium Level 8.5L CBC/BMP Laboratory Tests 04/01/19 15:15 04/02/19 05:51 Microbiology Microbiology 04/01/19 Blood Culture, Received Pending 04/01/19 Urine Culture, Received Pending 04/01/19 Blood Culture, Received Pending RORY HERNANDEZ DO Apr 02, 2019 12:49
[2019-04-02] MEDS ORDERED: CEPACOL LOZENGE PO PRN (13:30)
[2019-04-02 14:00] VITALS: BP 120/65
[2019-04-02] MEDS ORDERED: cefTRIAXone SOD 1 GM in D5W MINI-BAG PLUS 50 ML IV SCH (16:00)
[2019-04-02] MEDS ORDERED: POTASSIUM CHLORIDE 10 MEQ SR TABLET PO ONE (18:00)
[2019-04-02] MEDS: VITAMIN D 1,000 INTERNATIONAL UNITS TABLET PO SCH (21:33)
[2019-04-02] MEDS: SIMVASTATIN 20 MG TAB PO SCH (21:34)
[2019-04-02 22:00] VITALS: BP 114/60
[2019-04-03 06:00] VITALS: BP 110/62
[2019-04-03] MEDS: LEVOTHYROXINE 100MCG TABLET (0.1MG) PO SCH (06:18)
[2019-04-03 06:48] LABS: HEMATOCRIT 32.5 % (36.0-47.0); MEAN CORPUSCULAR HEMOGLOBIN 29.2 pg (27.0-33.0); MEAN CORPUSCULAR HGB CONC 30.8 g/dl (32.0-36.5); PLATELET COUNT, AUTOMATED 210 10^3/uL (150-450); RED BLOOD COUNT 3.42 10^6/uL (4.00-5.40); WHITE BLOOD COUNT 8.7 10^3/uL (4.0-10.0)
[2019-04-03 07:14] LABS: CREATININE FOR GFR 1.42 MG/DL (0.55-1.30); GLOMERULAR FILTRATION RATE 38.3 (>39); MAGNESIUM LEVEL 1.5 MG/DL (1.8-2.4); POTASSIUM SERUM 3.8 MEQ/L (3.5-5.1)
[2019-04-03 07:16] LABS: PERCENT SATURATION 11.2 % (13.2-45.0)
[2019-04-03] MEDS: ADVAIR HFA 115/21MCG INHALER INH SCH (07:41)
[2019-04-03 09:45] VITALS: BP 123/56
[2019-04-03] MEDS: OYSTER SHELL CALCIUM 500 MG TAB PO SCH (09:45)
[2019-04-03] MEDS: PARoxetine 25 MG CR TAB (PAXIL CR) PO SCH (09:45)
[2019-04-03] MEDS: CYANOCOBALAMIN 500 MCG TAB PO SCH (09:45)
[2019-04-03] MEDS: PENTOSAN POLYSULFATE SODIUM 100 MG CAP (ELMIRON) PO SCH (09:45)
[2019-04-03] MEDS: OCUVITE 1 TAB PO SCH (09:45)
[2019-04-03] MEDS: ASCORBIC ACID 500 MG TAB PO SCH (09:45)
[2019-04-03] MEDS: hydroCHLOROthiazide 25 MG TAB PO SCH (09:46)
[2019-04-03 09:47] VITALS: BP 123/56
[2019-04-03] MEDS: METOPROLOL TART 12.5 MG PER 1/2 TAB PO SCH (09:47)
--- NOTE | 2019-04-03 11:24 | DS.PDOC ---
Discharge Summary General Date of Admission Apr 01, 2019 at 17:11 Date of Discharge 04/03/2019 Discharge Summary DISCHARGE DIAGNOSIS: Confusion Possible secondary to normal pressure hydrocephalus versus Alzheimer's dementia SECONDARY DIAGNOSIS: 1. Left hip osteoarthritis 2. Abnormal UA 3. Hypertension 4. Hyperlipidemia 5. Hypothyroidism 6. Normocytic anemia 7. Depression PROCEDURES PERFORMED DURING STAY: None CONSULTANTS None HOSPITAL COURSE: This is a 78-year-old female who was admitted to [facility] with the initial complaint of confusion and left hip pain. She had imaging of her left hip which showed degenerative changes consistent with left hip osteoarthritis. She worked with PT and was cleared on the day of discharge to go home with outpatient PT. For her confusion she had a head CT which shows progressive atrophy greater than expected age with ventriculomegaly and moderately severe atrophy noted. This was discussed with the daughter about possible outpatient neurosurgery for central shunting which she states that she did not want. She is agreeable to follow-up with Neurology outpatient if candidate for medical management, if possible. Because of the initial confusion and abnormal UY she was given antibiotics for 3 days which she tolerated well. On the day of discharge she was stable to go home with daughter and all questions were answered. DISCHARGE MEDICATIONS: Please see below. ALLERGIES: Please see below. LABORATORY DATA, MICROBIOLOGY: Please see below. IMAGING STUDIES: 04/01/2019 Chest x-ray 1. Hypoinflated chest with some crowded markings in the bases but no dense consolidation or effusion. Some underlying chronic interstitial changes. 2. Cardiomegaly with left atrial and ventricular enlargement without pulmonary edema. 3. Somewhat tortuous aorta unchanged. Head CT 1. Progressive atrophy greater than expected for age with ventriculomegaly and moderately severe atrophy noted. No midline shift. No intracranial or intraparenchymal hemorrhage. No mass or extra-axial fluid collection. 2. Chronic small vessel white matter ischemic changes of aging. Cerebellar atrophy. 3. Diffuse sinus mucosal thickening without opacification or destructive bone lesion. The mastoids, skull base and calvarium otherwise unremarkable. Posterior fossa grossly intact and proportionate findings to cerebral hemispheres. Knee x-ray 1. Advanced patellofemoral osteoarthritis without joint effusion, fracture, loose body. 2. Small marginal osteophytes with slight narrowing medial compartment but not the lateral. Hip/Pelvis x-ray 1. Minimal degenerative changes of the hips with rim osteophytes femoral head on the left on frog-leg view. No destructive lesion. 2. No AVN or focal bone abnormality in the hip or acetabulum. 3. Pubic rami, symphysis pubis, SI joints and iliac bones intact. DISPOSITION: Home with daughter DISCHARGE CONDITION: Stable PROGNOSIS: Fair FOLLOW UP: 1. Follow-up with primary care provider in 7-10 days 2. Follow-up with neurology in 10-14 days. 3. If symptoms return or worsen please call your PCP or return to the ER. ACTIVITY: As prior to admission and PT outpatient DIET: As prior to admission TIME SPENT ON DISCHARGE: 50 minutes Vital Signs/I&Os Vital Signs Date Time Temp Pulse Resp B/P (MAP) Pulse Ox O2 Delivery O2 Flow Rate FiO2 04/03/19 09:47 64 123/56 04/03/19 06:00 99.5 16 96 Room Air I&O- Last 24 Hours up to 6 AM 04/03/19 06:00 Intake Total 2915 ml Output Total 0 ml Balance 2915 ml Laboratory Data Labs 24H Laboratory Tests 2 04/03/19 06:32: Nucleated Red Blood Cells % (auto) 0.0, Anion Gap 3L, Glomerular Filtration Rate 38.3L, Calcium Level 9.0, Magnesium Level 1.5L, Iron Level 19L, Total Iron Binding Capacity 169L, Transferrin % Saturation 11.2L, Ferritin 252 CBC/BMP Laboratory Tests 04/03/19 06:32 Microbiology Microbiology 04/01/19 Blood Culture - Preliminary, Resulted No growth after 24 hours . All specim... 04/01/19 Urine Culture - Final, Complete Escherichia Coli 04/01/19 Blood Culture - Preliminary, Resulted No growth after 24 hours . All specim... Discharge Medications Scheduled Ascorbic Acid (Vitamin C) 500 Mg Capsule, 1,000 MG PO DAILY, (Reported) Calcium Carbonate (Calcium) 500 Mg Tablet, 500 MG PO DAILY, (Reported) Cholecalciferol (Vitamin D3) (Vitamin D3) 2,000 Unit Tablet, 2,000 UNIT PO QHS, (Reported) Cranberry Fruit Extract (Cranberry) 500 Mg Capsule, 1,000 MG PO DAILY, (Reported) Cyanocobalamin (Vitamin B-12) (Vitamin B12) 2,500 Mcg Tablet, 2,500 MCG PO DAILY, (Reported) D-Mannose (D-Mannose) 1 Gm Powder, 500 MG PO DAILY, (Reported) Estradiol (Estring) 2 Mg Vag.ring, 1 EA PV Q3M, (Reported) HAS A DR APPT ON TUESDAY TO REPLACE RING Folic Acid (Folic Acid) 400 Mcg Tab, 400 MCG PO QHS, (Reported) Gabapentin (Gabapentin) 600 Mg Tab, 600 MG PO BID, (Reported) Hydrochlorothiazide (Hydrochlorothiazide) 25 Mg Tab, 25 MG PO DAILY, (Reported) Lactobacillus Acidophilus (Probiotic) 1 Cap Cap, 1 CAP PO QHS, (Reported) Levothyroxine Sodium (Levoxyl) 100 Mcg Tablet, 100 MCG PO DAILY, (Reported) Lysine (l-Lysine) 500 Mg Tablet, 1,000 MG PO DAILY, (Reported) Magnesium Oxide (Magnesium Oxide) 400 Mg Tab, 400 MG PO QHS, (Reported) Meth/Meblue/Sod Phos/Psal/Hyos (Uribel Capsule) 1 Each Capsule, 1 CAP PO BID, (Reported) Metoprolol Tartrate (Metoprolol Tartrate) 25 Mg Tablet, 12.5 MG PO BID, (Reported) Mirabegron (Myrbetriq) 25 Mg Tab.er.24h, 25 MG PO DAILY, (Reported) Hume-3 Fatty Acids/Fish Oil (Fish Oil Conc 1,000 mg Softgel) 1 Each Capsule, 1 CAP PO DAILY, (Reported) Paroxetine HCl (Paroxetine ER) 25 Mg Tab.er.24h, 25 MG PO DAILY, (Reported) Pentosan Polysulfate Sodium (Elmiron) 100 Mg Capsule, 100 MG PO TID, (Reported) Salmeterol/Fluticasone (Advair 250-50 Diskus) 14 Puff/Inhaler Aerp, 1 PUFF INH BID, (Reported) Simvastatin (Simvastatin) 20 Mg Tab, 20 MG PO QHS, (Reported) Turmeric/Turmeric Root Extract (Turmeric 450-50 mg Capsule) 500 Mg Cap, 1,000 MG PO QHS, (Reported) Ubidecarenone (Co Q-10) 100 Mg Cap, 200 MG PO QHS, (Reported) Vit A/Vit C/Vit E/Zinc/Copper (Preservision Areds Softgel) 1 Each Capsule, 1 CAP PO BID, (Reported) Vitamin B Complex Vit C No.3 (B Complex with Vitamin C) 1 Each Capsule, 1 CAP PO DAILY, (Reported) Zinc Gluconate (Zinc) 50 Mg Tablet, 50 MG PO DAILY, (Reported) Miscellaneous Medications Vitamin E Acid Succinate (Vitamin E) 400 Unit Tablet, 450 UNIT PO, (Reported) Allergies Coded Allergies: latex (Verified Allergy, Unknown, 08/23/18) RORY HERNANDEZ DO Apr 03, 2019 11:24
[2019-04-03] MEDS ORDERED: cefTRIAXone SOD 1 GM in D5W MINI-BAG PLUS 50 ML IV ONE (12:00)
== END 2019-04-03 12:55 | disposition home or self-care (01) | DRG 57 ==
LOC: EDBD 14:37 → M ED 14:37 → M ED INP 17:11 → ENRESERV 20:10 → M MSPAV 21:20
PROVIDERS: ADMIT Internal Medicine; ATTEND Internal Medicine
DX: G91.2 (Idiopathic) normal pressure hydrocephalus (principal); N39.0 Urinary tract infection, site not specified; F02.81 Dementia in other diseases classified elsewhere, unspecified severity, with behavioral disturbance; M16.12 Unilateral primary osteoarthritis, left hip; R41.82 Altered mental status, unspecified; G30.9 Alzheimer's disease, unspecified; I10 Essential (primary) hypertension; E78.5 Hyperlipidemia, unspecified; F32.9 Major depressive disorder, single episode, unspecified; D64.9 Anemia, unspecified; Z79.899 Other long term (current) drug therapy; Z91.040 Latex allergy status; E03.9 Hypothyroidism, unspecified; F41.9 Anxiety disorder, unspecified; Z91.14 Patient's other noncompliance with medication regimen

== ENCOUNTER 2019-09-29 20:41 | Emergency (ER) | payer MEDICARE, OTHER ==
[~2019-09-29 20:41] MED LIST changes: +CVS500CA5 PO; +D32000TA2 PO; +ESTR1MIS PV; +LEVO100T54 PO; +METO1TAB87 PO; +PARO25TA PO; +PENT10CA PO; +URIB118C PO
[2019-09-29] MEDS ORDERED: KETOROLAC TROMETHAMINE 10 MG TAB ONE (22:09)
== END 2019-09-30 21:10 | disposition home or self-care (01) ==
LOC: M ED 20:41
DX: S60.411A Abrasion of left index finger, initial encounter (principal); S63.251A Unspecified dislocation of left index finger, initial encounter; W01.0XXA Fall on same level from slipping, tripping and stumbling without subsequent striking against object, initial encounter; Y92.480 Sidewalk as the place of occurrence of the external cause; J44.9 Chronic obstructive pulmonary disease, unspecified; C85.90 Non-Hodgkin lymphoma, unspecified, unspecified site; Z79.899 Other long term (current) drug therapy; Z79.890 Hormone replacement therapy; Z91.040 Latex allergy status

== ENCOUNTER → 2019-10-18 | Outpatient (REF) | payer MEDICARE, OTHER ==
[2019-12-05 07:04] LABS: FERRITIN 78 NG/ML (8-252); FOLATE > 24.0 NG/ML; IRON (FE) 50 UG/DL (50-170); PERCENT SATURATION 17.3 % (13.2-45.0); TOTAL IRON BINDING CAPACITY 289 UG/DL (250-450); VITAMIN B12 LEVEL 1631 PG/ML
== END ==
LOC: M LAB REF 07:57
PROVIDERS: ATTEND Family Medicine
DX: D64.9 Anemia, unspecified (principal)

== ENCOUNTER → 2019-10-26 | Outpatient (CLI) | payer MEDICARE, OTHER ==
[2019-10-26 17:26] LABS: BASO # 0.1 10^3/uL (0.0-0.2); EOS # 0.2 10^3/uL (0.0-0.5); EOS % 2.8 % (0.0-3.0); HEMATOCRIT 34.8 % (36.0-47.0); HEMOGLOBIN 10.7 g/dl (12.0-15.5); LYMPH # 1.6 10^3/uL (1.5-5.0); LYMPH % 23.9 % (24.0-44.0); MEAN CORPUSCULAR HEMOGLOBIN 29.8 pg (27.0-33.0); MEAN CORPUSCULAR HGB CONC 30.7 g/dl (32.0-36.5); MEAN CORPUSCULAR VOLUME 96.9 fl (80.0-96.0); MONO # 0.5 10^3/uL (0.0-0.8); MONO % 7.1 % (0.0-5.0); NEUTROPHILS # 4.5 10^3/uL (1.5-8.5); NEUTROPHILS % 64.9 % (36.0-66.0); PLATELET COUNT, AUTOMATED 272 10^3/uL (150-450); RED BLOOD COUNT 3.59 10^6/uL (4.00-5.40); WHITE BLOOD COUNT 6.9 10^3/uL (4.0-10.0)
[2019-10-26 18:22] LABS: ALBUMIN 3.3 GM/DL (3.2-5.2); BILIRUBIN,TOTAL 0.4 MG/DL (0.2-1.0); CALCIUM LEVEL 9.5 MG/DL (8.8-10.2); CREATININE FOR GFR 1.63 MG/DL (0.55-1.30); FREE T4 1.05 NG/DL (0.76-1.46); GLOMERULAR FILTRATION RATE 32.6 (>39); POTASSIUM SERUM 4.3 MEQ/L (3.5-5.1); THYROID STIMULATING HORMONE 0.484 uIU/ML (0.358-3.740); TOTAL PROTEIN 6.2 GM/DL (6.4-8.2)
== END ==
LOC: M WUC 14:24
PROVIDERS: ATTEND Nurse Practitioner Family
DX: R59.9 Enlarged lymph nodes, unspecified (principal); Z79.899 Other long term (current) drug therapy

== ENCOUNTER → 2019-10-31 | Outpatient (CLI) | payer MEDICARE, OTHER ==
--- NOTE | 2019-11-01 12:10 | REPMRS ---
Patient History The patient states she has not had a clinical breast exam in over a year. Family history of breast cancer at age 50 or over in maternal aunt, colorectal cancer at age 50 or over in mother, endometrial cancer at age 50 or over in sister. Taking estrogen for 2 years 1 month. Digital Woman Screen Mammo: October 31, 2019 - Exam #: [id number] Bilateral CC and MLO view(s) were taken. Technologist: Malini Leija, Technologist Prior study comparison: October 03, 2018, bilateral digital woman screen mammo performed at [facility]. September 29, 2017, bilateral digital woman screen mammo performed at [facility]. August 23, 2016, digital woman screen mammo performed at [facility]. FINDINGS: There are scattered fibroglandular densities. The Volpara volumetric breast density category is:B. There has been no change in the appearance of the mammogram from the prior studies. There is a mild amount of scattered fibroglandular density which is fairly symmetric. There is no interval development of dominant mass, architectural distortion, or grouped microcalcification suggestive of malignancy. 3-D tomosynthesis shows no additional findings. Assessment: BI-RADS/ACR category 1 mammogram. Negative Mammogram. Recommendation Routine screening mammogram of both breasts in 1 year (for women over age 40). This patient's Lifetime Breast Cancer Risk is estimated at 3.3 %. This mammogram was interpreted with the aid of an FDA-approved computer-aided dectection system. Electronically Signed By: Gaudencio Lopez MD 11/01/19 [id number]
--- NOTE | 2019-11-02 10:39 | DEXA ---
AP SPINE L1 - L4 1.872 5.5 7.3 LT FEMUR TOTAL 0.877 -1.0 0.8 LT NECK 0.843 -1.4 0.6 RT FEMUR TOTAL 0.865 -1.1 0.7 RT NECK 0.979 -0.4 1.6 TOTAL BODY TOTAL OTHER COMMENTS: Normal Bone Densitometry of the spine. There is low bone density of the hips. The density of the spine has increased 44.8% since the initial exam on 01/08/2020. The increased 40.8% since the most recent exam on 05/01/2008. The density of the left hip has decreased 27.3% since the initial exam on 01/08/2000. The density of the left hip has decreased 17.8% since the most recent exam on 05/01/2008. The density of the right hip has decreased 15.6% since the initial exam on 01/08/2000. The density of the right hip has increased 15.6% since the most recent exam on 05/01/2008. FOLLOW-UP: Recommendation for the next bone density exam: 2 years. GEOVANNAD
== END ==
LOC: M WHC 13:06
PROVIDERS: ATTEND Family Medicine
DX: Z12.31 Encounter for screening mammogram for malignant neoplasm of breast (principal); M81.0 Age-related osteoporosis without current pathological fracture; M85.851 Other specified disorders of bone density and structure, right thigh; M85.852 Other specified disorders of bone density and structure, left thigh; Z80.0 Family history of malignant neoplasm of digestive organs; Z80.49 Family history of malignant neoplasm of other genital organs; Z79.899 Other long term (current) drug therapy

== ENCOUNTER → 2019-11-02 | Outpatient (CLI) | payer MEDICARE, OTHER ==
--- NOTE | 2019-12-03 10:18 | REP ---
COMPLETE ABDOMINAL ULTRASOUND CLINICAL: History of retroperitoneal adenopathy. COMPARISON: CT dated 12/01/2018. TECHNIQUE: Real-time knott scale ultrasound examination using curved array transducer FINDINGS: The liver demonstrates coarsened echotexture without focal hepatic lesion. The spleen is normal and measures 9.0 cm in maximal length. The pancreas is incompletely evaluated due to interposed bowel gas, but the visualized portions appear normal. Gallbladder demonstrates a 3 cm gallstone without wall thickening or pericholecystic fluid. No biliary ductal dilatation appreciated and the common bile duct measures 5 mm in diameter. Right kidney measures 10.3 cm in length and includes a subcentimeter mid pole cyst. The left kidney measures 12.6 cm in length and includes 4.9 cm upper pole cyst, 11 mm mid-upper pole cyst, and 1.4 cm lower pole cyst. Visualized abdominal aorta appears normal and measures 2.2 cm maximal diameter. No ascites. IMPRESSION: * Cholelithiasis. * Left renal hypoechoic structures likely representing cysts may be followed by pre- and postcontrast CT for definitive evaluation. * The previously noted retroperitoneal adenopathy and presumed panniculitis by CT cannot be evaluated by ultrasound and again, contrast enhanced CT of the abdomen and pelvis may be warranted for further investigation. MTDD
== END ==
LOC: M RAD 08:54
PROVIDERS: ATTEND Internal Medicine Hematology & Oncology
DX: R59.0 Localized enlarged lymph nodes (principal); K80.80 Other cholelithiasis without obstruction

== ENCOUNTER → 2020-05-14 | Outpatient (CLI) | payer MEDICARE, OTHER ==
[~2020-05-14] MED LIST changes: -FOLI400T PO; +FOLI400T13 PO; +HYDR-3490 PO; -HYDR25TAB PO
== END ==
LOC: M LABSMTC 11:23
PROVIDERS: ATTEND Anesthesiology
DX: Z01.812 Encounter for preprocedural laboratory examination (principal); Z20.822 Contact with and (suspected) exposure to COVID-19

== ENCOUNTER 2020-05-19 07:04 | Day surgery (SDC) | payer MEDICARE, OTHER ==
[~2020-05-19] VITALS: Ht 157.5 cm; Wt 78.2 kg
[~2020-05-19 07:04] MED LIST changes: +CEFUROXIME 1MG/0.1ML INTRACAMERAL INJ As Ordered ONE; +DUOVISC (0.50ML VISCOAT/0.55ML PROVISC) OPHTH KIT As Ordered ONE; +OFLOXACIN 0.3 % (OCUFLOX) OPTH SOL 5ML OS ONE; +PHENYLEPHRINE 2.5% OPHTH SOL 2ML OS ONE; +POVIDONE-IODINE 5% OPHTH PREP SOL 30ML As Ordered ONE; +PROPARACAINE 0.5% OPHTH SOL 15ML OS ONE; +TROPICAMIDE 1% OPHTH SOLN 2ML OS ONE
[2020-05-19] MEDS ORDERED: fentaNYL 100 MCG/2 ML INJECTION (J3010) As Ordered ONE (07:11)
[2020-05-19] MEDS ORDERED: MIDAZOLAM INJ 2MG/2ML VIAL (J2250 PER 1MG) As Ordered ONE (07:11)
[2020-05-19] MEDS ORDERED: BSS IRR 500ML/OMIDRIA 4ML IRR BAG (OR ONLY) As Ordered ONE (08:11)
[2020-05-19 10:20] VITALS: BP 127/68
--- NOTE | 2020-05-20 10:40 | RO ---
OPERATIVE NOTE DATE OF OPERATION: 05/19/2020 PREOPERATIVE DIAGNOSIS: 1. Visually significant dense nuclear sclerotic cataract, left eye. POSTOPERATIVE DIAGNOSIS: 1. Visually significant dense nuclear sclerotic cataract, left eye. PROCEDURE: 1. Extracapsular cataract extraction with insertion of intraocular lens, AU00T0, 21.5 D, left eye. SURGEON: Kun Starks DO ANESTHESIA: Local (Omidria with MAC) COMPLICATIONS: None POSTOPERATIVE CONDITION: Stable INDICATIONS FOR SURGERY: 1. Blurred vision affecting patient's activities of daily living. DESCRIPTION OF PROCEDURE: The patient was seen in the preoperative area and properly identified. The correct operative eye was identified and marked. The patient received topical anesthetic, antibiotics, and topical dilating drops. The patient was then transferred to the operating room. The correct side was re-identified and a time-out was performed. The eye was prepped and draped in a sterile fashion. The eyelids were isolated with Tegaderm tape and the lids were held open with an adjustable speculum. A 1.0mm paracentesis incision was made. Omidria was then injected into the anterior chamber. Viscoelastic was then injected into the anterior chamber through the paracentesis. Using a 2.4mm sharp-tipped keratome, the anterior chamber was entered via a temporal clear cornea incision. A continuous curvilinear capsulorrhexis was created with Utrata forceps. Hydrodissection was performed with BSS on a blunt cannula until the nucleus was able to rotate freely. The crystalline lens was phacoemulsified and aspirated. Irrigation/aspiration was used to remove the cortical material Cohesive viscoelastic was placed into the capsular bag to deepen it. The implant was placed into the capsular bag and allowed to unfold. Placement was confirmed by visualizing the anterior capsulorrhexis. Irrigation/aspiration was used to remove the viscoelastic. The clear corneal incision was hydrated with BSS on a blunt cannula. The lens was well positioned. Intracameral antibiotic was injected into the anterior chamber. The incisions were then tested for leaks and found to be negative. The eye was then palpated for appropriate pressure and adjusted accordingly with BSS. The eyelid speculum was then carefully removed. A shield was placed over the eye. The patient tolerated the procedure well and was discharge to the recovery unit in a stable condition.
== END 2020-05-19 10:20 | disposition home or self-care (01) ==
LOC: M SDC 07:04
PROVIDERS: ATTEND Ophthalmology
DX: H25.12 Age-related nuclear cataract, left eye (principal); I12.9 Hypertensive chronic kidney disease with stage 1 through stage 4 chronic kidney disease, or unspecified chronic kidney disease; N18.2 Chronic kidney disease, stage 2 (mild); E03.9 Hypothyroidism, unspecified; G47.30 Sleep apnea, unspecified; J44.9 Chronic obstructive pulmonary disease, unspecified; Z87.891 Personal history of nicotine dependence; F41.9 Anxiety disorder, unspecified; F32.9 Major depressive disorder, single episode, unspecified; Z79.899 Other long term (current) drug therapy; Z91.040 Latex allergy status
CPT/HCPCS: 66984; J1097; J2250; J3010; V2632

== ENCOUNTER → 2020-05-28 | Outpatient (CLI) | payer MEDICARE, OTHER ==
[~2020-05-28] MED LIST changes: -CEFUROXIME 1MG/0.1ML INTRACAMERAL INJ As Ordered ONE; -DUOVISC (0.50ML VISCOAT/0.55ML PROVISC) OPHTH KIT As Ordered ONE; -OFLOXACIN 0.3 % (OCUFLOX) OPTH SOL 5ML OS ONE; -PHENYLEPHRINE 2.5% OPHTH SOL 2ML OS ONE; -POVIDONE-IODINE 5% OPHTH PREP SOL 30ML As Ordered ONE; -PROPARACAINE 0.5% OPHTH SOL 15ML OS ONE; -TROPICAMIDE 1% OPHTH SOLN 2ML OS ONE
== END ==
LOC: M LABSMTC 10:38
PROVIDERS: ATTEND Anesthesiology
DX: Z01.812 Encounter for preprocedural laboratory examination (principal); Z20.822 Contact with and (suspected) exposure to COVID-19

== ENCOUNTER 2020-06-02 09:34 | Day surgery (SDC) | payer MEDICARE, OTHER ==
[~2020-06-02] VITALS: Ht 152.4 cm; Wt 70.3 kg
[~2020-06-02 09:34] MED LIST changes: +CEFUROXIME 1MG/0.1ML INTRACAMERAL INJ As Ordered ONE; +OFLOXACIN 0.3 % (OCUFLOX) OPTH SOL 5ML OD ONE; +PHENYLEPHRINE 2.5% OPHTH SOL 2ML OD ONE; +POVIDONE-IODINE 5% OPHTH PREP SOL 30ML As Ordered ONE; +PROPARACAINE 0.5% OPHTH SOL 15ML OD ONE; +TROPICAMIDE 1% OPHTH SOLN 2ML OD ONE
[2020-06-02] MEDS ORDERED: MIDAZOLAM INJ 2MG/2ML VIAL (J2250 PER 1MG) As Ordered ONE (11:41)
[2020-06-02] MEDS ORDERED: fentaNYL 100 MCG/2 ML INJECTION (J3010) As Ordered ONE (11:41)
[2020-06-02] MEDS: BSS IRR 500ML/OMIDRIA 4ML IRR BAG (OR ONLY) As Ordered ONE (13:29)
[2020-06-02] MEDS: DUOVISC (0.50ML VISCOAT/0.55ML PROVISC) OPHTH KIT As Ordered ONE ×3 (13:30→13:39)
[2020-06-02 14:00] VITALS: BP 136/62
--- NOTE | 2020-06-03 09:50 | RO ---
OPERATIVE NOTE DATE OF OPERATION: 06/02/2020 PREOPERATIVE DIAGNOSIS: 1. Visually significant nuclear sclerotic cataract, right eye. POSTOPERATIVE DIAGNOSIS: 1. Visually significant nuclear sclerotic cataract, right eye. PROCEDURE: 1. Cataract extraction with use of phacoemulsification, and placement of intraocular lens, AU00T0, 21.5 D, right eye. SURGEON: Kun Starks DO GRINDING MACHINE OPERATOR AUTOMATIC: ANESTHESIA: Local (Omidria) with MAC. COMPLICATIONS: None POSTOPERATIVE CONDITION: Stable INDICATIONS FOR SURGERY: 1. Blurred vision affecting patient's activities of daily living. DESCRIPTION OF PROCEDURE: The patient was seen in the preoperative area and properly identified. The correct operative eye was identified and marked. The patient received topical anesthetic, antibiotics, and topical dilating drops. The patient was then transferred to the operating room. The correct side was re-identified and a time out was performed. The eye was prepped and draped in a sterile fashion. The eyelids were isolated with Tegaderm tape and the lids were held open with an adjustable speculum. A 1.0 mm paracentesis incision was made. Omidria was then injected into the anterior chamber. Viscoelastic was then injected into the anterior chamber through the paracentesis. Using a 2.4 mm sharp-tipped keratome, the anterior chamber was entered via a temporal clear cornea incision. A continuous curvilinear capsulorrhexis was created with Utrata forceps. Hydrodissection was performed with BSS on a blunt cannula until the nucleus was able to rotate freely. The crystalline lens was phacoemulsified and aspirated. Irrigation/aspiration was used to remove the cortical material Cohesive viscoelastic was placed into the capsular bag to deepen it. The implant was placed into the capsular bag and allowed to unfold. Placement was confirmed by visualizing the anterior capsulorrhexis. Irrigation/aspiration was used to remove the viscoelastic. The clear corneal incision was hydrated with BSS on a blunt cannula. The lens was well positioned. Intracameral antibiotic was injected into the anterior chamber. The incisions were then tested for leaks and found to be negative. The eye was then palpated for appropriate pressure and adjusted accordingly with BSS. The eyelid speculum was then carefully removed. A shield was placed over the eye. The patient tolerated the procedure well and was discharge to the recovery unit in a stable condition.
== END 2020-06-02 14:12 | disposition home or self-care (01) ==
LOC: M SDC 09:34
PROVIDERS: ATTEND Ophthalmology
DX: H25.11 Age-related nuclear cataract, right eye (principal); I10 Essential (primary) hypertension; E78.5 Hyperlipidemia, unspecified; E03.9 Hypothyroidism, unspecified; K21.9 Gastro-esophageal reflux disease without esophagitis; Z85.72 Personal history of non-Hodgkin lymphomas; E53.9 Vitamin B deficiency, unspecified; N18.2 Chronic kidney disease, stage 2 (mild); Z91.040 Latex allergy status; Z87.891 Personal history of nicotine dependence; Z79.899 Other long term (current) drug therapy
CPT/HCPCS: 66984; J1097; J2250; J3010; V2632

== ENCOUNTER 2020-09-18 12:29 | Emergency (ER) | payer MEDICARE, OTHER ==
[~2020-09-18] VITALS: Ht 152.4 cm; Wt 72.7 kg
[~2020-09-18 12:29] MED LIST changes: -CEFUROXIME 1MG/0.1ML INTRACAMERAL INJ As Ordered ONE; -OFLOXACIN 0.3 % (OCUFLOX) OPTH SOL 5ML OD ONE; -PHENYLEPHRINE 2.5% OPHTH SOL 2ML OD ONE; -POVIDONE-IODINE 5% OPHTH PREP SOL 30ML As Ordered ONE; -PROPARACAINE 0.5% OPHTH SOL 15ML OD ONE; -TROPICAMIDE 1% OPHTH SOLN 2ML OD ONE
[2020-09-18] MEDS ORDERED: TROS60CA2 (13:00)
--- NOTE | 2020-09-18 13:33 | REP ---
INDICATION: trauma. COMPARISON: Multiple the latest 12/01/2018 also without contrast TECHNIQUE: Standard helical technique without intravenous or oral bowel preparatory contrast administration FINDINGS: For description of the lung bases see chest CT report obtained same day. The liver, gallbladder, spleen, pancreas, adrenal glands, and kidneys are unchanged. Note is again made of cholelithiasis and renal cysts. The bowel loops and the mesenteries are unchanged. 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 There is no free fluid or free air. There is no mass or adenopathy. Once again, note is made of a pessary ring in place. Bone window technique throughout the exam shows advanced spinal degenerative changes and discogenic degenerative changes status quo. IMPRESSION: Stable appearing chronic changes as described above. There is no evidence of acute disease. <Electronically signed by Ok Cota > 09/18/20 [id number]
--- NOTE | 2020-09-18 13:39 | REP ---
INDICATION: trauma COMPARISON: 10/01/2013 the latest prior TECHNIQUE: Noncontrast enhanced standard helical technique FINDINGS: Mediastinal adenopathy has developed since the last exam. There are multiple enlarged mediastinal lymph nodes. The largest node measures 1.4 cm in its short axis dimension. No gross hilar adenopathy has developed. There no pleural or pericardial effusions. Bone window technique throughout the examination shows chronic osseous changes status quo. There is no evidence of an acute fracture. Evaluation of the lung horwoitz shows no new abnormal nodules, masses, or opacities. IMPRESSION: Mediastinal adenopathy as described above. Etiology uncertain. Further workup is suggested. <Electronically signed by Ok Cota > 09/18/20 [id number]
--- NOTE | 2020-09-18 13:50 | REPVR ---
PROCEDURE INFORMATION: Exam: CT Cervical Spine Without Contrast Exam date and time: 09/18/2020 12:57 PM Age: 80 years old Clinical indication: Injury or trauma; Fall; Blunt trauma TECHNIQUE: Imaging protocol: Computed tomography images of the cervical spine without contrast. Radiation optimization: All CT scans at this facility use at least one of these dose optimization techniques: automated exposure control; mA and/or kV adjustment per patient size (includes targeted exams where dose is matched to clinical indication); or iterative reconstruction. COMPARISON: CT Neck without contrast 10/01/2013 11:18 AM FINDINGS: Bones/joints: Mild exaggeration of the cervical lordosis. Slight degenerative retrolisthesis of C3 on C4. Mild levoconvex scoliosis. No acute fracture seen. Marked disc height loss and spondylosis with uncovertebral arthropathy at C3-C4. Prior ACDF at C4-C5. Hardware appears intact and in place. At C2-C3, broad-based partially calcified disc protrusion as well as calcified buckled ligamentum flavum causing [id number] central spinal canal stenosis. At C3-C4, disc osteophyte complex and ligamentum flavum buckling causing moderate to severe central spinal canal stenosis. C3-C4 uncovertebral and facet arthropathy causing neural foraminal narrowing, in particular on the left. Moderate pannus like degenerative changes at C1-C2. Discs/Spinal canal/Neural foramina: See "Bones/joints" finding. Lymph nodes: Mild left cervical lymphadenopathy has developed since the prior study. For example, a left level 3 lymph node measuring 1.7 x 1.5 cm on image 55 of series 304. A left supraclavicular lymph node measures 1.3 x 1.3 cm on image 79 of series 302. Lungs: Lung apices are unremarkable. Vasculature: [id number] calcified atherosclerosis at the carotid bifurcations. Soft tissues: Unremarkable. IMPRESSION: 1. No cervical spine fracture seen. 2. Advanced degenerative disc disease at C3-C4, the level above cervical ACDF. There are high-grade central spinal canal and neural foraminal stenoses. 3. Mild left cervical lymphadenopathy has developed since the prior study of uncertain etiology and significance. Recommend a follow-up CT neck soft tissue study in 2-3 months. Electronically signed by: Kezia Deshpande On 09/18/2020 13:50:03 PM
--- NOTE | 2020-09-18 13:53 | REPVR ---
PROCEDURE INFORMATION: Exam: CT Head Without Contrast Exam date and time: 09/18/2020 12:57 PM Age: 80 years old Clinical indication: Injury or trauma; Fall; Blunt trauma (contusions or hematomas) TECHNIQUE: Imaging protocol: Computed tomography of the head without contrast. Radiation optimization: All CT scans at this facility use at least one of these dose optimization techniques: automated exposure control; mA and/or kV adjustment per patient size (includes targeted exams where dose is matched to clinical indication); or iterative reconstruction. COMPARISON: CT Head without contrast 04/01/2019 3:37 PM FINDINGS: Brain: The brain demonstrates diffuse volume loss. There is white matter hypodensity most consistent with chronic small vessel ischemic change. No visible evolving territorial infarct. No hemorrhage. Cerebral ventricles: The ventricles are enlarged in keeping with volume loss. Paranasal sinuses: Visualized sinuses are unremarkable. No fluid levels. Mastoid air cells: Visualized mastoid air cells are well aerated. Orbital cavity: Thinning of the lenses of the globes consistent with prior lens surgery. Bones/joints: Unremarkable. No acute fracture. Soft tissues: Unremarkable. IMPRESSION: No acute intracranial abnormality seen. Electronically signed by: Kezia Deshpande On 09/18/2020 13:53:06 PM
--- NOTE | 2020-09-18 14:06 | REPVR ---
PROCEDURE INFORMATION: Exam: CT Thoracic Spine Without Contrast Exam date and time: 09/18/2020 12:57 PM Age: 80 years old Clinical indication: Injury or trauma; Fall; Blunt trauma (contusions or hematomas) TECHNIQUE: Imaging protocol: Computed tomography images of the thoracic spine without contrast. Radiation optimization: All CT scans at this facility use at least one of these dose optimization techniques: automated exposure control; mA and/or kV adjustment per patient size (includes targeted exams where dose is matched to clinical indication); or iterative reconstruction. COMPARISON: CT ABD/PEL W/IV CONTRAST ONLY 08/23/2018 1:13 PM FINDINGS: Vertebrae: Cervical spine findings are dictated separately. Multilevel mild posterior facet joint arthropathy. Multilevel bridging ventral osteophytes. Minimal compression deformity of the T6 vertebral body, favored to be chronic in nature. No fracture lucency is identified. Normal alignment. Multilevel mild degenerative endplate changes. Discs/Spinal canal/Neural foramina: Moderate to severe bilateral neural foraminal narrowing at T10-T11. Mild spinal canal stenosis at T10-T11. Mild neural foraminal narrowing at several additional levels. Soft tissues: Unremarkable. Vasculature: Mild atherosclerotic changes. Lymph nodes: Mildly prominent mediastinal lymph nodes, measuring up to 12 mm in short axis dimension. Kidneys and ureters: Simple left renal cortical cyst. IMPRESSION: 1. Minimal T6 vertebral body compression deformity, favored to be chronic in nature. This could be confirmed with MRI if clinically warranted. Electronically signed by: Jessica Mcconnell On 09/18/2020 14:05:59 PM
--- NOTE | 2020-09-18 16:45 | REPVR ---
PROCEDURE INFORMATION: Exam: MR Thoracic Spine Without Contrast Exam date and time: 09/18/2020 2:21 PM Age: 80 years old Clinical indication: Injury or trauma; Fall; Blunt trauma (contusions or hematomas); Injury date: Today; Additional info: Trauma, ? acute vs chronic t6 fracture TECHNIQUE: Imaging protocol: Multiplanar magnetic resonance images of the thoracic spine without intravenous contrast. COMPARISON: 1. CT Spine,thoracic w/o contrast 09/18/2020 1:[address] Spine,cervical w/o contrast 09/18/2020 1:03:[address] ABD PELVIS W/O CONTRAST 09/18/2020 1:03:15 PM FINDINGS: Vertebrae: Redemonstrated is mild compression of the superior T6 endplate. This is associated with faint horizontal marrow edema and horizontally oriented fracture line, appears subacute to chronic. Vertebral body heights are otherwise intact. The cervical lordosis is mildly exaggerated. There is approximately 2 mm retrolisthesis at T12-L1. Alignment is otherwise maintained. Spinal cord: The spinal cord appears normal in signal. Multilevel findings: There are varying degrees of disc desiccation indicating intervertebral disc degeneration. There are also multilevel degenerative endplate changes. C6-C7: Included on the sagittal sequences only, there appears to be a disc osteophyte complex with mild right and moderate left neural foraminal narrowing. C7-T1: Small osteophytic ridge leading to mild left neural foraminal narrowing without significant spinal stenosis. T1-T2: Small bulge combining with facet arthrosis to lead to very mild right and mild left neural foraminal narrowing without significant spinal stenosis. T2-T3: No significant disc displacement. T3-T4: Very small bulge without significant neural foraminal narrowing or spinal stenosis. T4-T5: Minimal bulge without significant neural foraminal narrowing or spinal stenosis. T5-T6: No significant disc displacement. T6-T7: Very small broad-based left paracentral protrusion without significant neural foraminal narrowing or spinal stenosis. T7-T8: Broad-based central protrusion without significant neural foraminal narrowing or spinal stenosis. T8-T9: No significant disc displacement. T9-T10: No significant disc displacement. T10-T11: Disc osteophyte complex combining with facet arthrosis to lead to moderate right and mild left neural foraminal narrowing without significant spinal stenosis. T11-T12: Minimal bulge without significant neural foraminal narrowing or spinal stenosis. T12-L1: Disc osteophyte complex combining with facet arthrosis to lead to mild right and moderate left neural foraminal narrowing without significant spinal stenosis. Soft tissues: Unremarkable. Gallbladder and bile ducts: Gallstone is again noted. Kidneys and ureters: Bilateral renal cysts are again present, partially included. IMPRESSION: 1. Mild compression of the superior T6 endplate, associated with faint horizontal marrow edema and horizontally oriented fracture line, appears subacute to chronic. 2. Multilevel disc desiccation indicating intervertebral disk degeneration with disc displacements as described. COMMENTS: If surgery is considered, recommend level confirmation. Electronically signed by: Lakhwinder Piña On 09/18/2020 16:45:04 PM
[2020-09-18 18:00] VITALS: BP 166/79
[2020-09-18] MEDS ORDERED: TRAM50TA2 PO (18:06)
== END 2020-09-18 18:31 | disposition home or self-care (01) ==
LOC: M ED 12:29
DX: S22.050A Wedge compression fracture of T5-T6 vertebra, initial encounter for closed fracture (principal); W10.9XXA Fall (on) (from) unspecified stairs and steps, initial encounter; Y92.009 Unspecified place in unspecified non-institutional (private) residence as the place of occurrence of the external cause; Y93.9 Activity, unspecified; Y99.9 Unspecified external cause status; R59.0 Localized enlarged lymph nodes; D11.0 Benign neoplasm of parotid gland; Z85.72 Personal history of non-Hodgkin lymphomas; M51.34 Other intervertebral disc degeneration, thoracic region; M50.30 Other cervical disc degeneration, unspecified cervical region; M51.24 Other intervertebral disc displacement, thoracic region; M48.061 Spinal stenosis, lumbar region without neurogenic claudication; J44.9 Chronic obstructive pulmonary disease, unspecified; G47.33 Obstructive sleep apnea (adult) (pediatric); F32.9 Major depressive disorder, single episode, unspecified; F17.200 Nicotine dependence, unspecified, uncomplicated; Z79.890 Hormone replacement therapy; Z79.899 Other long term (current) drug therapy; Z91.040 Latex allergy status

== ENCOUNTER → 2020-09-26 | Outpatient (CLI) | payer MEDICARE, OTHER ==
[~2020-09-26] MED LIST changes: +TRAM50TA2 PO; +TROS60CA2
[2020-09-26 17:20] LABS: FREE THYROXINE INDEX 4.2 % (1.3-4.8); T UPTAKE 40 % (30-39); THYROID STIMULATING HORMONE 0.208 uIU/ML (0.358-3.740); THYROXINE (T4) 10.4 UG/DL (4.5-12.0)
[2020-09-26 17:21] LABS: VITAMIN B12 LEVEL > 2000 PG/ML
[2020-09-26 17:22] LABS: FOLATE > 24.0 NG/ML
[2020-09-30 11:45] LABS: DRVV SCREEN 39.1 SEC
== END ==
LOC: M WUC 10:16
PROVIDERS: ATTEND Psychiatry & Neurology Neurology
DX: E07.9 Disorder of thyroid, unspecified (principal); E53.8 Deficiency of other specified B group vitamins; D64.9 Anemia, unspecified

== ENCOUNTER → 2020-09-26 | Outpatient (CLI) | payer MEDICARE, OTHER ==
[2020-09-26 16:40] LABS: BASO # 0.1 10^3/uL (0.0-0.2); EOS # 0.2 10^3/uL (0.0-0.5); EOS % 2.6 % (0.0-3.0); HEMOGLOBIN 11.6 g/dl (12.0-15.5); LYMPH # 1.2 10^3/uL (1.5-5.0); LYMPH % 19.8 % (24.0-44.0); MEAN CORPUSCULAR HEMOGLOBIN 30.2 pg (27.0-33.0); MEAN CORPUSCULAR HGB CONC 32.2 g/dl (32.0-36.5); MEAN CORPUSCULAR VOLUME 93.8 fl (80.0-96.0); MONO # 0.4 10^3/uL (0.0-0.8); MONO % 7.5 % (2.0-8.0); NEUTROPHILS % 68.8 % (36.0-66.0); PLATELET COUNT, AUTOMATED 285 10^3/uL (150-450); RED BLOOD COUNT 3.84 10^6/uL (4.00-5.40); WHITE BLOOD COUNT 5.9 10^3/uL (4.0-10.0)
[2020-09-26 17:13] LABS: ALBUMIN 3.4 GM/DL (3.2-5.2); BILIRUBIN,TOTAL 0.5 MG/DL (0.2-1.0); CALCIUM LEVEL 9.7 MG/DL (8.8-10.2); CREATININE FOR GFR 1.71 MG/DL (0.55-1.30); GLOMERULAR FILTRATION RATE 30.7 (>39); POTASSIUM SERUM 4.2 MEQ/L (3.5-5.1); TOTAL PROTEIN 6.4 GM/DL (6.4-8.2)
== END ==
LOC: M WUC 10:20
PROVIDERS: ATTEND Internal Medicine Hematology & Oncology
DX: D64.9 Anemia, unspecified (principal)

== ENCOUNTER → 2020-10-20 | Outpatient (CLI) | payer MEDICARE, OTHER ==
--- NOTE | 2020-10-20 12:06 | REPMRS ---
Patient History The patient states she has not had a clinical breast exam in over a year. Family history of breast cancer at age 50 or over in maternal aunt, colorectal cancer at age 50 or over in mother, endometrial cancer at age 50 or over in sister. Taking estrogen for 2 years 1 month in the past off now. Patient states no breast complaints today. Patient has signed MRS History Sheet. Digital Woman Screen Mammo: October 20, 2020 - Exam #: [id number] Bilateral CC and MLO view(s) were taken. Technologist: Malena Bueno, [employer] Prior study comparison: October 31, 2019, bilateral digital woman screen mammo performed at [facility]. October 03, 2018, bilateral digital woman screen mammo performed at [facility]. FINDINGS: There are scattered fibroglandular densities. Screening. Digital screening (2D) mammography was performed bilaterally in the CC and MLO projections. Additionally, breast tomosynthesis (3D mammography) was performed bilaterally in the CC and MLO projections. Todays exam was compared to the prior exam/exams. By history, the patient has no complaints of a palpable breast abnormality or other significant breast complaints. The breasts are unchanged in size and shape. There are no andreea-soft tissue densities or spiculated masses. There is no internal architectural distortion. Calcifications are again seen in the breast/breasts. Some of these are in groups but no one group appears more suspicious than any other. There are no suspicious andreea-calcific clusters. Skin thickening or nipple retraction is not present. IMPRESSION: BI-RADS Category 2- Benign Findings. There is no evidence of malignant alteration of the breasts. Followup examination recommended in one year. The Volpara volumetric breast density category is B, there are scattered areas of fibroglandular densities. This mammogram was read with the assistance of [employer],an FDA approved computer aided detection system for mammography. The lifetime Tyrer-Cuzick score is 2.9 % Negative x-ray reports should not delay surgical consultation if a dominant or clinically suspicious mass is present. Not all breast cancers can be identified by mammography. Therefore, we recommend that you continue to perform regular breast self-examination and physical examination and then promptly contact your physician of any concerns or changes. Adenosis and dense breasts may obscure an underlying neoplasm. Assessment: BI-RADS/ACR category 2 mammogram. Benign Findings. Recommendation Routine screening mammogram of both breasts in 1 year. Electronically Signed By: Ok Cota DO 10/20/20 [id number]
== END ==
LOC: M WHC 11:24
PROVIDERS: ATTEND Family Medicine
DX: Z12.31 Encounter for screening mammogram for malignant neoplasm of breast (principal)

== ENCOUNTER 2020-11-22 11:00 | Emergency (ER) | payer MEDICARE, OTHER ==
[~2020-11-22] VITALS: Ht 152.4 cm; Wt 77.3 kg
[2020-11-22 11:01] VITALS: BP 132/73
[2020-11-22] MEDS ORDERED: LIDOCAINE 1% MDV 20ML VIAL SC ONE (12:15)
--- NOTE | 2020-11-22 12:31 | REP ---
INDICATION: laceration fall. COMPARISON: None. TECHNIQUE: Four views FINDINGS: Degenerative changes are seen throughout the hand and wrist. There is no evidence of an acute fracture IMPRESSION: Chronic changes <Electronically signed by Ok Cota > 11/22/20 [id number]
--- NOTE | 2020-11-22 12:54 | REP ---
INDICATION: fall from standing. COMPARISON: 09/18/2020 TECHNIQUE: 5 mm contiguous transaxial sections were obtained from the skull base to the cerebral convexities. FINDINGS: The ventricles and sulci are unchanged. There are no extra-axial fluid collections. There is no shift of the midline structures. The deep cerebral white matter is unchanged. There is no change in appearance of the posterior fossa. The paranasal sinuses and mastoid air cells are again seen to be clear. IMPRESSION: No change from the prior exam. There is no evidence of an acute intracranial hemorrhagic or non hemorrhagic event. <Electronically signed by Ok Cota > 11/22/20 [id number]
[2020-11-22] MEDS ORDERED: CEPH500C PO (14:02)
[2020-11-22] MEDS ORDERED: BOOSTRIX/ADACEL VACCINE (DIPHTH/PERTUSS/ACELL/TETANUS) 0.5ML SYR IM ONE (14:15)
[2020-12-09] MEDS ORDERED: VITA400T24 PO (08:59)
== END 2020-11-22 14:24 | disposition home or self-care (01) ==
LOC: M ED 11:00
DX: S61.411A Laceration without foreign body of right hand, initial encounter (principal); W01.198A Fall on same level from slipping, tripping and stumbling with subsequent striking against other object, initial encounter; Y92.009 Unspecified place in unspecified non-institutional (private) residence as the place of occurrence of the external cause; Y93.89 Activity, other specified; Y99.8 Other external cause status; E03.9 Hypothyroidism, unspecified; J44.9 Chronic obstructive pulmonary disease, unspecified; I10 Essential (primary) hypertension; D51.9 Vitamin B12 deficiency anemia, unspecified; Z79.899 Other long term (current) drug therapy; Z79.890 Hormone replacement therapy; Z98.890 Other specified postprocedural states

== ENCOUNTER → 2020-11-27 | Outpatient (CLI) | payer MEDICARE, OTHER ==
[~2020-11-27] MED LIST changes: +CEPH500C PO
--- NOTE | 2020-11-27 13:33 | REP ---
INDICATION: LYMPHADENOPATHY. COMPARISON: Chest CT, 09/18/2020. TECHNIQUE: Imaging protocol: Computed tomography of the chest without IV contrast. Contiguous 3 mm thick axial projection images were obtained through the chest. 2D sagittal and coronal reconstructions were performed. Radiation optimization: All CT scans at this facility use at least one of these dose optimization techniques: automated exposure control; mA and/or kV adjustment per patient size (includes targeted exams where dose is matched to clinical indication); or iterative reconstruction. FINDINGS: Lower neck: The thyroid gland is normal. There is supraclavicular lymphadenopathy, the largest on the left measuring 12 x 10 mm. Mediastinum: There is mediastinal and retrocrural lymphadenopathy, the largest, a subcarinal lymph node, measuring 2.4 x 1.1 cm. There is a prominent pericardial recess in the anterior mediastinum. Heart/thoracic aorta: The heart size is normal. There is no pericardial effusion. Upper abdomen: There is a 2.2 cm in diameter gallstone. There is upper abdominal lymphadenopathy. There is calcific vascular disease of the abdominal aorta. There is a 4.6 cm in diameter cortical cyst in the upper pole of the left kidney. There are smaller cortical cysts in both kidneys. Thoracic esophagus: Normal. Chest wall and axilla: The breasts and soft tissues of the chest wall appear unremarkable. There is no axillary lymphadenopathy. There is moderate to severe multilevel degenerative disc disease of the mid and lower thoracic spine with associated dextroscoliosis. There is moderate compression of the superior endplate of T6, not present previously. Lung parenchyma: There are small areas of peripheral nodular airspace consolidation in the superior segment of the lower lobe of the left lung (image [id number], [id number]). The lungs are otherwise clear. There are no pleural effusions. IMPRESSION: 1. Supraclavicular, mediastinal, retrocrural and upper abdominal lymphadenopathy, not significantly changed. Suspicious for lymphoma. 2. 2 small areas of peripheral nodular airspace consolidation in the lower lobe of the left lung not present previously. 3. Cholelithiasis, not significantly changed. 4. Thoracolumbar degenerative disc disease with dextroscoliosis. 5. Interval development of moderate compression of the superior endplate of T6. 6. Other findings as noted. <Electronically signed by Ruddy Mills > 11/27/20 [id number]
--- NOTE | 2020-11-27 13:39 | REPVR ---
PROCEDURE INFORMATION: Exam: CT Neck Without Contrast Exam date and time: 11/27/2020 12:57 PM Age: 80 years old Clinical indication: Other: Lymphadenopathy TECHNIQUE: Imaging protocol: Computed tomography images of the neck without contrast. Radiation optimization: All CT scans at this facility use at least one of these dose optimization techniques: automated exposure control; mA and/or kV adjustment per patient size (includes targeted exams where dose is matched to clinical indication); or iterative reconstruction. COMPARISON: CT Spine,cervical w/o contrast 09/18/2020 1:03 PM FINDINGS: Nasopharynx: Unremarkable. Oropharynx: Unremarkable. No significant tonsillar enlargement. Hypopharynx: Unremarkable. Larynx: Unremarkable. Normal epiglottis. Retropharyngeal space: Unremarkable. Submandibular/Parotid glands: There is a 2.5 x 1.8 cm left intraparotid solid homogeneous mass. Thyroid: Normal. No enlarged or calcified nodules. Lymph nodes: There are small, scattered multilevel cervical lymph nodes. There is a 12 mm left lower IJ lymph node. Trachea: Visualized trachea is unremarkable. Lungs: Unremarkable as visualized. Bones/joints: Ventral fixation plate and screws are noted at C4 and C5, with intervertebral spacer material. Soft tissues: Unremarkable. No significant soft tissue swelling. IMPRESSION: 1. 2.5 cm left parotid mass, potentially enlarged intraparotid lymph node versus primary parotid neoplasm. Tissue sampling is recommended. 2. Additional small, scattered multilevel cervical lymph nodes. Electronically signed by: Gaby Bauer On 11/27/2020 13:39:43 PM
--- NOTE | 2020-11-27 14:17 | REP ---
INDICATION: LYMPHADENOPATHY. COMPARISON: CT abdomen pelvis, 12/01/2018. TECHNIQUE: Imaging protocol: Computed tomography of the abdomen and pelvis without IV contrast. Contiguous 3 mm thick axial projection images were obtained through the abdomen and pelvis. 2D sagittal and coronal reconstructions were performed. Radiation optimization: All CT scans at this facility use at least one of these dose optimization techniques: automated exposure control; mA and/or kV adjustment per patient size (includes targeted exams where dose is matched to clinical indication); or iterative reconstruction. FINDINGS: Heart and lung bases: Please see CT chest report, same day. Liver: Normal unenhanced appearance. Gallbladder: There is a 2.0 cm in diameter gallstone. Spleen: Normal unenhanced appearance. Pancreas: Normal unenhanced appearance. Adrenal glands: Normal unenhanced appearance. Kidneys/bladder: There are multiple cortical cysts in both kidneys, the largest in the upper pole of the left kidney measuring 4.5 cm in diameter. There is air within the urinary bladder consistent with recent instrumentation. Pelvic structures: The uterus is surgically absent. The ovaries are not identified. There is a vaginal cerclage. There is no free fluid in the pelvis. There are a few reactive pelvic and bilateral inguinal lymph nodes. GI tract: There is moderate descending colonic and sigmoid diverticulosis without diverticulitis. There is scattered diverticuli throughout the remainder of the colon. There is stool throughout the colon. There is a normal appendix demonstrated. Abdominal wall and mesentery: There is a 12 mm in diameter umbilical hernia containing normal fat. There are reactive upper abdominal, mesenteric and retroperitoneal lymph nodes, the largest a left Beronica aortic lymph node measuring 2.9 x 1.2 cm. There is increased attenuation of the central mesenteric fat consistent with sclerosing mesenteritis (mesenteric panniculitis). Abdominal aorta and vascular structures: There is calcific vascular disease of the abdominal aorta. Bony structures: There is severe multilevel degenerative disc disease of the lower thoracic and lumbar spine with associated levoscoliosis. There is gas within the spinal canal at the L2-3 and L5-S1 levels consistent with ruptured annuli fibrosi. IMPRESSION: 1. Upper abdominal, retroperitoneal, mesenteric, pelvic and inguinal reactive lymphadenopathy, not significantly changed. 2. Colonic diverticulosis without diverticulitis. 3. Mild constipation. 4. Cholelithiasis, not significantly changed. 5. Severe lumbar degenerative disc disease with levoscoliosis. Other findings as noted. <Electronically signed by Ruddy Mills > 11/27/20 [id number]
== END ==
LOC: M RAD 12:52
PROVIDERS: ATTEND Internal Medicine
DX: R59.1 Generalized enlarged lymph nodes (principal); N28.1 Cyst of kidney, acquired; K57.30 Diverticulosis of large intestine without perforation or abscess without bleeding; K42.9 Umbilical hernia without obstruction or gangrene; K59.00 Constipation, unspecified; K80.20 Calculus of gallbladder without cholecystitis without obstruction; M51.36 Other intervertebral disc degeneration, lumbar region; M51.35 Other intervertebral disc degeneration, thoracolumbar region

== ENCOUNTER → 2021-03-10 | Outpatient (CLI) | payer MEDICARE, OTHER ==
[~2021-03-10] MED LIST changes: +ISOVUE-370 76% 100ML VIAL As Ordered ONE
--- NOTE | 2021-03-10 14:19 | REPVR ---
PROCEDURE INFORMATION: Exam: CT Neck With Contrast Exam date and time: 03/10/2021 2:01 PM Age: 80 years old Clinical indication: Condition or disease; Other: Lymphoma; Additional info: Lymphoma, staging TECHNIQUE: Imaging protocol: Computed tomography images of the neck with contrast. Radiation optimization: All CT scans at this facility use at least one of these dose optimization techniques: automated exposure control; mA and/or kV adjustment per patient size (includes targeted exams where dose is matched to clinical indication); or iterative reconstruction. Contrast material: ISOVUE 370; Contrast volume: 75 ml; Contrast route: INTRAVENOUS (IV); COMPARISON: CT Neck without contrast 11/27/2020 1:04 PM FINDINGS: Nasopharynx: Unremarkable. Oropharynx: Unremarkable. No significant tonsillar enlargement. Hypopharynx: Unremarkable. Larynx: Unremarkable. Normal epiglottis. Retropharyngeal space: Unremarkable. Submandibular/Parotid glands: There is unchanged left enhancing parotid mass measuring 2.5 cm x 1.8 cm x 2.3 cm. Thyroid: Normal. No enlarged or calcified nodules. Lymph nodes: Again seen are bilateral cervical lymph nodes. Many of these are short axis subcentimeter diameter. Overall lymph nodes are smaller such as right lower cervical lymph node previously measuring maximum 1.3 cm and currently 1.2 cm and left posterior triangle lymph node measuring maximum previously of 1.5 cm and currently 1 cm. Trachea: Visualized trachea is unremarkable. Lungs: Unremarkable as visualized. Bones/joints: Ventral fixation plate and screws are noted at C4 and C5, with intervertebral spacer material. There is disc osteophyte complex at C3-C4 with uncinate osteophytes causing neural foraminal narrowing. Soft tissues: Unremarkable. No significant soft tissue swelling. IMPRESSION: 1. Stable left parotid mass. 2. Scattered cervical lymph nodes with decreased size of multiple lymph nodes with pharmacy sales representative lymph nodes as described. Electronically signed by: Malathi Mondragon On 03/10/2021 14:19:17 PM
== END ==
LOC: M RAD 13:35
PROVIDERS: ATTEND Internal Medicine Medical Oncology
DX: C85.90 Non-Hodgkin lymphoma, unspecified, unspecified site (principal)
CPT/HCPCS: 70491; Q9967

== ENCOUNTER → 2021-04-03 | Outpatient (REF) | payer MEDICARE, OTHER ==
[~2021-04-03] MED LIST changes: -ISOVUE-370 76% 100ML VIAL As Ordered ONE
== END ==
LOC: M LAB REF 15:53
PROVIDERS: ATTEND Otolaryngology
DX: D11.0 Benign neoplasm of parotid gland (principal)

== ENCOUNTER 2021-12-25 11:41 | Emergency (ER) | payer MEDICARE, OTHER ==
[~2021-12-25] VITALS: Ht 154.9 cm; Wt 82.6 kg
[2021-12-25 11:43] VITALS: BP 133/98
[2021-12-25] MEDS ORDERED: ACETAMINOPHEN 500 MG TAB PO ONE (15:45)
[2021-12-25] MEDS ORDERED: BOOSTRIX/ADACEL VACCINE (DIPHTH/PERTUSS/ACELL/TETANUS) 0.5ML SYR IM ONE (15:45)
== END 2021-12-25 16:07 | disposition home or self-care (01) ==
LOC: M ED 11:41
DX: S50.811A Abrasion of right forearm, initial encounter (principal); S20.211A Contusion of right front wall of thorax, initial encounter; S42.211A Unspecified displaced fracture of surgical neck of right humerus, initial encounter for closed fracture; W18.30XA Fall on same level, unspecified, initial encounter; Y92.099 Unspecified place in other non-institutional residence as the place of occurrence of the external cause; Y93.89 Activity, other specified; I10 Essential (primary) hypertension; J44.9 Chronic obstructive pulmonary disease, unspecified; K21.9 Gastro-esophageal reflux disease without esophagitis; E03.9 Hypothyroidism, unspecified; F32.9 Major depressive disorder, single episode, unspecified; F41.9 Anxiety disorder, unspecified; E55.9 Vitamin D deficiency, unspecified; E53.8 Deficiency of other specified B group vitamins; M21.379 Foot drop, unspecified foot; Z79.890 Hormone replacement therapy; Z79.899 Other long term (current) drug therapy; Z91.040 Latex allergy status

== ENCOUNTER → 2022-01-04 | Outpatient (REF) | payer MEDICARE, OTHER ==
[~2022-01-04] MED LIST changes: +CEFD300CAP PO; +HYDR-3713 PO; -TROS60CA2; +TROS60CA2 PO
== END ==
LOC: M LAB REF 16:11
PROVIDERS: ATTEND Family Medicine
DX: N39.0 Urinary tract infection, site not specified (principal)

== ENCOUNTER 2022-01-05 09:44 | Inpatient (IN) | payer MEDICARE, OTHER ==
[~2022-01-05] VITALS: Ht 154.9 cm; Wt 81.5 kg
[~2022-01-05 09:44] MED LIST changes: -CEFD300CAP PO; -HYDR-3713 PO
[2022-01-05] MEDS ORDERED: ACETAMINOPHEN 500 MG TAB PO ONE (10:05)
[2022-01-05 11:03] LABS: RSV AMPLIFICATION NEGATIVE (NEGATIVE)
[2022-01-05 11:55] LABS: BASO % 0.3 % (0.0-1.0); EOS # 0.1 10^3/uL (0.0-0.5); EOS % 0.5 % (0.0-3.0); HEMATOCRIT 35.3 % (36.0-47.0); HEMOGLOBIN 11.8 g/dl (12.0-15.5); LYMPH % 9.6 % (24.0-44.0); MEAN CORPUSCULAR HEMOGLOBIN 29.9 pg (27.0-33.0); MEAN CORPUSCULAR HGB CONC 33.4 g/dl (32.0-36.5); MEAN CORPUSCULAR VOLUME 89.4 fl (80.0-96.0); MONO # 0.8 10^3/uL (0.0-0.8); MONO % 7.5 % (2.0-8.0); NEUTROPHILS # 8.5 10^3/uL (1.5-8.5); NEUTROPHILS % 81.4 % (36.0-66.0); PLATELET COUNT, AUTOMATED 345 10^3/uL (150-450); RED BLOOD COUNT 3.95 10^6/uL (4.00-5.40); WHITE BLOOD COUNT 10.5 10^3/uL (4.0-10.0)
[2022-01-05 12:53] LABS: ALBUMIN 3.1 GM/DL (3.2-5.2); BILIRUBIN,TOTAL 0.7 MG/DL (0.2-1.0); CALCIUM LEVEL 10.5 MG/DL (8.8-10.2); CREATININE FOR GFR 1.84 MG/DL (0.55-1.30); GLOMERULAR FILTRATION RATE 28.2 (>39); POTASSIUM SERUM 4.5 MEQ/L (3.5-5.1); TOTAL PROTEIN 6.7 GM/DL (6.4-8.2)
[2022-01-05 15:17] LABS: THYROID STIMULATING HORMONE 1.41 uIU/ML (0.358-3.740)
[2022-01-05] MEDS ORDERED: NS 1,000 ML IV ONE (16:20)
[2022-01-05] MEDS ORDERED: IPRATROPIUM 0.5MG/ALBUTEROL 2.5MG INH SOL UD 3ML (DUONEB) NEB PRN (16:25)
[2022-01-05] MEDS ORDERED: HYDR-3713 PO (17:35)
[2022-01-05] MEDS ORDERED: HOME MED LIST COMPLETE! XX SCH (17:40)
[2022-01-05] MEDS: cefTRIAXone SOD 2 GM in D5W MINI-BAG PLUS 50 ML IV SCH (18:37)
[2022-01-05] MEDS: ADVAIR HFA 115/21MCG INHALER INH SCH (20:00)
[2022-01-05] MEDS: METOPROLOL TART 12.5 MG PER 1/2 TAB PO SCH (21:00)
[2022-01-05] MEDS: SIMVASTATIN 20 MG TAB PO SCH (22:50)
[2022-01-05] MEDS: PARoxetine 20MG TABLET PO SCH (22:50)
[2022-01-06] MEDS: RAMELTEON 8 MG TAB (ROZEREM) PO PRN ×2 (01:56→21:46)
[2022-01-06] MEDS: PERCOCET 5MG/325MG TAB PO PRN ×3 (03:52→18:27)
[2022-01-06] MEDS: HEPARIN SOD (PORCINE) 5000UNITS/ML 1ML VIAL/SYRINGE SC SCH ×3 (06:32→21:45)
[2022-01-06] MEDS: LEVOTHYROXINE 100MCG TABLET (0.1MG) PO SCH (06:32)
[2022-01-06 06:36] VITALS: BP 115/78
[2022-01-06 07:20] LABS: HEMATOCRIT 33.6 % (36.0-47.0); HEMOGLOBIN 11.2 g/dl (12.0-15.5); MEAN CORPUSCULAR HEMOGLOBIN 30.1 pg (27.0-33.0); MEAN CORPUSCULAR HGB CONC 33.3 g/dl (32.0-36.5); MEAN CORPUSCULAR VOLUME 90.3 fl (80.0-96.0); PLATELET COUNT, AUTOMATED 361 10^3/uL (150-450); RED BLOOD COUNT 3.72 10^6/uL (4.00-5.40); WHITE BLOOD COUNT 9.4 10^3/uL (4.0-10.0)
[2022-01-06 07:57] LABS: CALCIUM LEVEL 10.4 MG/DL (8.8-10.2); CREATININE FOR GFR 1.88 MG/DL (0.55-1.30); GLOMERULAR FILTRATION RATE 27.5 (>39); POTASSIUM SERUM 4.4 MEQ/L (3.5-5.1)
[2022-01-06] MEDS: METOPROLOL TART 12.5 MG PER 1/2 TAB PO SCH ×2 (08:31→21:46)
[2022-01-06] MEDS: ADVAIR HFA 115/21MCG INHALER INH SCH ×2 (08:48→21:14)
[2022-01-06] MEDS: LR 1,000 ML IV SCH ×2 (09:30→13:31)
[2022-01-06] MEDS ORDERED: LIDOCAINE 1% MDV 20ML VIAL As Ordered ONE (10:27)
[2022-01-06] MEDS: cefTRIAXone SOD 2 GM in D5W MINI-BAG PLUS 50 ML IV SCH (17:04)
[2022-01-06] MEDS ORDERED: SODIUM CHLORIDE 0.9% INJ 10 ML SYR IV PRN (17:25)
[2022-01-06] MEDS: SODIUM CHLORIDE 0.9% INJ 10 ML SYR IV SCH (17:25)
[2022-01-06] MEDS: PARoxetine 20MG TABLET PO SCH (21:46)
[2022-01-06] MEDS: SIMVASTATIN 20 MG TAB PO SCH (21:47)
[2022-01-06] MEDS: ACETAMINOPHEN TAB 650MG DOSE (2X325MG) PO PRN (21:47)
[2022-01-06 22:00] VITALS: BP 123/76
[2022-01-07] MEDS: LR 1,000 ML IV SCH ×2 (02:06→08:42)
[2022-01-07] MEDS: HEPARIN SOD (PORCINE) 5000UNITS/ML 1ML VIAL/SYRINGE SC SCH ×2 (06:25→14:41)
[2022-01-07] MEDS: LEVOTHYROXINE 100MCG TABLET (0.1MG) PO SCH (06:25)
[2022-01-07 06:42] VITALS: BP 142/76
[2022-01-07] MEDS: ADVAIR HFA 115/21MCG INHALER INH SCH (08:00)
[2022-01-07 08:41] VITALS: BP 140/86
[2022-01-07] MEDS: METOPROLOL TART 12.5 MG PER 1/2 TAB PO SCH (08:41)
[2022-01-07] MEDS: ACETAMINOPHEN TAB 650MG DOSE (2X325MG) PO PRN (08:42)
[2022-01-07] MEDS: PERCOCET 5MG/325MG TAB PO PRN ×2 (10:07→16:19)
[2022-01-07 11:37] LABS: BASO # 0.1 10^3/uL (0.0-0.2); BASO % 0.9 % (0.0-1.0); EOS # 0.2 10^3/uL (0.0-0.5); HEMATOCRIT 31.9 % (36.0-47.0); HEMOGLOBIN 10.3 g/dl (12.0-15.5); LYMPH # 1.1 10^3/uL (1.5-5.0); LYMPH % 13.2 % (24.0-44.0); MEAN CORPUSCULAR HEMOGLOBIN 29.8 pg (27.0-33.0); MEAN CORPUSCULAR HGB CONC 32.3 g/dl (32.0-36.5); MEAN CORPUSCULAR VOLUME 92.2 fl (80.0-96.0); MONO # 0.8 10^3/uL (0.0-0.8); MONO % 9.7 % (2.0-8.0); NEUTROPHILS # 5.9 10^3/uL (1.5-8.5); NEUTROPHILS % 72.7 % (36.0-66.0); PLATELET COUNT, AUTOMATED 345 10^3/uL (150-450); RED BLOOD COUNT 3.46 10^6/uL (4.00-5.40); WHITE BLOOD COUNT 8.1 10^3/uL (4.0-10.0)
[2022-01-07] MEDS ORDERED: CEFD300CAP PO (11:42)
[2022-01-07 12:34] LABS: CALCIUM LEVEL 9.6 MG/DL (8.8-10.2); CREATININE FOR GFR 1.99 MG/DL (0.55-1.30); GLOMERULAR FILTRATION RATE 25.7 (>39); POTASSIUM SERUM 4.3 MEQ/L (3.5-5.1)
[2022-01-07] MEDS: SODIUM CHLORIDE 0.9% INJ 10 ML SYR IV SCH (17:02)
[2022-01-07] MEDS ORDERED: CEFDINIR 300 MG CAP (OMNICEF) PO SCH (18:00)
== END 2022-01-07 18:25 | DRG 562 ==
LOC: M ED 09:44 → M ED INP 15:48 → ENRESERV 20:51 → M MS5PR 21:45
PROVIDERS: ADMIT Internal Medicine; ATTEND Internal Medicine
PROC: 05HC33Z Insertion of Infusion Device into Left Basilic Vein, Percutaneous Approach (ICD-10-PCS; principal; 2022-01-06 11:30)
DX: S42.251A Displaced fracture of greater tuberosity of right humerus, initial encounter for closed fracture (principal); G92.8 Other toxic encephalopathy; N39.0 Urinary tract infection, site not specified; E87.1 Hypo-osmolality and hyponatremia; F03.90 Unspecified dementia, unspecified severity, without behavioral disturbance, psychotic disturbance, mood disturbance, and anxiety; N18.9 Chronic kidney disease, unspecified; J44.9 Chronic obstructive pulmonary disease, unspecified; E03.9 Hypothyroidism, unspecified; E78.5 Hyperlipidemia, unspecified; F32.A Depression, unspecified; F41.9 Anxiety disorder, unspecified; R29.6 Repeated falls; S82.831A Other fracture of upper and lower end of right fibula, initial encounter for closed fracture; M21.371 Foot drop, right foot; W01.0XXA Fall on same level from slipping, tripping and stumbling without subsequent striking against object, initial encounter; Y92.009 Unspecified place in unspecified non-institutional (private) residence as the place of occurrence of the external cause; Z79.890 Hormone replacement therapy; Z79.899 Other long term (current) drug therapy; Z91.040 Latex allergy status; E83.52 Hypercalcemia; I12.9 Hypertensive chronic kidney disease with stage 1 through stage 4 chronic kidney disease, or unspecified chronic kidney disease

== ENCOUNTER 2022-01-07 13:48 | Inpatient (IN) | payer MEDICARE, OTHER ==
[~2022-01-07] VITALS: Ht 154.9 cm; Wt 79.3 kg
[~2022-01-07 13:48] MED LIST changes: +CEFD300CAP PO; +HYDR-3713 PO
[2022-01-07] MEDS ORDERED: MIRALAX *UNIT DOSE* 17GM PACKET PO PRN (17:20)
[2022-01-07] MEDS ORDERED: ONDANSETRON 4MG TAB PO PRN (17:20)
[2022-01-07] MEDS: LACTOBACILLUS ACIDOPHILUS CAP (BACID) PO SCH ×2 (18:00→21:33)
[2022-01-07 18:28] VITALS: BP 130/60
[2022-01-07 20:00] VITALS: BP 126/66
[2022-01-07] MEDS: DOCUSATE SODIUM 100MG CAPSULE PO SCH (21:32)
[2022-01-07] MEDS: HEPARIN SOD (PORCINE) 5000UNITS/ML 1ML VIAL/SYRINGE SC SCH (21:32)
[2022-01-07] MEDS: METOPROLOL TART 12.5 MG PER 1/2 TAB PO SCH (21:32)
[2022-01-07] MEDS: GABAPENTIN 300 MG CAP PO SCH (21:33)
[2022-01-07] MEDS: ACETAMINOPHEN 500 MG TAB PO SCH (21:33)
[2022-01-07] MEDS: SIMVASTATIN 20 MG TAB PO SCH (21:33)
[2022-01-07] MEDS: SENNA 8.6 MG TAB (SENOKOT) PO SCH (21:33)
[2022-01-07] MEDS: RAMELTEON 8 MG TAB (ROZEREM) PO PRN (21:33)
[2022-01-07] MEDS: REMEDY PHYTOPLEX Z-GUARD PASTE 113GM TUBE (FROM STOREROOM PRODUCT) TOP SCH (21:34)
[2022-01-07] MEDS: PARoxetine 20MG TABLET PO SCH (21:34)
[2022-01-07] MEDS: ADVAIR HFA 115/21MCG INHALER INH SCH (21:50)
[2022-01-07] MEDS: COMBIVENT RESPIMAT 100-20MCG INHALER 4GM INH SCH (21:51)
[2022-01-07] MEDS: oxyCODONE 5MG TAB PO PRN (23:31)
[2022-01-08 06:00] VITALS: BP 118/76
[2022-01-08 06:03] LABS: BASO # 0.1 10^3/uL (0.0-0.2); BASO % 0.8 % (0.0-1.0); EOS # 0.3 10^3/uL (0.0-0.5); EOS % 4.2 % (0.0-3.0); HEMATOCRIT 31.3 % (36.0-47.0); LYMPH # 1.6 10^3/uL (1.5-5.0); LYMPH % 22.7 % (24.0-44.0); MEAN CORPUSCULAR HEMOGLOBIN 29.5 pg (27.0-33.0); MEAN CORPUSCULAR HGB CONC 31.9 g/dl (32.0-36.5); MEAN CORPUSCULAR VOLUME 92.3 fl (80.0-96.0); MONO # 0.7 10^3/uL (0.0-0.8); MONO % 10.1 % (2.0-8.0); NEUTROPHILS # 4.4 10^3/uL (1.5-8.5); NEUTROPHILS % 61.5 % (36.0-66.0); PLATELET COUNT, AUTOMATED 334 10^3/uL (150-450); RED BLOOD COUNT 3.39 10^6/uL (4.00-5.40); WHITE BLOOD COUNT 7.2 10^3/uL (4.0-10.0)
[2022-01-08] MEDS: HEPARIN SOD (PORCINE) 5000UNITS/ML 1ML VIAL/SYRINGE SC SCH ×3 (06:20→21:12)
[2022-01-08] MEDS: LEVOTHYROXINE 100MCG TABLET (0.1MG) PO SCH (06:20)
[2022-01-08] MEDS: oxyCODONE 5MG TAB PO PRN ×2 (06:29→11:48)
[2022-01-08 06:34] LABS: ALBUMIN 2.7 GM/DL (3.2-5.2); BILIRUBIN,TOTAL 0.4 MG/DL (0.2-1.0); CALCIUM LEVEL 9.6 MG/DL (8.8-10.2); CREATININE FOR GFR 2.12 MG/DL (0.55-1.30); GLOMERULAR FILTRATION RATE 23.9 (>39); POTASSIUM SERUM 4.1 MEQ/L (3.5-5.1)
[2022-01-08] MEDS: PANTOPRAZOLE 40MG TAB (PROTONIX) PO SCH (08:34)
[2022-01-08] MEDS: GABAPENTIN 300 MG CAP PO SCH ×2 (08:34→21:18)
[2022-01-08] MEDS: LACTOBACILLUS ACIDOPHILUS CAP (BACID) PO SCH ×4 (08:34→21:11)
[2022-01-08] MEDS: METOPROLOL TART 12.5 MG PER 1/2 TAB PO SCH ×2 (08:39→21:12)
[2022-01-08] MEDS: ASCORBIC ACID 500 MG TAB PO SCH (08:40)
[2022-01-08] MEDS: DOCUSATE SODIUM 100MG CAPSULE PO SCH ×2 (08:40→21:11)
[2022-01-08] MEDS: CYANOCOBALAMIN 500 MCG TAB PO SCH (08:40)
[2022-01-08] MEDS: ACETAMINOPHEN 500 MG TAB PO SCH ×3 (08:40→21:12)
[2022-01-08] MEDS: REMEDY PHYTOPLEX Z-GUARD PASTE 113GM TUBE (FROM STOREROOM PRODUCT) TOP SCH ×3 (08:41→21:14)
[2022-01-08] MEDS: ADVAIR HFA 115/21MCG INHALER INH SCH ×2 (08:56→20:37)
[2022-01-08] MEDS: COMBIVENT RESPIMAT 100-20MCG INHALER 4GM INH SCH ×3 (08:56→20:37)
[2022-01-08] MEDS ORDERED: NS 1,000 ML IV SCH (11:00)
[2022-01-08] MEDS ORDERED: PILL CUTTER 1 EACH XX PRN (13:30)
[2022-01-08 14:00] VITALS: BP 124/72
[2022-01-08] MEDS ORDERED: HOME MED LIST COMPLETE! XX SCH (14:25)
[2022-01-08] MEDS ORDERED: oxyCODONE 5MG TAB PO PRN (16:00)
[2022-01-08] MEDS: CEFDINIR 300 MG CAP (OMNICEF) PO SCH (17:36)
[2022-01-08 20:00] VITALS: BP 127/68
[2022-01-08] MEDS: SIMVASTATIN 20 MG TAB PO SCH (21:11)
[2022-01-08] MEDS: SENNA 8.6 MG TAB (SENOKOT) PO SCH (21:11)
[2022-01-08] MEDS: PARoxetine 20MG TABLET PO SCH (21:11)
[2022-01-09] MEDS: ACETAMINOPHEN 500 MG TAB PO SCH ×3 (04:23→19:57)
[2022-01-09] MEDS: LEVOTHYROXINE 100MCG TABLET (0.1MG) PO SCH (05:11)
[2022-01-09] MEDS: HEPARIN SOD (PORCINE) 5000UNITS/ML 1ML VIAL/SYRINGE SC SCH ×3 (05:11→21:25)
[2022-01-09] MEDS ORDERED: oxyCODONE 5MG TAB PO ONE (08:25)
[2022-01-09] MEDS: COMBIVENT RESPIMAT 100-20MCG INHALER 4GM INH SCH ×3 (08:57→20:00)
[2022-01-09] MEDS: ADVAIR HFA 115/21MCG INHALER INH SCH ×2 (08:57→20:48)
[2022-01-09] MEDS: LACTOBACILLUS ACIDOPHILUS CAP (BACID) PO SCH ×4 (09:02→19:56)
[2022-01-09] MEDS: METOPROLOL TART 12.5 MG PER 1/2 TAB PO SCH ×2 (09:04→19:58)
[2022-01-09] MEDS: DOCUSATE SODIUM 100MG CAPSULE PO SCH ×2 (09:05→19:56)
[2022-01-09] MEDS: PANTOPRAZOLE 40MG TAB (PROTONIX) PO SCH (09:05)
[2022-01-09] MEDS: ASCORBIC ACID 500 MG TAB PO SCH (09:06)
[2022-01-09] MEDS: LIDOCAINE 5% (LIDODERM) PATCH TD SCH ×2 (09:06→19:58)
[2022-01-09] MEDS: CYANOCOBALAMIN 500 MCG TAB PO SCH (09:07)
[2022-01-09] MEDS: GABAPENTIN 300 MG CAP PO SCH ×2 (09:07→19:56)
[2022-01-09] MEDS: REMEDY PHYTOPLEX Z-GUARD PASTE 113GM TUBE (FROM STOREROOM PRODUCT) TOP SCH ×3 (09:07→19:58)
[2022-01-09] MEDS ORDERED: SODIUM CHLORIDE 0.9% INJ 10 ML SYR IV PRN (12:10)
[2022-01-09] MEDS: SODIUM CHLORIDE 0.9% INJ 10 ML SYR IV SCH (13:32)
[2022-01-09 14:00] VITALS: BP 132/64
[2022-01-09] MEDS: CEFDINIR 300 MG CAP (OMNICEF) PO SCH (17:24)
[2022-01-09] MEDS: SENNA 8.6 MG TAB (SENOKOT) PO SCH (19:56)
[2022-01-09] MEDS: SIMVASTATIN 20 MG TAB PO SCH (19:56)
[2022-01-09] MEDS: PARoxetine 20MG TABLET PO SCH (19:57)
[2022-01-09 20:00] VITALS: BP 140/62
[2022-01-09 20:09] LABS: CALCIUM LEVEL 9.7 MG/DL (8.8-10.2); CREATININE FOR GFR 2.29 MG/DL (0.55-1.30); GLOMERULAR FILTRATION RATE 21.9 (>39); POTASSIUM SERUM 3.8 MEQ/L (3.5-5.1)
[2022-01-09] MEDS: RAMELTEON 8 MG TAB (ROZEREM) PO PRN (21:26)
[2022-01-10 06:00] VITALS: BP 148/77
[2022-01-10] MEDS: LEVOTHYROXINE 100MCG TABLET (0.1MG) PO SCH (06:24)
[2022-01-10] MEDS: HEPARIN SOD (PORCINE) 5000UNITS/ML 1ML VIAL/SYRINGE SC SCH ×3 (06:24→20:55)
[2022-01-10] MEDS: ADVAIR HFA 115/21MCG INHALER INH SCH ×3 (08:00→20:38)
[2022-01-10] MEDS: COMBIVENT RESPIMAT 100-20MCG INHALER 4GM INH SCH ×4 (08:00→20:00)
[2022-01-10] MEDS: DOCUSATE SODIUM 100MG CAPSULE PO SCH ×2 (09:00→20:46)
[2022-01-10] MEDS: METOPROLOL TART 12.5 MG PER 1/2 TAB PO SCH ×2 (09:02→20:46)
[2022-01-10] MEDS: LACTOBACILLUS ACIDOPHILUS CAP (BACID) PO SCH ×4 (09:02→20:45)
[2022-01-10] MEDS: GABAPENTIN 300 MG CAP PO SCH ×2 (09:02→20:45)
[2022-01-10] MEDS: ACETAMINOPHEN 500 MG TAB PO SCH ×3 (09:02→20:45)
[2022-01-10] MEDS: ASCORBIC ACID 500 MG TAB PO SCH (09:02)
[2022-01-10] MEDS: LIDOCAINE 5% (LIDODERM) PATCH TD SCH (09:02)
[2022-01-10] MEDS: PANTOPRAZOLE 40MG TAB (PROTONIX) PO SCH (09:02)
[2022-01-10] MEDS: REMEDY PHYTOPLEX Z-GUARD PASTE 113GM TUBE (FROM STOREROOM PRODUCT) TOP SCH ×3 (09:03→20:48)
[2022-01-10] MEDS: CYANOCOBALAMIN 500 MCG TAB PO SCH (09:03)
[2022-01-10] MEDS: SODIUM CHLORIDE 0.9% INJ 10 ML SYR IV SCH (13:14)
[2022-01-10 14:00] VITALS: BP 119/59
[2022-01-10] MEDS: LR 1,000 ML IV SCH (16:54)
[2022-01-10 20:00] VITALS: BP 112/58
[2022-01-10] MEDS: SIMVASTATIN 20 MG TAB PO SCH (20:46)
[2022-01-10] MEDS: PARoxetine 20MG TABLET PO SCH (20:46)
[2022-01-10] MEDS: SENNA 8.6 MG TAB (SENOKOT) PO SCH (20:47)
[2022-01-11] MEDS: HEPARIN SOD (PORCINE) 5000UNITS/ML 1ML VIAL/SYRINGE SC SCH ×3 (05:34→20:23)
[2022-01-11] MEDS: LEVOTHYROXINE 100MCG TABLET (0.1MG) PO SCH (05:34)
[2022-01-11 06:00] VITALS: BP 100/64
[2022-01-11] MEDS: LR 1,000 ML IV SCH (06:25)
[2022-01-11 07:09] LABS: BASO # 0.1 10^3/uL (0.0-0.2); BASO % 0.8 % (0.0-1.0); EOS # 0.4 10^3/uL (0.0-0.5); EOS % 5.9 % (0.0-3.0); HEMATOCRIT 33.4 % (36.0-47.0); HEMOGLOBIN 10.1 g/dl (12.0-15.5); LYMPH # 1.4 10^3/uL (1.5-5.0); LYMPH % 21.8 % (24.0-44.0); MEAN CORPUSCULAR HEMOGLOBIN 28.9 pg (27.0-33.0); MEAN CORPUSCULAR HGB CONC 30.2 g/dl (32.0-36.5); MEAN CORPUSCULAR VOLUME 95.4 fl (80.0-96.0); MONO # 0.6 10^3/uL (0.0-0.8); MONO % 9.7 % (2.0-8.0); NEUTROPHILS % 60.9 % (36.0-66.0); PLATELET COUNT, AUTOMATED 301 10^3/uL (150-450); WHITE BLOOD COUNT 6.6 10^3/uL (4.0-10.0)
[2022-01-11 07:45] LABS: CALCIUM LEVEL 10.1 MG/DL (8.8-10.2); CREATININE FOR GFR 1.76 MG/DL (0.55-1.30); GLOMERULAR FILTRATION RATE 29.7 (>39); POTASSIUM SERUM 4.6 MEQ/L (3.5-5.1)
[2022-01-11] MEDS: COMBIVENT RESPIMAT 100-20MCG INHALER 4GM INH SCH ×3 (08:13→20:00)
[2022-01-11] MEDS: ADVAIR HFA 115/21MCG INHALER INH SCH ×2 (08:13→20:57)
[2022-01-11] MEDS: PANTOPRAZOLE 40MG TAB (PROTONIX) PO SCH (08:35)
[2022-01-11] MEDS: LACTOBACILLUS ACIDOPHILUS CAP (BACID) PO SCH ×4 (08:35→20:23)
[2022-01-11] MEDS: CYANOCOBALAMIN 500 MCG TAB PO SCH (08:36)
[2022-01-11] MEDS: ASCORBIC ACID 500 MG TAB PO SCH (08:36)
[2022-01-11] MEDS: GABAPENTIN 300 MG CAP PO SCH ×2 (08:36→20:25)
[2022-01-11] MEDS: ACETAMINOPHEN 500 MG TAB PO SCH ×3 (08:37→20:25)
[2022-01-11] MEDS: LIDOCAINE 5% (LIDODERM) PATCH TD SCH (08:37)
[2022-01-11] MEDS: REMEDY PHYTOPLEX Z-GUARD PASTE 113GM TUBE (FROM STOREROOM PRODUCT) TOP SCH ×3 (08:38→20:26)
[2022-01-11] MEDS: DOCUSATE SODIUM 100MG CAPSULE PO SCH ×2 (08:39→20:25)
[2022-01-11] MEDS: METOPROLOL TART 12.5 MG PER 1/2 TAB PO SCH ×2 (08:39→20:24)
[2022-01-11] MEDS: oxyCODONE 5MG TAB PO PRN (11:15)
[2022-01-11] MEDS: SODIUM CHLORIDE 0.9% INJ 10 ML SYR IV SCH (11:18)
[2022-01-11 14:00] VITALS: BP 146/72
[2022-01-11 20:00] VITALS: BP 150/68
[2022-01-11] MEDS: PARoxetine 20MG TABLET PO SCH (20:23)
[2022-01-11] MEDS: SIMVASTATIN 20 MG TAB PO SCH (20:24)
[2022-01-11] MEDS: SENNA 8.6 MG TAB (SENOKOT) PO SCH (20:25)
[2022-01-12] MEDS: oxyCODONE 5MG TAB PO PRN (01:35)
[2022-01-12] MEDS: LEVOTHYROXINE 100MCG TABLET (0.1MG) PO SCH (05:42)
[2022-01-12] MEDS: HEPARIN SOD (PORCINE) 5000UNITS/ML 1ML VIAL/SYRINGE SC SCH ×3 (05:43→21:45)
[2022-01-12 06:00] VITALS: BP 156/62
[2022-01-12] MEDS: COMBIVENT RESPIMAT 100-20MCG INHALER 4GM INH SCH ×3 (08:00→21:03)
[2022-01-12] MEDS: DOCUSATE SODIUM 100MG CAPSULE PO SCH ×2 (08:21→20:41)
[2022-01-12] MEDS: ASCORBIC ACID 500 MG TAB PO SCH (08:22)
[2022-01-12] MEDS: ACETAMINOPHEN 500 MG TAB PO SCH ×3 (08:22→20:40)
[2022-01-12] MEDS: LACTOBACILLUS ACIDOPHILUS CAP (BACID) PO SCH ×4 (08:23→20:40)
[2022-01-12] MEDS: PANTOPRAZOLE 40MG TAB (PROTONIX) PO SCH (08:23)
[2022-01-12] MEDS: CYANOCOBALAMIN 500 MCG TAB PO SCH (08:23)
[2022-01-12] MEDS: METOPROLOL TART 12.5 MG PER 1/2 TAB PO SCH ×2 (08:23→20:41)
[2022-01-12] MEDS: LIDOCAINE 5% (LIDODERM) PATCH TD SCH (08:24)
[2022-01-12] MEDS: GABAPENTIN 300 MG CAP PO SCH ×2 (08:25→20:41)
[2022-01-12] MEDS: REMEDY PHYTOPLEX Z-GUARD PASTE 113GM TUBE (FROM STOREROOM PRODUCT) TOP SCH ×3 (09:00→20:42)
[2022-01-12] MEDS: ADVAIR HFA 115/21MCG INHALER INH SCH ×2 (09:33→21:03)
[2022-01-12] MEDS: SODIUM CHLORIDE 0.9% INJ 10 ML SYR IV SCH (12:05)
[2022-01-12 14:00] VITALS: BP 128/60
[2022-01-12 20:00] VITALS: BP 136/65
[2022-01-12] MEDS: SENNA 8.6 MG TAB (SENOKOT) PO SCH (20:40)
[2022-01-12] MEDS: SIMVASTATIN 20 MG TAB PO SCH (20:40)
[2022-01-12] MEDS: PARoxetine 20MG TABLET PO SCH (20:41)
[2022-01-13] MEDS: LEVOTHYROXINE 100MCG TABLET (0.1MG) PO SCH (05:37)
[2022-01-13] MEDS: HEPARIN SOD (PORCINE) 5000UNITS/ML 1ML VIAL/SYRINGE SC SCH ×3 (05:37→21:19)
[2022-01-13 06:00] VITALS: BP 169/77
[2022-01-13] MEDS: METOPROLOL TART 12.5 MG PER 1/2 TAB PO SCH (06:23)
[2022-01-13 06:40] LABS: BASO # 0.1 10^3/uL (0.0-0.2); BASO % 1.1 % (0.0-1.0); EOS # 0.3 10^3/uL (0.0-0.5); HEMATOCRIT 32.1 % (36.0-47.0); LYMPH # 1.6 10^3/uL (1.5-5.0); LYMPH % 23.2 % (24.0-44.0); MEAN CORPUSCULAR HEMOGLOBIN 29.4 pg (27.0-33.0); MEAN CORPUSCULAR HGB CONC 31.2 g/dl (32.0-36.5); MEAN CORPUSCULAR VOLUME 94.4 fl (80.0-96.0); MONO # 0.7 10^3/uL (0.0-0.8); MONO % 9.6 % (2.0-8.0); NEUTROPHILS # 4.3 10^3/uL (1.5-8.5); PLATELET COUNT, AUTOMATED 329 10^3/uL (150-450); WHITE BLOOD COUNT 7.1 10^3/uL (4.0-10.0)
[2022-01-13 07:13] LABS: CALCIUM LEVEL 9.9 MG/DL (8.8-10.2); CREATININE FOR GFR 1.73 MG/DL (0.55-1.30); GLOMERULAR FILTRATION RATE 30.2 (>39); POTASSIUM SERUM 4.7 MEQ/L (3.5-5.1)
[2022-01-13] MEDS: ADVAIR HFA 115/21MCG INHALER INH SCH ×2 (07:13→20:02)
[2022-01-13] MEDS: COMBIVENT RESPIMAT 100-20MCG INHALER 4GM INH SCH ×3 (07:13→20:02)
[2022-01-13] MEDS: GABAPENTIN 300 MG CAP PO SCH ×2 (09:10→21:20)
[2022-01-13] MEDS: CYANOCOBALAMIN 500 MCG TAB PO SCH (09:10)
[2022-01-13] MEDS: LACTOBACILLUS ACIDOPHILUS CAP (BACID) PO SCH ×4 (09:10→21:20)
[2022-01-13] MEDS: ACETAMINOPHEN 500 MG TAB PO SCH ×3 (09:11→21:20)
[2022-01-13] MEDS: DOCUSATE SODIUM 100MG CAPSULE PO SCH ×2 (09:11→21:19)
[2022-01-13] MEDS: PANTOPRAZOLE 40MG TAB (PROTONIX) PO SCH (09:11)
[2022-01-13] MEDS: ASCORBIC ACID 500 MG TAB PO SCH (09:11)
[2022-01-13] MEDS: LIDOCAINE 5% (LIDODERM) PATCH TD SCH (09:12)
[2022-01-13] MEDS: REMEDY PHYTOPLEX Z-GUARD PASTE 113GM TUBE (FROM STOREROOM PRODUCT) TOP SCH ×3 (09:12→21:23)
[2022-01-13] MEDS: SODIUM CHLORIDE 0.9% INJ 10 ML SYR IV SCH (12:10)
[2022-01-13 14:00] VITALS: BP 130/84
[2022-01-13] MEDS ORDERED: oxyCODONE 5MG TAB PO PRN (14:10)
[2022-01-13] MEDS ORDERED: METOPROLOL TART 25 MG TABLET PO SCH (16:00)
[2022-01-13 20:00] VITALS: BP 138/80
[2022-01-13] MEDS: RAMELTEON 8 MG TAB (ROZEREM) PO PRN (20:00)
[2022-01-13] MEDS: SENNA 8.6 MG TAB (SENOKOT) PO SCH (21:19)
[2022-01-13] MEDS: METOPROLOL TART 25 MG TABLET PO SCH (21:19)
[2022-01-13] MEDS: PARoxetine 20MG TABLET PO SCH (21:20)
[2022-01-13] MEDS: SIMVASTATIN 20 MG TAB PO SCH (21:22)
[2022-01-14] MEDS: LEVOTHYROXINE 100MCG TABLET (0.1MG) PO SCH (05:42)
[2022-01-14] MEDS: HEPARIN SOD (PORCINE) 5000UNITS/ML 1ML VIAL/SYRINGE SC SCH ×3 (05:42→21:21)
[2022-01-14 06:00] VITALS: BP 140/84
[2022-01-14] MEDS: COMBIVENT RESPIMAT 100-20MCG INHALER 4GM INH SCH ×3 (07:22→21:05)
[2022-01-14] MEDS: ADVAIR HFA 115/21MCG INHALER INH SCH ×2 (07:22→21:05)
[2022-01-14] MEDS: PANTOPRAZOLE 40MG TAB (PROTONIX) PO SCH (08:54)
[2022-01-14] MEDS: LACTOBACILLUS ACIDOPHILUS CAP (BACID) PO SCH ×4 (08:54→21:16)
[2022-01-14] MEDS: ASCORBIC ACID 500 MG TAB PO SCH (08:55)
[2022-01-14] MEDS: DOCUSATE SODIUM 100MG CAPSULE PO SCH ×2 (08:55→21:14)
[2022-01-14] MEDS: CYANOCOBALAMIN 500 MCG TAB PO SCH (08:55)
[2022-01-14] MEDS: ACETAMINOPHEN 500 MG TAB PO SCH ×3 (08:55→21:16)
[2022-01-14] MEDS: LIDOCAINE 5% (LIDODERM) PATCH TD SCH (08:56)
[2022-01-14] MEDS: REMEDY PHYTOPLEX Z-GUARD PASTE 113GM TUBE (FROM STOREROOM PRODUCT) TOP SCH ×3 (08:56→21:18)
[2022-01-14] MEDS: GABAPENTIN 300 MG CAP PO SCH ×2 (08:56→21:16)
[2022-01-14] MEDS: METOPROLOL TART 25 MG TABLET PO SCH ×2 (08:59→20:53)
[2022-01-14] MEDS ORDERED: VARIBAR PUDDING 40% w/v 230ML TUBE As Ordered ONE (10:14)
[2022-01-14] MEDS ORDERED: VARIBAR NECTAR 40% w/v 240ML SUSP BTL As Ordered ONE (10:14)
[2022-01-14] MEDS ORDERED: BARIUM SULFATE 700 MG TABLET (E-Z-DISK) As Ordered ONE (10:15)
[2022-01-14] MEDS ORDERED: E-Z-PAQUE 96% w/w SUSP 176GM BTL As Ordered ONE (10:15)
[2022-01-14] MEDS: SODIUM CHLORIDE 0.9% INJ 10 ML SYR IV SCH (13:01)
[2022-01-14 14:00] VITALS: BP 134/62
[2022-01-14] MEDS: oxyCODONE 5MG TAB PO SCH ×2 (17:28→21:14)
[2022-01-14 18:00] VITALS: BP 108/59
[2022-01-14] MEDS: SENNA 8.6 MG TAB (SENOKOT) PO SCH (21:14)
[2022-01-14] MEDS: RAMELTEON 8 MG TAB (ROZEREM) PO PRN (21:15)
[2022-01-14] MEDS: SIMVASTATIN 20 MG TAB PO SCH (21:16)
[2022-01-14] MEDS: PARoxetine 20MG TABLET PO SCH (21:17)
[2022-01-15 05:54] LABS: BASO # 0.1 10^3/uL (0.0-0.2); BASO % 0.9 % (0.0-1.0); EOS # 0.4 10^3/uL (0.0-0.5); EOS % 3.9 % (0.0-3.0); HEMATOCRIT 33.1 % (36.0-47.0); HEMOGLOBIN 10.3 g/dl (12.0-15.5); LYMPH % 21.6 % (24.0-44.0); MEAN CORPUSCULAR HEMOGLOBIN 29.8 pg (27.0-33.0); MEAN CORPUSCULAR HGB CONC 31.1 g/dl (32.0-36.5); MEAN CORPUSCULAR VOLUME 95.7 fl (80.0-96.0); MONO # 0.8 10^3/uL (0.0-0.8); MONO % 8.9 % (2.0-8.0); NEUTROPHILS # 5.9 10^3/uL (1.5-8.5); PLATELET COUNT, AUTOMATED 327 10^3/uL (150-450); RED BLOOD COUNT 3.46 10^6/uL (4.00-5.40); WHITE BLOOD COUNT 9.2 10^3/uL (4.0-10.0)
[2022-01-15 06:00] VITALS: BP 126/78
[2022-01-15] MEDS: LEVOTHYROXINE 100MCG TABLET (0.1MG) PO SCH (06:07)
[2022-01-15] MEDS: HEPARIN SOD (PORCINE) 5000UNITS/ML 1ML VIAL/SYRINGE SC SCH ×3 (06:08→22:00)
[2022-01-15 06:27] LABS: CALCIUM LEVEL 9.9 MG/DL (8.8-10.2); CREATININE FOR GFR 1.99 MG/DL (0.55-1.30); GLOMERULAR FILTRATION RATE 25.7 (>39); POTASSIUM SERUM 5.2 MEQ/L (3.5-5.1)
[2022-01-15] MEDS: COMBIVENT RESPIMAT 100-20MCG INHALER 4GM INH SCH ×3 (07:21→20:00)
[2022-01-15] MEDS: ADVAIR HFA 115/21MCG INHALER INH SCH ×2 (07:21→21:21)
[2022-01-15] MEDS: ASCORBIC ACID 500 MG TAB PO SCH (08:17)
[2022-01-15] MEDS: oxyCODONE 5MG TAB PO SCH ×3 (08:17→20:43)
[2022-01-15] MEDS: ACETAMINOPHEN 500 MG TAB PO SCH ×3 (08:17→20:42)
[2022-01-15] MEDS: CYANOCOBALAMIN 500 MCG TAB PO SCH (08:17)
[2022-01-15] MEDS: DOCUSATE SODIUM 100MG CAPSULE PO SCH ×2 (08:18→20:41)
[2022-01-15] MEDS: GABAPENTIN 300 MG CAP PO SCH ×2 (08:18→20:40)
[2022-01-15] MEDS: LACTOBACILLUS ACIDOPHILUS CAP (BACID) PO SCH ×4 (08:18→20:40)
[2022-01-15] MEDS: PANTOPRAZOLE 40MG TAB (PROTONIX) PO SCH (08:18)
[2022-01-15] MEDS: METOPROLOL TART 25 MG TABLET PO SCH ×2 (08:20→20:42)
[2022-01-15] MEDS: LIDOCAINE 5% (LIDODERM) PATCH TD SCH (08:25)
[2022-01-15] MEDS ORDERED: PATIROMER SORBITEX CALCIUM 8.4 GM POWDER PACKET (VELTASSA) PO ONE (09:00)
[2022-01-15] MEDS: REMEDY PHYTOPLEX Z-GUARD PASTE 113GM TUBE (FROM STOREROOM PRODUCT) TOP SCH ×3 (10:17→20:43)
[2022-01-15] MEDS: SODIUM CHLORIDE 0.9% INJ 10 ML SYR IV SCH (11:22)
[2022-01-15 14:00] VITALS: BP 110/63
[2022-01-15 20:00] VITALS: BP 136/82
[2022-01-15] MEDS: SIMVASTATIN 20 MG TAB PO SCH (20:40)
[2022-01-15] MEDS: SENNA 8.6 MG TAB (SENOKOT) PO SCH (20:40)
[2022-01-15] MEDS: PARoxetine 20MG TABLET PO SCH (20:41)
[2022-01-15] MEDS: RAMELTEON 8 MG TAB (ROZEREM) PO PRN (20:42)
[2022-01-16] MEDS: LEVOTHYROXINE 100MCG TABLET (0.1MG) PO SCH (05:57)
[2022-01-16] MEDS: HEPARIN SOD (PORCINE) 5000UNITS/ML 1ML VIAL/SYRINGE SC SCH ×3 (05:57→21:04)
[2022-01-16] MEDS: ADVAIR HFA 115/21MCG INHALER INH SCH ×2 (07:26→21:00)
[2022-01-16] MEDS: COMBIVENT RESPIMAT 100-20MCG INHALER 4GM INH SCH ×3 (07:27→20:00)
[2022-01-16 08:20] LABS: CREATININE FOR GFR 1.93 MG/DL (0.55-1.30); GLOMERULAR FILTRATION RATE 26.7 (>39); POTASSIUM SERUM 4.8 MEQ/L (3.5-5.1)
[2022-01-16] MEDS: REMEDY PHYTOPLEX Z-GUARD PASTE 113GM TUBE (FROM STOREROOM PRODUCT) TOP SCH ×3 (09:00→20:54)
[2022-01-16] MEDS: LACTOBACILLUS ACIDOPHILUS CAP (BACID) PO SCH ×4 (09:05→20:51)
[2022-01-16] MEDS: DOCUSATE SODIUM 100MG CAPSULE PO SCH ×2 (09:05→20:51)
[2022-01-16] MEDS: GABAPENTIN 300 MG CAP PO SCH ×2 (09:06→20:51)
[2022-01-16] MEDS: PANTOPRAZOLE 40MG TAB (PROTONIX) PO SCH (09:06)
[2022-01-16] MEDS: oxyCODONE 5MG TAB PO SCH ×3 (09:06→20:50)
[2022-01-16] MEDS: METOPROLOL TART 25 MG TABLET PO SCH ×2 (09:06→20:52)
[2022-01-16] MEDS: CYANOCOBALAMIN 500 MCG TAB PO SCH (09:07)
[2022-01-16] MEDS: ASCORBIC ACID 500 MG TAB PO SCH (09:07)
[2022-01-16] MEDS: ACETAMINOPHEN 500 MG TAB PO SCH ×3 (09:07→20:49)
[2022-01-16] MEDS: LIDOCAINE 5% (LIDODERM) PATCH TD SCH (09:08)
[2022-01-16] MEDS: SODIUM CHLORIDE 0.9% INJ 10 ML SYR IV SCH (12:10)
[2022-01-16 14:00] VITALS: BP 142/66
[2022-01-16 20:00] VITALS: BP 128/69
[2022-01-16] MEDS: PARoxetine 20MG TABLET PO SCH (20:49)
[2022-01-16] MEDS: SIMVASTATIN 20 MG TAB PO SCH (20:49)
[2022-01-16] MEDS: SENNA 8.6 MG TAB (SENOKOT) PO SCH (20:51)
[2022-01-17] MEDS: LEVOTHYROXINE 100MCG TABLET (0.1MG) PO SCH (05:36)
[2022-01-17] MEDS: HEPARIN SOD (PORCINE) 5000UNITS/ML 1ML VIAL/SYRINGE SC SCH ×3 (05:36→21:58)
[2022-01-17 06:00] VITALS: BP 161/68
[2022-01-17] MEDS: COMBIVENT RESPIMAT 100-20MCG INHALER 4GM INH SCH ×3 (07:23→20:27)
[2022-01-17] MEDS: ADVAIR HFA 115/21MCG INHALER INH SCH ×2 (07:23→20:28)
[2022-01-17] MEDS: oxyCODONE 5MG TAB PO SCH ×3 (08:42→20:15)
[2022-01-17] MEDS: LIDOCAINE 5% (LIDODERM) PATCH TD SCH (08:43)
[2022-01-17] MEDS: ACETAMINOPHEN 500 MG TAB PO SCH ×3 (08:43→20:15)
[2022-01-17] MEDS: METOPROLOL TART 25 MG TABLET PO SCH ×2 (08:44→20:16)
[2022-01-17] MEDS: ASCORBIC ACID 500 MG TAB PO SCH (08:44)
[2022-01-17] MEDS: LACTOBACILLUS ACIDOPHILUS CAP (BACID) PO SCH ×4 (08:44→20:17)
[2022-01-17] MEDS: CYANOCOBALAMIN 500 MCG TAB PO SCH (08:44)
[2022-01-17] MEDS: DOCUSATE SODIUM 100MG CAPSULE PO SCH ×2 (08:44→20:17)
[2022-01-17] MEDS: PANTOPRAZOLE 40MG TAB (PROTONIX) PO SCH (08:45)
[2022-01-17] MEDS: REMEDY PHYTOPLEX Z-GUARD PASTE 113GM TUBE (FROM STOREROOM PRODUCT) TOP SCH ×3 (08:45→20:17)
[2022-01-17] MEDS: GABAPENTIN 300 MG CAP PO SCH ×2 (08:45→20:16)
[2022-01-17 14:00] VITALS: BP 123/58
[2022-01-17 20:00] VITALS: BP 134/84
[2022-01-17] MEDS: RAMELTEON 8 MG TAB (ROZEREM) PO PRN (20:15)
[2022-01-17] MEDS: SIMVASTATIN 20 MG TAB PO SCH (20:16)
[2022-01-17] MEDS: SENNA 8.6 MG TAB (SENOKOT) PO SCH (20:16)
[2022-01-17] MEDS: PARoxetine 20MG TABLET PO SCH (20:16)
[2022-01-18] MEDS: HEPARIN SOD (PORCINE) 5000UNITS/ML 1ML VIAL/SYRINGE SC SCH ×3 (05:19→22:00)
[2022-01-18] MEDS: LEVOTHYROXINE 100MCG TABLET (0.1MG) PO SCH (05:32)
[2022-01-18 06:00] VITALS: BP 142/82
[2022-01-18] MEDS: LIDOCAINE 5% (LIDODERM) PATCH TD SCH (07:30)
[2022-01-18] MEDS: DOCUSATE SODIUM 100MG CAPSULE PO SCH ×2 (07:31→20:48)
[2022-01-18] MEDS: LACTOBACILLUS ACIDOPHILUS CAP (BACID) PO SCH ×4 (07:31→20:48)
[2022-01-18] MEDS: PANTOPRAZOLE 40MG TAB (PROTONIX) PO SCH (07:31)
[2022-01-18] MEDS: CYANOCOBALAMIN 500 MCG TAB PO SCH (07:31)
[2022-01-18] MEDS: ACETAMINOPHEN 500 MG TAB PO SCH ×3 (07:32→20:48)
[2022-01-18] MEDS: oxyCODONE 5MG TAB PO SCH ×3 (07:32→19:24)
[2022-01-18] MEDS: ASCORBIC ACID 500 MG TAB PO SCH (07:32)
[2022-01-18] MEDS: METOPROLOL TART 25 MG TABLET PO SCH ×2 (07:33→20:49)
[2022-01-18] MEDS: REMEDY PHYTOPLEX Z-GUARD PASTE 113GM TUBE (FROM STOREROOM PRODUCT) TOP SCH ×3 (07:33→20:50)
[2022-01-18] MEDS: GABAPENTIN 300 MG CAP PO SCH ×2 (07:33→20:48)
[2022-01-18] MEDS: COMBIVENT RESPIMAT 100-20MCG INHALER 4GM INH SCH ×3 (08:00→21:01)
[2022-01-18] MEDS: ADVAIR HFA 115/21MCG INHALER INH SCH ×2 (08:51→21:00)
[2022-01-18 10:20] LABS: BASO # 0.1 10^3/uL (0.0-0.2); BASO % 0.8 % (0.0-1.0); EOS # 0.3 10^3/uL (0.0-0.5); EOS % 2.5 % (0.0-3.0); HEMOGLOBIN 10.3 g/dl (12.0-15.5); LYMPH # 1.1 10^3/uL (1.5-5.0); LYMPH % 10.8 % (24.0-44.0); MEAN CORPUSCULAR HEMOGLOBIN 30.1 pg (27.0-33.0); MEAN CORPUSCULAR HGB CONC 31.2 g/dl (32.0-36.5); MEAN CORPUSCULAR VOLUME 96.5 fl (80.0-96.0); MONO # 0.8 10^3/uL (0.0-0.8); MONO % 7.4 % (2.0-8.0); NEUTROPHILS # 8.2 10^3/uL (1.5-8.5); NEUTROPHILS % 77.6 % (36.0-66.0); PLATELET COUNT, AUTOMATED 320 10^3/uL (150-450); RED BLOOD COUNT 3.42 10^6/uL (4.00-5.40); WHITE BLOOD COUNT 10.6 10^3/uL (4.0-10.0)
[2022-01-18 10:58] LABS: CALCIUM LEVEL 9.4 MG/DL (8.8-10.2); CREATININE FOR GFR 1.98 MG/DL (0.55-1.30); GLOMERULAR FILTRATION RATE 25.9 (>39); POTASSIUM SERUM 4.7 MEQ/L (3.5-5.1)
[2022-01-18 14:00] VITALS: BP 145/67
[2022-01-18 20:00] VITALS: BP 140/86
[2022-01-18] MEDS: SIMVASTATIN 20 MG TAB PO SCH (20:48)
[2022-01-18] MEDS: SENNA 8.6 MG TAB (SENOKOT) PO SCH (20:48)
[2022-01-18] MEDS: RAMELTEON 8 MG TAB (ROZEREM) PO PRN (20:48)
[2022-01-18] MEDS: PARoxetine 20MG TABLET PO SCH (20:50)
[2022-01-19] MEDS: LEVOTHYROXINE 100MCG TABLET (0.1MG) PO SCH (05:26)
[2022-01-19] MEDS: HEPARIN SOD (PORCINE) 5000UNITS/ML 1ML VIAL/SYRINGE SC SCH ×3 (05:26→21:20)
[2022-01-19 06:00] VITALS: BP 142/86
[2022-01-19] MEDS: CYANOCOBALAMIN 500 MCG TAB PO SCH (08:33)
[2022-01-19] MEDS: PANTOPRAZOLE 40MG TAB (PROTONIX) PO SCH (08:34)
[2022-01-19] MEDS: GABAPENTIN 300 MG CAP PO SCH ×2 (08:34→20:07)
[2022-01-19] MEDS: METOPROLOL TART 25 MG TABLET PO SCH ×2 (08:34→20:08)
[2022-01-19] MEDS: ACETAMINOPHEN 500 MG TAB PO SCH ×3 (08:34→20:07)
[2022-01-19] MEDS: DOCUSATE SODIUM 100MG CAPSULE PO SCH ×2 (08:34→20:07)
[2022-01-19] MEDS: ASCORBIC ACID 500 MG TAB PO SCH (08:34)
[2022-01-19] MEDS: LACTOBACILLUS ACIDOPHILUS CAP (BACID) PO SCH ×4 (08:34→20:07)
[2022-01-19] MEDS: LIDOCAINE 5% (LIDODERM) PATCH TD SCH (08:35)
[2022-01-19] MEDS: oxyCODONE 5MG TAB PO SCH ×3 (08:35→20:07)
[2022-01-19] MEDS: REMEDY PHYTOPLEX Z-GUARD PASTE 113GM TUBE (FROM STOREROOM PRODUCT) TOP SCH ×3 (08:35→20:08)
[2022-01-19] MEDS: ADVAIR HFA 115/21MCG INHALER INH SCH ×2 (08:47→20:43)
[2022-01-19] MEDS: COMBIVENT RESPIMAT 100-20MCG INHALER 4GM INH SCH ×3 (08:48→20:00)
[2022-01-19] MEDS: LevoFLOXacin 250 MG TABLET PO SCH (10:42)
[2022-01-19 14:00] VITALS: BP 122/58
[2022-01-19 20:00] VITALS: BP 133/66
[2022-01-19] MEDS: PARoxetine 20MG TABLET PO SCH (20:06)
[2022-01-19] MEDS: oxyBUTYnin 5 MG TAB PO SCH (20:06)
[2022-01-19] MEDS: SIMVASTATIN 20 MG TAB PO SCH (20:07)
[2022-01-19] MEDS: SENNA 8.6 MG TAB (SENOKOT) PO SCH (20:07)
[2022-01-19] MEDS: RAMELTEON 8 MG TAB (ROZEREM) PO PRN (21:20)
[2022-01-20] MEDS: LEVOTHYROXINE 100MCG TABLET (0.1MG) PO SCH (05:14)
[2022-01-20] MEDS: HEPARIN SOD (PORCINE) 5000UNITS/ML 1ML VIAL/SYRINGE SC SCH ×3 (05:14→22:06)
[2022-01-20] MEDS: LevoFLOXacin 250 MG TABLET PO SCH (05:14)
[2022-01-20 06:00] VITALS: BP 144/73
[2022-01-20 06:55] LABS: BASO # 0.1 10^3/uL (0.0-0.2); BASO % 1.1 % (0.0-1.0); EOS # 0.2 10^3/uL (0.0-0.5); EOS % 3.9 % (0.0-3.0); HEMATOCRIT 33.1 % (36.0-47.0); HEMOGLOBIN 10.1 g/dl (12.0-15.5); LYMPH # 1.4 10^3/uL (1.5-5.0); MEAN CORPUSCULAR HEMOGLOBIN 29.8 pg (27.0-33.0); MEAN CORPUSCULAR HGB CONC 30.5 g/dl (32.0-36.5); MEAN CORPUSCULAR VOLUME 97.6 fl (80.0-96.0); MONO # 0.6 10^3/uL (0.0-0.8); MONO % 9.1 % (2.0-8.0); NEUTROPHILS # 3.9 10^3/uL (1.5-8.5); NEUTROPHILS % 63.1 % (36.0-66.0); PLATELET COUNT, AUTOMATED 312 10^3/uL (150-450); RED BLOOD COUNT 3.39 10^6/uL (4.00-5.40); WHITE BLOOD COUNT 6.2 10^3/uL (4.0-10.0)
[2022-01-20 07:25] LABS: CALCIUM LEVEL 10.1 MG/DL (8.3-10.6); CREATININE FOR GFR 1.79 MG/DL (0.55-1.30); GLOMERULAR FILTRATION RATE 29.1 (>39)
[2022-01-20] MEDS: DOCUSATE SODIUM 100MG CAPSULE PO SCH ×2 (07:54→22:09)
[2022-01-20] MEDS: CYANOCOBALAMIN 500 MCG TAB PO SCH (07:54)
[2022-01-20] MEDS: METOPROLOL TART 25 MG TABLET PO SCH ×2 (07:54→22:09)
[2022-01-20] MEDS: LACTOBACILLUS ACIDOPHILUS CAP (BACID) PO SCH ×4 (07:54→22:06)
[2022-01-20] MEDS: PANTOPRAZOLE 40MG TAB (PROTONIX) PO SCH (07:54)
[2022-01-20] MEDS: GABAPENTIN 300 MG CAP PO SCH ×2 (07:55→22:09)
[2022-01-20] MEDS: oxyBUTYnin 5 MG TAB PO SCH ×2 (07:55→22:10)
[2022-01-20] MEDS: oxyCODONE 5MG TAB PO SCH ×4 (07:55→22:11)
[2022-01-20] MEDS: ASCORBIC ACID 500 MG TAB PO SCH (07:55)
[2022-01-20] MEDS: REMEDY PHYTOPLEX Z-GUARD PASTE 113GM TUBE (FROM STOREROOM PRODUCT) TOP SCH ×3 (07:56→22:11)
[2022-01-20] MEDS: LIDOCAINE 5% (LIDODERM) PATCH TD SCH (07:56)
[2022-01-20] MEDS: ACETAMINOPHEN 500 MG TAB PO SCH ×4 (07:58→22:10)
[2022-01-20] MEDS: COMBIVENT RESPIMAT 100-20MCG INHALER 4GM INH SCH ×3 (08:07→19:21)
[2022-01-20] MEDS: ADVAIR HFA 115/21MCG INHALER INH SCH ×2 (08:07→19:21)
[2022-01-20 14:00] VITALS: BP 140/65
[2022-01-20 20:00] VITALS: BP 142/70
[2022-01-20] MEDS: SIMVASTATIN 20 MG TAB PO SCH (22:06)
[2022-01-20] MEDS: PARoxetine 20MG TABLET PO SCH (22:08)
[2022-01-20] MEDS: SENNA 8.6 MG TAB (SENOKOT) PO SCH (22:09)
[2022-01-21] MEDS: RAMELTEON 8 MG TAB (ROZEREM) PO PRN ×2 (01:12→21:04)
[2022-01-21] MEDS: LEVOTHYROXINE 100MCG TABLET (0.1MG) PO SCH (06:34)
[2022-01-21] MEDS: HEPARIN SOD (PORCINE) 5000UNITS/ML 1ML VIAL/SYRINGE SC SCH ×3 (06:34→21:05)
[2022-01-21] MEDS: LevoFLOXacin 250 MG TABLET PO SCH (06:34)
[2022-01-21 06:46] VITALS: BP 144/98
[2022-01-21] MEDS: COMBIVENT RESPIMAT 100-20MCG INHALER 4GM INH SCH ×3 (08:00→20:41)
[2022-01-21] MEDS: ADVAIR HFA 115/21MCG INHALER INH SCH ×2 (08:46→20:00)
[2022-01-21] MEDS: LIDOCAINE 5% (LIDODERM) PATCH TD SCH ×2 (09:00→13:53)
[2022-01-21] MEDS: DOCUSATE SODIUM 100MG CAPSULE PO SCH (09:00)
[2022-01-21] MEDS: CYANOCOBALAMIN 500 MCG TAB PO SCH (09:04)
[2022-01-21] MEDS: LACTOBACILLUS ACIDOPHILUS CAP (BACID) PO SCH ×4 (09:04→21:03)
[2022-01-21] MEDS: METOPROLOL TART 25 MG TABLET PO SCH ×2 (09:05→21:04)
[2022-01-21] MEDS: ASCORBIC ACID 500 MG TAB PO SCH (09:05)
[2022-01-21] MEDS: GABAPENTIN 300 MG CAP PO SCH ×2 (09:07→21:05)
[2022-01-21] MEDS: oxyCODONE 5MG TAB PO SCH ×3 (09:07→21:03)
[2022-01-21] MEDS: PANTOPRAZOLE 40MG TAB (PROTONIX) PO SCH (09:07)
[2022-01-21] MEDS: oxyBUTYnin 5 MG TAB PO SCH ×2 (09:07→21:04)
[2022-01-21] MEDS: ACETAMINOPHEN 500 MG TAB PO SCH ×3 (09:09→21:05)
[2022-01-21] MEDS: REMEDY PHYTOPLEX Z-GUARD PASTE 113GM TUBE (FROM STOREROOM PRODUCT) TOP SCH ×3 (12:16→21:05)
[2022-01-21 14:00] VITALS: BP 132/67
[2022-01-21 20:07] VITALS: BP 128/66
[2022-01-21] MEDS: PARoxetine 20MG TABLET PO SCH (21:04)
[2022-01-21] MEDS: SENNA 8.6 MG TAB (SENOKOT) PO SCH (21:04)
[2022-01-21] MEDS: SIMVASTATIN 20 MG TAB PO SCH (21:05)
[2022-01-22 05:05] VITALS: BP 140/66
[2022-01-22] MEDS: HEPARIN SOD (PORCINE) 5000UNITS/ML 1ML VIAL/SYRINGE SC SCH ×3 (05:16→20:36)
[2022-01-22] MEDS: LEVOTHYROXINE 100MCG TABLET (0.1MG) PO SCH (05:16)
[2022-01-22] MEDS: LACTOBACILLUS ACIDOPHILUS CAP (BACID) PO SCH ×4 (08:00→20:38)
[2022-01-22] MEDS ORDERED: OXYC-517 PO ×2 (08:30→08:33)
[2022-01-22] MEDS ORDERED: METO1TAB87 PO (08:30)
[2022-01-22] MEDS ORDERED: GABA-282 PO (08:30)
[2022-01-22] MEDS ORDERED: ADVA115A INH (08:30)
[2022-01-22] MEDS ORDERED: PARO40TA3 PO (08:30)
[2022-01-22] MEDS ORDERED: SIMV20TA22 PO (08:30)
[2022-01-22] MEDS ORDERED: LEVO100T54 PO (08:30)
[2022-01-22] MEDS ORDERED: DICL20GE TP (08:30)
[2022-01-22] MEDS: ADVAIR HFA 115/21MCG INHALER INH SCH ×2 (08:54→20:04)
[2022-01-22] MEDS: COMBIVENT RESPIMAT 100-20MCG INHALER 4GM INH SCH ×3 (08:54→20:04)
[2022-01-22] MEDS: GABAPENTIN 300 MG CAP PO SCH ×2 (10:33→20:28)
[2022-01-22] MEDS: CYANOCOBALAMIN 500 MCG TAB PO SCH (10:35)
[2022-01-22] MEDS: ACETAMINOPHEN 500 MG TAB PO SCH ×3 (10:36→20:31)
[2022-01-22] MEDS: oxyCODONE 5MG TAB PO SCH ×3 (10:37→20:38)
[2022-01-22] MEDS: ASCORBIC ACID 500 MG TAB PO SCH (10:38)
[2022-01-22] MEDS: LIDOCAINE 5% (LIDODERM) PATCH TD SCH ×2 (10:39→20:36)
[2022-01-22] MEDS: oxyBUTYnin 5 MG TAB PO SCH ×2 (10:41→20:29)
[2022-01-22] MEDS: METOPROLOL TART 25 MG TABLET PO SCH ×2 (10:41→20:30)
[2022-01-22] MEDS: PANTOPRAZOLE 40MG TAB (PROTONIX) PO SCH (10:41)
[2022-01-22] MEDS: REMEDY PHYTOPLEX Z-GUARD PASTE 113GM TUBE (FROM STOREROOM PRODUCT) TOP SCH ×3 (10:42→20:35)
[2022-01-22 14:00] VITALS: BP 128/57
[2022-01-22 20:00] VITALS: BP 149/65
[2022-01-22] MEDS: RAMELTEON 8 MG TAB (ROZEREM) PO PRN (20:28)
[2022-01-22] MEDS: SIMVASTATIN 20 MG TAB PO SCH (20:29)
[2022-01-22] MEDS: SENNA 8.6 MG TAB (SENOKOT) PO SCH (20:30)
[2022-01-22] MEDS: PARoxetine 20MG TABLET PO SCH (20:39)
[2022-01-23] MEDS: HEPARIN SOD (PORCINE) 5000UNITS/ML 1ML VIAL/SYRINGE SC SCH ×3 (05:02→20:07)
[2022-01-23] MEDS: LEVOTHYROXINE 100MCG TABLET (0.1MG) PO SCH (05:02)
[2022-01-23 06:00] VITALS: BP 150/70
[2022-01-23] MEDS: COMBIVENT RESPIMAT 100-20MCG INHALER 4GM INH SCH ×3 (08:00→20:15)
[2022-01-23] MEDS: LACTOBACILLUS ACIDOPHILUS CAP (BACID) PO SCH ×4 (08:00→20:06)
[2022-01-23] MEDS: ADVAIR HFA 115/21MCG INHALER INH SCH ×2 (08:37→20:15)
[2022-01-23] MEDS: ASCORBIC ACID 500 MG TAB PO SCH (09:17)
[2022-01-23] MEDS: GABAPENTIN 300 MG CAP PO SCH ×2 (09:17→20:06)
[2022-01-23] MEDS: oxyCODONE 5MG TAB PO SCH ×3 (09:18→20:06)
[2022-01-23] MEDS: METOPROLOL TART 25 MG TABLET PO SCH ×2 (09:18→19:57)
[2022-01-23] MEDS: CYANOCOBALAMIN 500 MCG TAB PO SCH (09:19)
[2022-01-23] MEDS: oxyBUTYnin 5 MG TAB PO SCH ×2 (09:19→20:06)
[2022-01-23] MEDS: PANTOPRAZOLE 40MG TAB (PROTONIX) PO SCH (09:19)
[2022-01-23] MEDS: REMEDY PHYTOPLEX Z-GUARD PASTE 113GM TUBE (FROM STOREROOM PRODUCT) TOP SCH ×3 (09:20→20:07)
[2022-01-23] MEDS: ACETAMINOPHEN 500 MG TAB PO SCH ×3 (09:29→20:05)
[2022-01-23 14:00] VITALS: BP 140/71
[2022-01-23 20:00] VITALS: BP 168/68
[2022-01-23] MEDS: RAMELTEON 8 MG TAB (ROZEREM) PO PRN (20:06)
[2022-01-23] MEDS: SENNA 8.6 MG TAB (SENOKOT) PO SCH (20:06)
[2022-01-23] MEDS: SIMVASTATIN 20 MG TAB PO SCH (20:07)
[2022-01-23] MEDS: PARoxetine 20MG TABLET PO SCH (23:23)
[2022-01-24] MEDS: LEVOTHYROXINE 100MCG TABLET (0.1MG) PO SCH (05:14)
[2022-01-24] MEDS: HEPARIN SOD (PORCINE) 5000UNITS/ML 1ML VIAL/SYRINGE SC SCH ×3 (05:15→22:00)
[2022-01-24 06:00] VITALS: BP 139/61
[2022-01-24] MEDS: LIDOCAINE 5% (LIDODERM) PATCH TD SCH (07:22)
[2022-01-24] MEDS: COMBIVENT RESPIMAT 100-20MCG INHALER 4GM INH SCH ×3 (08:00→20:13)
[2022-01-24] MEDS: oxyCODONE 5MG TAB PO SCH ×3 (09:00→21:26)
[2022-01-24] MEDS: GABAPENTIN 300 MG CAP PO SCH ×2 (09:20→21:25)
[2022-01-24] MEDS: ASCORBIC ACID 500 MG TAB PO SCH (09:20)
[2022-01-24] MEDS: LACTOBACILLUS ACIDOPHILUS CAP (BACID) PO SCH ×4 (09:21→21:25)
[2022-01-24] MEDS: PANTOPRAZOLE 40MG TAB (PROTONIX) PO SCH (09:21)
[2022-01-24] MEDS: CYANOCOBALAMIN 500 MCG TAB PO SCH (09:21)
[2022-01-24] MEDS: ACETAMINOPHEN 500 MG TAB PO SCH ×3 (09:21→21:26)
[2022-01-24 09:22] VITALS: BP 139/61
[2022-01-24] MEDS: METOPROLOL TART 25 MG TABLET PO SCH ×3 (09:22→21:31)
[2022-01-24] MEDS: REMEDY PHYTOPLEX Z-GUARD PASTE 113GM TUBE (FROM STOREROOM PRODUCT) TOP SCH ×3 (09:22→21:33)
[2022-01-24] MEDS: oxyBUTYnin 5 MG TAB PO SCH ×2 (09:22→21:25)
[2022-01-24] MEDS: ADVAIR HFA 115/21MCG INHALER INH SCH ×2 (14:04→20:13)
[2022-01-24 14:26] VITALS: BP 138/76
[2022-01-24 20:00] VITALS: BP 148/64
[2022-01-24] MEDS: PARoxetine 20MG TABLET PO SCH (21:25)
[2022-01-24] MEDS: SIMVASTATIN 20 MG TAB PO SCH (21:25)
[2022-01-24] MEDS: SENNA 8.6 MG TAB (SENOKOT) PO SCH (21:26)
[2022-01-25] MEDS: HEPARIN SOD (PORCINE) 5000UNITS/ML 1ML VIAL/SYRINGE SC SCH (05:04)
[2022-01-25] MEDS: LEVOTHYROXINE 100MCG TABLET (0.1MG) PO SCH (05:48)
[2022-01-25 07:00] VITALS: BP 120/70
[2022-01-25] MEDS: COMBIVENT RESPIMAT 100-20MCG INHALER 4GM INH SCH (07:00)
[2022-01-25] MEDS: ADVAIR HFA 115/21MCG INHALER INH SCH (07:00)
[2022-01-25] MEDS: REMEDY PHYTOPLEX Z-GUARD PASTE 113GM TUBE (FROM STOREROOM PRODUCT) TOP SCH (09:00)
[2022-01-25] MEDS: PANTOPRAZOLE 40MG TAB (PROTONIX) PO SCH (09:05)
[2022-01-25] MEDS: oxyBUTYnin 5 MG TAB PO SCH (09:05)
[2022-01-25] MEDS: LACTOBACILLUS ACIDOPHILUS CAP (BACID) PO SCH (09:05)
[2022-01-25] MEDS: GABAPENTIN 300 MG CAP PO SCH (09:05)
[2022-01-25] MEDS: CYANOCOBALAMIN 500 MCG TAB PO SCH (09:06)
[2022-01-25] MEDS: METOPROLOL TART 25 MG TABLET PO SCH (09:06)
[2022-01-25] MEDS: ACETAMINOPHEN 500 MG TAB PO SCH (09:06)
[2022-01-25] MEDS: ASCORBIC ACID 500 MG TAB PO SCH (09:06)
[2022-01-25] MEDS: LIDOCAINE 5% (LIDODERM) PATCH TD SCH (09:07)
[2022-01-25] MEDS: oxyCODONE 5MG TAB PO SCH (09:08)
== END 2022-01-25 10:20 | disposition home health service (06) | DRG 71 ==
LOC: EEVIPCON 18:28 → M PM&R 18:28
PROVIDERS: ADMIT Physical Medicine & Rehabilitation; ATTEND Physical Medicine & Rehabilitation
DX: G93.41 Metabolic encephalopathy (principal); N39.0 Urinary tract infection, site not specified; I50.32 Chronic diastolic (congestive) heart failure; N17.9 Acute kidney failure, unspecified; I13.0 Hypertensive heart and chronic kidney disease with heart failure and stage 1 through stage 4 chronic kidney disease, or unspecified chronic kidney disease; E87.1 Hypo-osmolality and hyponatremia; R13.10 Dysphagia, unspecified; N18.32 Chronic kidney disease, stage 3b; J44.9 Chronic obstructive pulmonary disease, unspecified; E03.9 Hypothyroidism, unspecified; N30.10 Interstitial cystitis (chronic) without hematuria; S42.301D Unspecified fracture of shaft of humerus, right arm, subsequent encounter for fracture with routine healing; S82.899D Other fracture of unspecified lower leg, subsequent encounter for closed fracture with routine healing; F41.9 Anxiety disorder, unspecified; F32.A Depression, unspecified; Z87.891 Personal history of nicotine dependence; Z91.040 Latex allergy status; Z79.899 Other long term (current) drug therapy; E78.5 Hyperlipidemia, unspecified; E83.51 Hypocalcemia; Z96.651 Presence of right artificial knee joint; F03.90 Unspecified dementia, unspecified severity, without behavioral disturbance, psychotic disturbance, mood disturbance, and anxiety; B96.20 Unspecified Escherichia coli [E. coli] as the cause of diseases classified elsewhere; R29.6 Repeated falls; W18.30XD Fall on same level, unspecified, subsequent encounter

== ENCOUNTER → 2022-02-04 | Outpatient (CLI) | payer MEDICARE, OTHER ==
[~2022-02-04] MED LIST changes: +ADVA115A INH; +DICL20GE TP; +GABA-282 PO; +OXYC-517 PO; +PARO40TA3 PO
== END ==
LOC: M SOG 09:43
PROVIDERS: ATTEND Orthopaedic Surgery Adult Reconstructive Orthopaedic Surgery
DX: M25.511 Pain in right shoulder (principal); S72.001D Fracture of unspecified part of neck of right femur, subsequent encounter for closed fracture with routine healing

== ENCOUNTER → 2022-02-05 | Outpatient (REF) | payer MEDICARE, OTHER ==
[2022-02-05 19:32] LABS: PERCENT SATURATION 17.3 % (13.2-45.0)
== END ==
LOC: M LAB REF 17:19
PROVIDERS: ATTEND Internal Medicine Nephrology
DX: D50.9 Iron deficiency anemia, unspecified (principal)

== ENCOUNTER 2022-02-19 06:42 | Inpatient (IN) | payer MEDICARE, OTHER ==
[~2022-02-19] VITALS: Ht 154.9 cm; Wt 79.0 kg
[2022-02-19] MEDS: LEVOTHYROXINE 100MCG TABLET (0.1MG) PO SCH (06:00)
[2022-02-19 07:27] LABS: BASO # 0.1 10^3/uL (0.0-0.2); BASO % 0.3 % (0.0-1.0); EOS % 0.2 % (0.0-3.0); HEMATOCRIT 34.4 % (36.0-47.0); HEMOGLOBIN 11.1 g/dl (12.0-15.5); LYMPH # 0.7 10^3/uL (1.5-5.0); LYMPH % 3.5 % (24.0-44.0); MEAN CORPUSCULAR HEMOGLOBIN 30.2 pg (27.0-33.0); MEAN CORPUSCULAR HGB CONC 32.3 g/dl (32.0-36.5); MEAN CORPUSCULAR VOLUME 93.5 fl (80.0-96.0); MONO # 1.4 10^3/uL (0.0-0.8); MONO % 6.9 % (2.0-8.0); NEUTROPHILS # 18.3 10^3/uL (1.5-8.5); NEUTROPHILS % 88.2 % (36.0-66.0); PLATELET COUNT, AUTOMATED 298 10^3/uL (150-450); RED BLOOD COUNT 3.68 10^6/uL (4.00-5.40); WHITE BLOOD COUNT 20.7 10^3/uL (4.0-10.0)
[2022-02-19 07:37] LABS: CALCIUM LEVEL 9.4 MG/DL (8.3-10.6); CREATININE FOR GFR 1.42 MG/DL (0.55-1.30); POTASSIUM SERUM 4.2 MMOL/L (3.5-5.1)
[2022-02-19] MEDS ORDERED: PARO37.55 PO (07:37)
[2022-02-19] MEDS ORDERED: AMPICILLIN SOD/SULBACTAM SOD 3 GM in D5W MINI-BAG PLUS 100 ML IV ONE (08:10)
[2022-02-19] MEDS ORDERED: ISOVUE-370 76% 100ML VIAL As Ordered ONE (08:16)
[2022-02-19] MEDS ORDERED: METOPROLOL TART 25 MG TABLET PO ONE (08:50)
[2022-02-19] MEDS ORDERED: PERCOCET 5MG/325MG TAB PO ONE (08:50)
[2022-02-19] MEDS ORDERED: QUEtiapine FUMARATE 25 MG TAB PO SCH (09:00)
[2022-02-19 09:03] LABS: RSV AMPLIFICATION NEGATIVE (NEGATIVE)
[2022-02-19] MEDS ORDERED: GABA-282 PO (10:28)
[2022-02-19] MEDS ORDERED: SIMV20TA22 PO (10:28)
[2022-02-19] MEDS ORDERED: DICL1GEL3 TOP (10:28)
[2022-02-19] MEDS ORDERED: METO25TA4 PO (10:28)
[2022-02-19] MEDS ORDERED: LEVO100T5 PO (10:28)
[2022-02-19] MEDS ORDERED: HOME MED LIST COMPLETE! XX SCH (10:30)
[2022-02-19] MEDS ORDERED: ACETAMINOPHEN TAB 650MG DOSE (2X325MG) PO PRN (12:25)
[2022-02-19] MEDS: AMPICILLIN SOD/SULBACTAM SOD 3 GM in D5W MINI-BAG PLUS 100 ML IV SCH ×2 (16:06→22:27)
[2022-02-19] MEDS: QUEtiapine FUMARATE 25 MG TAB PO SCH (17:17)
[2022-02-19] MEDS: SIMVASTATIN 20 MG TAB PO SCH (22:27)
[2022-02-19] MEDS: GABAPENTIN 300 MG CAP PO SCH (22:27)
[2022-02-20] MEDS: GABAPENTIN 300 MG CAP PO SCH ×2 (00:04→21:08)
[2022-02-20] MEDS: SIMVASTATIN 20 MG TAB PO SCH (00:04)
[2022-02-20] MEDS: AMPICILLIN SOD/SULBACTAM SOD 3 GM in D5W MINI-BAG PLUS 100 ML IV SCH ×4 (02:55→21:10)
[2022-02-20] MEDS: LEVOTHYROXINE 100MCG TABLET (0.1MG) PO SCH (05:49)
[2022-02-20 07:28] LABS: BASO # 0.1 10^3/uL (0.0-0.2); BASO % 0.2 % (0.0-1.0); EOS % 0.1 % (0.0-3.0); HEMATOCRIT 32.3 % (36.0-47.0); HEMOGLOBIN 10.5 g/dl (12.0-15.5); LYMPH # 0.9 10^3/uL (1.5-5.0); LYMPH % 3.8 % (24.0-44.0); MEAN CORPUSCULAR HEMOGLOBIN 30.3 pg (27.0-33.0); MEAN CORPUSCULAR HGB CONC 32.5 g/dl (32.0-36.5); MEAN CORPUSCULAR VOLUME 93.1 fl (80.0-96.0); MONO # 1.2 10^3/uL (0.0-0.8); MONO % 5.1 % (2.0-8.0); NEUTROPHILS # 21.8 10^3/uL (1.5-8.5); NEUTROPHILS % 89.9 % (36.0-66.0); PLATELET COUNT, AUTOMATED 290 10^3/uL (150-450); RED BLOOD COUNT 3.47 10^6/uL (4.00-5.40); WHITE BLOOD COUNT 24.2 10^3/uL (4.0-10.0)
[2022-02-20] MEDS: ACETAMINOPHEN 325MG/10.15ML UDC PO PRN ×2 (07:41→21:10)
[2022-02-20 07:43] LABS: CREATININE FOR GFR 1.37 MG/DL (0.55-1.30); GLOMERULAR FILTRATION RATE 39.6 (>39); POTASSIUM SERUM 4.1 MMOL/L (3.5-5.1)
[2022-02-20] MEDS ORDERED: NS 1,000 ML IV ONE (07:50)
[2022-02-20] MEDS ORDERED: ONDANSETRON 4MG 2ML VIAL IV PRN (07:55)
[2022-02-20 08:07] LABS: C REACTIVE PROTEIN QUANTITATIV 29.8 MG/DL (<1.0)
[2022-02-20] MEDS: PANTOPRAZOLE 40MG VIAL IV SCH (11:52)
[2022-02-20] MEDS: METOPROLOL TART 25 MG TABLET PO SCH (11:53)
[2022-02-20 12:35] VITALS: BP 162/98
[2022-02-20] MEDS: QUEtiapine FUMARATE 25 MG TAB PO SCH (15:42)
[2022-02-20] MEDS: PARoxetine 25MG CR TAB (PAXIL CR) PO SCH (15:42)
[2022-02-20 22:00] VITALS: BP 168/82
[2022-02-21] MEDS: AMPICILLIN SOD/SULBACTAM SOD 3 GM in D5W MINI-BAG PLUS 100 ML IV SCH ×2 (01:58→08:16)
[2022-02-21] MEDS: LEVOTHYROXINE 100MCG TABLET (0.1MG) PO SCH (05:27)
[2022-02-21 06:00] VITALS: BP 147/80
[2022-02-21 07:04] LABS: BASO # 0.1 10^3/uL (0.0-0.2); BASO % 0.3 % (0.0-1.0); EOS # 0.2 10^3/uL (0.0-0.5); EOS % 1.2 % (0.0-3.0); HEMATOCRIT 29.7 % (36.0-47.0); HEMOGLOBIN 9.5 g/dl (12.0-15.5); LYMPH # 0.9 10^3/uL (1.5-5.0); LYMPH % 5.5 % (24.0-44.0); MEAN CORPUSCULAR HEMOGLOBIN 30.4 pg (27.0-33.0); MEAN CORPUSCULAR VOLUME 95.2 fl (80.0-96.0); MONO # 0.9 10^3/uL (0.0-0.8); MONO % 5.2 % (2.0-8.0); NEUTROPHILS # 14.7 10^3/uL (1.5-8.5); PLATELET COUNT, AUTOMATED 288 10^3/uL (150-450); RED BLOOD COUNT 3.12 10^6/uL (4.00-5.40); WHITE BLOOD COUNT 16.9 10^3/uL (4.0-10.0)
[2022-02-21 07:21] LABS: CALCIUM LEVEL 8.8 MG/DL (8.3-10.6); CREATININE FOR GFR 1.83 MG/DL (0.55-1.30); GLOMERULAR FILTRATION RATE 28.3 (>39); POTASSIUM SERUM 4.1 MMOL/L (3.5-5.1)
[2022-02-21] MEDS ORDERED: NS 1,000 ML IV ONE (07:40)
[2022-02-21] MEDS: PARoxetine 25MG CR TAB (PAXIL CR) PO SCH (08:16)
[2022-02-21] MEDS: GABAPENTIN 300 MG CAP PO SCH ×2 (08:16→21:43)
[2022-02-21] MEDS: LACTOBACILLUS ACIDOPHILUS CAP (BACID) PO SCH (08:16)
[2022-02-21] MEDS: PANTOPRAZOLE 40MG VIAL IV SCH (08:17)
[2022-02-21] MEDS: METOPROLOL TART 25 MG TABLET PO SCH (08:18)
[2022-02-21] MEDS: ACETAMINOPHEN 325MG/10.15ML UDC PO PRN ×2 (08:18→21:43)
[2022-02-21] MEDS ORDERED: VANCOMYCIN HCL 1,000 MG, VIAL MATE ADAPTER 1 EACH in NS 250 ML IV SCH (08:35)
[2022-02-21] MEDS ORDERED: VANCOMYCIN HCL 1,000 MG, VIAL MATE ADAPTER 1 EACH in NS 250 ML IV ONE (09:00)
[2022-02-21] MEDS ORDERED: VANCOMYCIN HCL 750 MG, VIAL MATE ADAPTER 1 EACH in D5W 250 ML IV ONE (12:00)
[2022-02-21 14:00] VITALS: BP 111/61
[2022-02-21] MEDS: QUEtiapine FUMARATE 25 MG TAB PO SCH (16:03)
[2022-02-21 20:00] VITALS: BP 127/64
[2022-02-21] MEDS ORDERED: AMPICILLIN SOD/SULBACTAM SOD 3 GM in D5W MINI-BAG PLUS 100 ML IV SCH (20:00)
[2022-02-21] MEDS: SIMVASTATIN 20 MG TAB PO SCH (21:43)
[2022-02-22] MEDS: LEVOTHYROXINE 100MCG TABLET (0.1MG) PO SCH (05:37)
[2022-02-22 06:14] VITALS: BP 123/55
[2022-02-22] MEDS ORDERED: VANCOMYCIN HCL 750 MG, VIAL MATE ADAPTER 1 EACH in D5W 250 ML IV SCH (07:00)
[2022-02-22 07:02] LABS: BASO # 0.1 10^3/uL (0.0-0.2); BASO % 0.5 % (0.0-1.0); EOS # 0.3 10^3/uL (0.0-0.5); EOS % 2.8 % (0.0-3.0); HEMATOCRIT 28.2 % (36.0-47.0); HEMOGLOBIN 8.7 g/dl (12.0-15.5); LYMPH # 1.1 10^3/uL (1.5-5.0); LYMPH % 10.4 % (24.0-44.0); MEAN CORPUSCULAR HEMOGLOBIN 29.8 pg (27.0-33.0); MEAN CORPUSCULAR HGB CONC 30.9 g/dl (32.0-36.5); MEAN CORPUSCULAR VOLUME 96.6 fl (80.0-96.0); MONO # 0.8 10^3/uL (0.0-0.8); MONO % 6.9 % (2.0-8.0); NEUTROPHILS # 8.5 10^3/uL (1.5-8.5); NEUTROPHILS % 78.9 % (36.0-66.0); PLATELET COUNT, AUTOMATED 284 10^3/uL (150-450); RED BLOOD COUNT 2.92 10^6/uL (4.00-5.40); WHITE BLOOD COUNT 10.8 10^3/uL (4.0-10.0)
[2022-02-22 07:31] LABS: CALCIUM LEVEL 8.5 MG/DL (8.3-10.6); CREATININE FOR GFR 2.1 MG/DL (0.55-1.30); GLOMERULAR FILTRATION RATE 24.2 (>39); POTASSIUM SERUM 4.5 MMOL/L (3.5-5.1)
[2022-02-22 08:23] LABS: VANCOMYCIN RANDOM 17.8 UG/ML
[2022-02-22] MEDS: GABAPENTIN 300 MG CAP PO SCH ×2 (08:39→22:15)
[2022-02-22] MEDS: PANTOPRAZOLE 40MG VIAL IV SCH (08:39)
[2022-02-22] MEDS: LACTOBACILLUS ACIDOPHILUS CAP (BACID) PO SCH (08:40)
[2022-02-22] MEDS: METOPROLOL TART 25 MG TABLET PO SCH (08:40)
[2022-02-22] MEDS: PARoxetine 25MG CR TAB (PAXIL CR) PO SCH (08:40)
[2022-02-22] MEDS ORDERED: ceFAZolin SOD 2 GM in IV 1 EA IV SCH (12:00)
[2022-02-22 13:33] LABS: C REACTIVE PROTEIN QUANTITATIV 11.4 MG/DL (<1.0)
[2022-02-22 14:00] VITALS: BP 141/69
[2022-02-22] MEDS ORDERED: LIDOCAINE 1% MDV 20ML VIAL As Ordered ONE (16:05)
[2022-02-22] MEDS: ceFAZolin SOD 2 GM in IV 1 EA IV SCH (17:32)
[2022-02-22] MEDS: QUEtiapine FUMARATE 25 MG TAB PO SCH (17:32)
[2022-02-22 21:02] VITALS: BP 140/81
[2022-02-22 22:10] VITALS: BP 161/78
[2022-02-22] MEDS: SIMVASTATIN 20 MG TAB PO SCH (22:15)
[2022-02-22] MEDS: ACETAMINOPHEN 325MG/10.15ML UDC PO PRN (22:16)
[2022-02-23 06:01] VITALS: BP 112/70
[2022-02-23] MEDS: LEVOTHYROXINE 100MCG TABLET (0.1MG) PO SCH (06:07)
[2022-02-23] MEDS: ceFAZolin SOD 2 GM in IV 1 EA IV SCH ×2 (06:07→17:48)
[2022-02-23 06:44] LABS: BASO # 0.1 10^3/uL (0.0-0.2); BASO % 0.8 % (0.0-1.0); EOS # 0.3 10^3/uL (0.0-0.5); EOS % 3.3 % (0.0-3.0); HEMOGLOBIN 8.5 g/dl (12.0-15.5); LYMPH # 1.3 10^3/uL (1.5-5.0); LYMPH % 17.3 % (24.0-44.0); MEAN CORPUSCULAR HEMOGLOBIN 30.1 pg (27.0-33.0); MEAN CORPUSCULAR HGB CONC 31.5 g/dl (32.0-36.5); MEAN CORPUSCULAR VOLUME 95.7 fl (80.0-96.0); MONO # 0.8 10^3/uL (0.0-0.8); MONO % 9.9 % (2.0-8.0); NEUTROPHILS # 5.1 10^3/uL (1.5-8.5); NEUTROPHILS % 67.5 % (36.0-66.0); PLATELET COUNT, AUTOMATED 263 10^3/uL (150-450); RED BLOOD COUNT 2.82 10^6/uL (4.00-5.40); WHITE BLOOD COUNT 7.6 10^3/uL (4.0-10.0)
[2022-02-23 07:16] LABS: CALCIUM LEVEL 8.7 MG/DL (8.3-10.6); CREATININE FOR GFR 1.76 MG/DL (0.55-1.30); GLOMERULAR FILTRATION RATE 29.7 (>39); POTASSIUM SERUM 4.5 MMOL/L (3.5-5.1)
[2022-02-23] MEDS: PANTOPRAZOLE 40MG VIAL IV SCH (09:22)
[2022-02-23] MEDS: PARoxetine 25MG CR TAB (PAXIL CR) PO SCH (09:23)
[2022-02-23] MEDS: LACTOBACILLUS ACIDOPHILUS CAP (BACID) PO SCH (09:23)
[2022-02-23] MEDS: GABAPENTIN 300 MG CAP PO SCH ×2 (09:23→20:07)
[2022-02-23] MEDS: METOPROLOL TART 25 MG TABLET PO SCH (09:24)
[2022-02-23 14:00] VITALS: BP 159/73
[2022-02-23] MEDS: QUEtiapine FUMARATE 25 MG TAB PO SCH (17:48)
[2022-02-23] MEDS: SIMVASTATIN 20 MG TAB PO SCH (20:07)
[2022-02-23 23:20] VITALS: BP 154/85
[2022-02-24] MEDS: ceFAZolin SOD 2 GM in IV 1 EA IV SCH ×2 (06:03→18:30)
[2022-02-24] MEDS: LEVOTHYROXINE 100MCG TABLET (0.1MG) PO SCH (06:03)
[2022-02-24 06:05] VITALS: BP 157/82
[2022-02-24 06:20] LABS: BASO # 0.1 10^3/uL (0.0-0.2); BASO % 0.8 % (0.0-1.0); EOS # 0.3 10^3/uL (0.0-0.5); EOS % 3.1 % (0.0-3.0); HEMATOCRIT 27.2 % (36.0-47.0); HEMOGLOBIN 8.8 g/dl (12.0-15.5); LYMPH # 1.4 10^3/uL (1.5-5.0); LYMPH % 16.6 % (24.0-44.0); MEAN CORPUSCULAR HEMOGLOBIN 30.8 pg (27.0-33.0); MEAN CORPUSCULAR HGB CONC 32.4 g/dl (32.0-36.5); MEAN CORPUSCULAR VOLUME 95.1 fl (80.0-96.0); MONO # 0.8 10^3/uL (0.0-0.8); MONO % 9.4 % (2.0-8.0); NEUTROPHILS # 5.8 10^3/uL (1.5-8.5); NEUTROPHILS % 68.6 % (36.0-66.0); PLATELET COUNT, AUTOMATED 270 10^3/uL (150-450); RED BLOOD COUNT 2.86 10^6/uL (4.00-5.40); WHITE BLOOD COUNT 8.4 10^3/uL (4.0-10.0)
[2022-02-24 06:43] LABS: CALCIUM LEVEL 9.4 MG/DL (8.3-10.6); CREATININE FOR GFR 1.53 MG/DL (0.55-1.30); GLOMERULAR FILTRATION RATE 34.9 (>39); POTASSIUM SERUM 4.6 MMOL/L (3.5-5.1)
[2022-02-24] MEDS: CHLORHEXIDINE GLUCONATE 0.12 % 15ML UDC (PERIDEX ORAL RINSE) MT SCH ×4 (09:00→21:01)
[2022-02-24] MEDS ORDERED: NS 500 ML IV ONE (09:50)
[2022-02-24] MEDS: PANTOPRAZOLE 40MG VIAL IV SCH (11:11)
[2022-02-24] MEDS: LACTOBACILLUS ACIDOPHILUS CAP (BACID) PO SCH ×2 (11:12→18:41)
[2022-02-24] MEDS: PARoxetine 25MG CR TAB (PAXIL CR) PO SCH (11:12)
[2022-02-24] MEDS: METOPROLOL TART 25 MG TABLET PO SCH (11:14)
[2022-02-24] MEDS: GABAPENTIN 300 MG CAP PO SCH ×2 (11:15→21:01)
[2022-02-24 14:00] VITALS: BP 155/68
[2022-02-24] MEDS: QUEtiapine FUMARATE 25 MG TAB PO SCH (16:12)
[2022-02-24] MEDS: SIMVASTATIN 20 MG TAB PO SCH (21:01)
[2022-02-24 21:04] VITALS: BP 160/72
[2022-02-25 05:39] VITALS: BP 165/80
[2022-02-25] MEDS: LEVOTHYROXINE 100MCG TABLET (0.1MG) PO SCH (05:39)
[2022-02-25] MEDS: ceFAZolin SOD 2 GM in IV 1 EA IV SCH ×2 (05:39→17:57)
[2022-02-25 06:32] LABS: BASO # 0.1 10^3/uL (0.0-0.2); BASO % 0.6 % (0.0-1.0); EOS # 0.3 10^3/uL (0.0-0.5); EOS % 2.9 % (0.0-3.0); HEMATOCRIT 29.9 % (36.0-47.0); HEMOGLOBIN 9.2 g/dl (12.0-15.5); LYMPH # 1.3 10^3/uL (1.5-5.0); LYMPH % 12.8 % (24.0-44.0); MEAN CORPUSCULAR HEMOGLOBIN 29.4 pg (27.0-33.0); MEAN CORPUSCULAR HGB CONC 30.8 g/dl (32.0-36.5); MEAN CORPUSCULAR VOLUME 95.5 fl (80.0-96.0); MONO # 0.9 10^3/uL (0.0-0.8); NEUTROPHILS # 7.2 10^3/uL (1.5-8.5); NEUTROPHILS % 72.7 % (36.0-66.0); PLATELET COUNT, AUTOMATED 305 10^3/uL (150-450); RED BLOOD COUNT 3.13 10^6/uL (4.00-5.40); WHITE BLOOD COUNT 9.9 10^3/uL (4.0-10.0)
[2022-02-25 07:02] LABS: CALCIUM LEVEL 9.2 MG/DL (8.3-10.6); CREATININE FOR GFR 1.4 MG/DL (0.55-1.30); GLOMERULAR FILTRATION RATE 38.6 (>39); POTASSIUM SERUM 4.5 MMOL/L (3.5-5.1)
[2022-02-25] MEDS: PARoxetine 25MG CR TAB (PAXIL CR) PO SCH (09:09)
[2022-02-25] MEDS: PANTOPRAZOLE 40MG VIAL IV SCH (09:09)
[2022-02-25] MEDS: LACTOBACILLUS ACIDOPHILUS CAP (BACID) PO SCH ×2 (09:09→17:56)
[2022-02-25] MEDS: GABAPENTIN 300 MG CAP PO SCH ×2 (09:09→20:39)
[2022-02-25] MEDS: CHLORHEXIDINE GLUCONATE 0.12 % 15ML UDC (PERIDEX ORAL RINSE) MT SCH ×4 (09:09→20:39)
[2022-02-25] MEDS: METOPROLOL TART 25 MG TABLET PO SCH (09:12)
[2022-02-25] MEDS: ACETAMINOPHEN 325MG/10.15ML UDC PO PRN ×2 (09:16→20:40)
[2022-02-25 14:00] VITALS: BP 138/64
[2022-02-25] MEDS: QUEtiapine FUMARATE 25 MG TAB PO SCH (16:07)
[2022-02-25 20:35] VITALS: BP 144/86
[2022-02-25] MEDS: SIMVASTATIN 20 MG TAB PO SCH (20:39)
[2022-02-25] MEDS: HEPARIN SOD (PORCINE) 5000UNITS/ML 1ML VIAL/SYRINGE SQ SCH ×2 (20:40→20:42)
[2022-02-26 05:44] VITALS: BP 139/64
[2022-02-26] MEDS: LEVOTHYROXINE 100MCG TABLET (0.1MG) PO SCH (06:16)
[2022-02-26] MEDS: SODIUM CHLORIDE 0.9% INJ 10 ML SYR IV SCH ×2 (06:17→18:28)
[2022-02-26] MEDS: HEPARIN SOD (PORCINE) 5000UNITS/ML 1ML VIAL/SYRINGE SQ SCH ×3 (06:17→21:21)
[2022-02-26] MEDS: ceFAZolin SOD 2 GM in IV 1 EA IV SCH ×2 (06:18→18:28)
[2022-02-26 07:23] LABS: BASO # 0.1 10^3/uL (0.0-0.2); BASO % 0.7 % (0.0-1.0); EOS # 0.4 10^3/uL (0.0-0.5); EOS % 3.9 % (0.0-3.0); HEMOGLOBIN 8.6 g/dl (12.0-15.5); LYMPH # 1.4 10^3/uL (1.5-5.0); LYMPH % 15.6 % (24.0-44.0); MEAN CORPUSCULAR HEMOGLOBIN 30.1 pg (27.0-33.0); MEAN CORPUSCULAR HGB CONC 31.9 g/dl (32.0-36.5); MEAN CORPUSCULAR VOLUME 94.4 fl (80.0-96.0); MONO # 0.8 10^3/uL (0.0-0.8); MONO % 8.4 % (2.0-8.0); NEUTROPHILS # 6.1 10^3/uL (1.5-8.5); NEUTROPHILS % 67.5 % (36.0-66.0); PLATELET COUNT, AUTOMATED 285 10^3/uL (150-450); RED BLOOD COUNT 2.86 10^6/uL (4.00-5.40)
[2022-02-26 07:54] LABS: CALCIUM LEVEL 8.9 MG/DL (8.3-10.6); CREATININE FOR GFR 1.45 MG/DL (0.55-1.30); GLOMERULAR FILTRATION RATE 37.1 (>39); POTASSIUM SERUM 4.5 MMOL/L (3.5-5.1)
[2022-02-26] MEDS: PANTOPRAZOLE 40MG VIAL IV SCH (08:45)
[2022-02-26] MEDS: GABAPENTIN 300 MG CAP PO SCH ×2 (08:46→21:20)
[2022-02-26] MEDS: METOPROLOL TART 25 MG TABLET PO SCH (08:46)
[2022-02-26] MEDS: PARoxetine 25MG CR TAB (PAXIL CR) PO SCH (08:47)
[2022-02-26] MEDS: LACTOBACILLUS ACIDOPHILUS CAP (BACID) PO SCH ×2 (08:47→18:27)
[2022-02-26] MEDS: CHLORHEXIDINE GLUCONATE 0.12 % 15ML UDC (PERIDEX ORAL RINSE) MT SCH ×4 (08:48→21:20)
[2022-02-26] MEDS: SODIUM CHLORIDE 0.9% INJ 10 ML SYR IV PRN (08:49)
[2022-02-26 14:00] VITALS: BP 136/65
[2022-02-26] MEDS: QUEtiapine FUMARATE 25 MG TAB PO SCH (16:27)
[2022-02-26 21:20] VITALS: BP 139/65
[2022-02-26] MEDS: SIMVASTATIN 20 MG TAB PO SCH (21:20)
[2022-02-27] MEDS: LEVOTHYROXINE 100MCG TABLET (0.1MG) PO SCH (05:20)
[2022-02-27] MEDS: SODIUM CHLORIDE 0.9% INJ 10 ML SYR IV SCH ×2 (05:21→17:14)
[2022-02-27] MEDS: HEPARIN SOD (PORCINE) 5000UNITS/ML 1ML VIAL/SYRINGE SQ SCH ×3 (05:21→21:15)
[2022-02-27] MEDS: ceFAZolin SOD 2 GM in IV 1 EA IV SCH ×2 (05:22→17:12)
[2022-02-27 06:09] VITALS: BP 138/63
[2022-02-27] MEDS: LACTOBACILLUS ACIDOPHILUS CAP (BACID) PO SCH ×2 (08:30→17:12)
[2022-02-27] MEDS: METOPROLOL TART 25 MG TABLET PO SCH (08:30)
[2022-02-27] MEDS: PARoxetine 25MG CR TAB (PAXIL CR) PO SCH (08:30)
[2022-02-27] MEDS: CHLORHEXIDINE GLUCONATE 0.12 % 15ML UDC (PERIDEX ORAL RINSE) MT SCH ×4 (08:31→21:15)
[2022-02-27] MEDS: PANTOPRAZOLE 40MG VIAL IV SCH (08:31)
[2022-02-27] MEDS: GABAPENTIN 300 MG CAP PO SCH ×2 (08:31→21:15)
[2022-02-27] MEDS: QUEtiapine FUMARATE 25 MG TAB PO SCH (17:12)
[2022-02-27] MEDS: SIMVASTATIN 20 MG TAB PO SCH (21:15)
[2022-02-27] MEDS: ACETAMINOPHEN 325MG/10.15ML UDC PO PRN (21:24)
[2022-02-27 21:40] VITALS: BP 143/76
[2022-02-28] MEDS: HEPARIN SOD (PORCINE) 5000UNITS/ML 1ML VIAL/SYRINGE SQ SCH ×3 (05:18→21:58)
[2022-02-28] MEDS: LEVOTHYROXINE 100MCG TABLET (0.1MG) PO SCH (05:18)
[2022-02-28] MEDS: SODIUM CHLORIDE 0.9% INJ 10 ML SYR IV SCH ×2 (05:19→17:26)
[2022-02-28] MEDS: ceFAZolin SOD 2 GM in IV 1 EA IV SCH ×2 (05:52→17:25)
[2022-02-28 06:00] VITALS: BP 163/71
[2022-02-28] MEDS: PANTOPRAZOLE 40MG VIAL IV SCH (09:54)
[2022-02-28] MEDS: LACTOBACILLUS ACIDOPHILUS CAP (BACID) PO SCH ×2 (09:54→17:25)
[2022-02-28] MEDS: PARoxetine 25MG CR TAB (PAXIL CR) PO SCH (09:54)
[2022-02-28] MEDS: CHLORHEXIDINE GLUCONATE 0.12 % 15ML UDC (PERIDEX ORAL RINSE) MT SCH ×4 (09:55→21:58)
[2022-02-28] MEDS: GABAPENTIN 300 MG CAP PO SCH ×2 (09:55→21:58)
[2022-02-28] MEDS: METOPROLOL TART 25 MG TABLET PO SCH (09:55)
[2022-02-28 14:00] VITALS: BP 162/70
[2022-02-28] MEDS: QUEtiapine FUMARATE 25 MG TAB PO SCH (15:20)
[2022-02-28 21:22] VITALS: BP 160/68
[2022-02-28] MEDS: SIMVASTATIN 20 MG TAB PO SCH (21:58)
[2022-03-01 05:26] VITALS: BP 153/72
[2022-03-01] MEDS: LEVOTHYROXINE 100MCG TABLET (0.1MG) PO SCH (05:44)
[2022-03-01] MEDS: HEPARIN SOD (PORCINE) 5000UNITS/ML 1ML VIAL/SYRINGE SQ SCH ×3 (05:44→22:16)
[2022-03-01] MEDS: ceFAZolin SOD 2 GM in IV 1 EA IV SCH ×2 (05:44→18:11)
[2022-03-01] MEDS: SODIUM CHLORIDE 0.9% INJ 10 ML SYR IV SCH ×2 (05:45→18:17)
[2022-03-01] MEDS: PANTOPRAZOLE 40MG VIAL IV SCH (09:49)
[2022-03-01] MEDS: ACETAMINOPHEN 325MG/10.15ML UDC PO PRN (09:49)
[2022-03-01] MEDS: PARoxetine 25MG CR TAB (PAXIL CR) PO SCH (09:50)
[2022-03-01] MEDS: LACTOBACILLUS ACIDOPHILUS CAP (BACID) PO SCH ×2 (09:50→18:15)
[2022-03-01] MEDS: CHLORHEXIDINE GLUCONATE 0.12 % 15ML UDC (PERIDEX ORAL RINSE) MT SCH ×4 (09:50→22:16)
[2022-03-01] MEDS: GABAPENTIN 300 MG CAP PO SCH ×2 (09:51→22:15)
[2022-03-01] MEDS: METOPROLOL TART 25 MG TABLET PO SCH (09:58)
[2022-03-01 14:00] VITALS: BP 169/84
[2022-03-01] MEDS: QUEtiapine FUMARATE 25 MG TAB PO SCH (16:19)
[2022-03-01] MEDS: SIMVASTATIN 20 MG TAB PO SCH (22:15)
[2022-03-01 23:06] VITALS: BP 145/64
[2022-03-02] MEDS: LEVOTHYROXINE 100MCG TABLET (0.1MG) PO SCH (06:09)
[2022-03-02] MEDS: ceFAZolin SOD 2 GM in IV 1 EA IV SCH ×2 (06:10→17:06)
[2022-03-02] MEDS: HEPARIN SOD (PORCINE) 5000UNITS/ML 1ML VIAL/SYRINGE SQ SCH ×3 (06:10→22:27)
[2022-03-02] MEDS: SODIUM CHLORIDE 0.9% INJ 10 ML SYR IV SCH ×2 (06:11→17:06)
[2022-03-02 06:30] VITALS: BP 144/66
[2022-03-02] MEDS: CHLORHEXIDINE GLUCONATE 0.12 % 15ML UDC (PERIDEX ORAL RINSE) MT SCH ×4 (08:36→22:27)
[2022-03-02] MEDS: PANTOPRAZOLE 40MG VIAL IV SCH (08:36)
[2022-03-02] MEDS: LACTOBACILLUS ACIDOPHILUS CAP (BACID) PO SCH ×2 (08:36→17:05)
[2022-03-02] MEDS: GABAPENTIN 300 MG CAP PO SCH ×2 (08:37→22:27)
[2022-03-02] MEDS: METOPROLOL TART 25 MG TABLET PO SCH (08:37)
[2022-03-02] MEDS: PARoxetine 25MG CR TAB (PAXIL CR) PO SCH (08:37)
[2022-03-02] MEDS: QUEtiapine FUMARATE 25 MG TAB PO SCH (17:05)
[2022-03-02] MEDS: SIMVASTATIN 20 MG TAB PO SCH (22:27)
[2022-03-03 06:00] VITALS: BP 167/73
[2022-03-03] MEDS: LEVOTHYROXINE 100MCG TABLET (0.1MG) PO SCH (06:09)
[2022-03-03] MEDS: ceFAZolin SOD 2 GM in IV 1 EA IV SCH ×2 (06:10→17:32)
[2022-03-03] MEDS: HEPARIN SOD (PORCINE) 5000UNITS/ML 1ML VIAL/SYRINGE SQ SCH ×3 (06:10→21:13)
[2022-03-03] MEDS: SODIUM CHLORIDE 0.9% INJ 10 ML SYR IV SCH ×2 (06:11→17:32)
[2022-03-03] MEDS: PANTOPRAZOLE 40MG VIAL IV SCH (10:16)
[2022-03-03] MEDS: PARoxetine 25MG CR TAB (PAXIL CR) PO SCH (10:16)
[2022-03-03] MEDS: GABAPENTIN 300 MG CAP PO SCH ×2 (10:16→21:13)
[2022-03-03] MEDS: CHLORHEXIDINE GLUCONATE 0.12 % 15ML UDC (PERIDEX ORAL RINSE) MT SCH ×4 (10:16→21:12)
[2022-03-03] MEDS: METOPROLOL TART 25 MG TABLET PO SCH (10:19)
[2022-03-03] MEDS: LACTOBACILLUS ACIDOPHILUS CAP (BACID) PO SCH ×2 (10:21→17:26)
[2022-03-03] MEDS: QUEtiapine FUMARATE 25 MG TAB PO SCH (17:26)
[2022-03-03] MEDS: SODIUM CHLORIDE 0.9% INJ 10 ML SYR IV PRN (21:13)
[2022-03-03] MEDS: SIMVASTATIN 20 MG TAB PO SCH (21:13)
[2022-03-03 23:05] VITALS: BP 139/66
[2022-03-04] MEDS: SODIUM CHLORIDE 0.9% INJ 10 ML SYR IV SCH ×2 (05:20→17:38)
[2022-03-04] MEDS: ceFAZolin SOD 2 GM in IV 1 EA IV SCH ×2 (05:21→17:35)
[2022-03-04] MEDS: LEVOTHYROXINE 100MCG TABLET (0.1MG) PO SCH (05:21)
[2022-03-04] MEDS: HEPARIN SOD (PORCINE) 5000UNITS/ML 1ML VIAL/SYRINGE SQ SCH ×3 (05:21→21:00)
[2022-03-04 05:36] VITALS: BP 139/66
[2022-03-04] MEDS: PANTOPRAZOLE 40MG VIAL IV SCH (10:05)
[2022-03-04] MEDS: LACTOBACILLUS ACIDOPHILUS CAP (BACID) PO SCH ×2 (10:06→17:35)
[2022-03-04] MEDS: GABAPENTIN 300 MG CAP PO SCH ×2 (10:06→20:59)
[2022-03-04] MEDS: METOPROLOL TART 25 MG TABLET PO SCH (10:08)
[2022-03-04] MEDS: CHLORHEXIDINE GLUCONATE 0.12 % 15ML UDC (PERIDEX ORAL RINSE) MT SCH ×4 (10:08→21:00)
[2022-03-04] MEDS: PARoxetine 25MG CR TAB (PAXIL CR) PO SCH (10:08)
[2022-03-04 14:00] VITALS: BP 152/75
[2022-03-04] MEDS: QUEtiapine FUMARATE 25 MG TAB PO SCH (17:35)
[2022-03-04 20:54] VITALS: BP 145/75
[2022-03-04] MEDS: SIMVASTATIN 20 MG TAB PO SCH (20:59)
[2022-03-05] MEDS: LEVOTHYROXINE 100MCG TABLET (0.1MG) PO SCH (05:07)
[2022-03-05] MEDS: ceFAZolin SOD 2 GM in IV 1 EA IV SCH (05:07)
[2022-03-05] MEDS: HEPARIN SOD (PORCINE) 5000UNITS/ML 1ML VIAL/SYRINGE SQ SCH ×2 (05:08→13:32)
[2022-03-05] MEDS: SODIUM CHLORIDE 0.9% INJ 10 ML SYR IV SCH ×2 (05:09→18:36)
[2022-03-05 05:20] VITALS: BP 147/72
[2022-03-05] MEDS: PARoxetine 25MG CR TAB (PAXIL CR) PO SCH (09:36)
[2022-03-05] MEDS: GABAPENTIN 300 MG CAP PO SCH ×2 (09:36→21:36)
[2022-03-05] MEDS: LACTOBACILLUS ACIDOPHILUS CAP (BACID) PO SCH ×2 (09:36→18:35)
[2022-03-05] MEDS: PANTOPRAZOLE 40MG VIAL IV SCH (09:37)
[2022-03-05] MEDS: METOPROLOL TART 25 MG TABLET PO SCH (09:37)
[2022-03-05] MEDS: CHLORHEXIDINE GLUCONATE 0.12 % 15ML UDC (PERIDEX ORAL RINSE) MT SCH ×4 (09:37→21:36)
[2022-03-05 14:45] LABS: HEMATOCRIT 30.4 % (36.0-47.0); HEMOGLOBIN 9.3 g/dl (12.0-15.5); MEAN CORPUSCULAR HEMOGLOBIN 30.2 pg (27.0-33.0); MEAN CORPUSCULAR HGB CONC 30.6 g/dl (32.0-36.5); MEAN CORPUSCULAR VOLUME 98.7 fl (80.0-96.0); PLATELET COUNT, AUTOMATED 273 10^3/uL (150-450); RED BLOOD COUNT 3.08 10^6/uL (4.00-5.40); WHITE BLOOD COUNT 14.7 10^3/uL (4.0-10.0)
[2022-03-05 15:40] LABS: CREATININE FOR GFR 1.48 MG/DL (0.55-1.30); GLOMERULAR FILTRATION RATE 36.2 (>39); POTASSIUM SERUM 4.3 MMOL/L (3.5-5.1)
[2022-03-05] MEDS ORDERED: VANCOMYCIN HCL 750 MG, VIAL MATE ADAPTER 1 EACH in D5W 250 ML IV ONE ×2 (18:00→19:00)
[2022-03-05] MEDS: QUEtiapine FUMARATE 25 MG TAB PO SCH (18:35)
[2022-03-05] MEDS: SIMVASTATIN 20 MG TAB PO SCH (21:36)
[2022-03-05 22:00] VITALS: BP 138/68
[2022-03-05] MEDS: SODIUM CHLORIDE 0.9% INJ 10 ML SYR IV PRN (22:21)
[2022-03-06 06:00] VITALS: BP 139/77
[2022-03-06] MEDS ORDERED: VANCOMYCIN HCL 750 MG, VIAL MATE ADAPTER 1 EACH in D5W 250 ML IV SCH (06:00)
[2022-03-06] MEDS: LEVOTHYROXINE 100MCG TABLET (0.1MG) PO SCH (06:33)
[2022-03-06] MEDS: SODIUM CHLORIDE 0.9% INJ 10 ML SYR IV SCH ×2 (06:34→17:55)
[2022-03-06 06:42] LABS: BASO % 0.1 % (0.0-1.0); EOS # 0.1 10^3/uL (0.0-0.5); HEMATOCRIT 28.7 % (36.0-47.0); LYMPH # 1.1 10^3/uL (1.5-5.0); LYMPH % 7.6 % (24.0-44.0); MEAN CORPUSCULAR HEMOGLOBIN 30.5 pg (27.0-33.0); MEAN CORPUSCULAR HGB CONC 31.4 g/dl (32.0-36.5); MEAN CORPUSCULAR VOLUME 97.3 fl (80.0-96.0); MONO # 1.1 10^3/uL (0.0-0.8); MONO % 7.8 % (2.0-8.0); NEUTROPHILS # 11.7 10^3/uL (1.5-8.5); NEUTROPHILS % 82.8 % (36.0-66.0); PLATELET COUNT, AUTOMATED 242 10^3/uL (150-450); RED BLOOD COUNT 2.95 10^6/uL (4.00-5.40); WHITE BLOOD COUNT 14.2 10^3/uL (4.0-10.0)
[2022-03-06] MEDS: ACETAMINOPHEN 325MG/10.15ML UDC PO PRN ×2 (06:44→14:08)
[2022-03-06] MEDS: SODIUM CHLORIDE 0.9% INJ 10 ML SYR IV PRN (08:18)
[2022-03-06 08:23] LABS: CALCIUM LEVEL 8.6 MG/DL (8.3-10.6); CREATININE FOR GFR 1.45 MG/DL (0.55-1.30); GLOMERULAR FILTRATION RATE 37.1 (>39); POTASSIUM SERUM 4.4 MMOL/L (3.5-5.1)
[2022-03-06] MEDS: HYDROCORTISONE 2.5% 20GM OINTMENT TOP SCH ×2 (09:00→21:26)
[2022-03-06] MEDS: PANTOPRAZOLE 40MG TAB (PROTONIX) PO SCH (09:54)
[2022-03-06] MEDS: LACTOBACILLUS ACIDOPHILUS CAP (BACID) PO SCH ×2 (09:54→17:54)
[2022-03-06] MEDS: CHLORHEXIDINE GLUCONATE 0.12 % 15ML UDC (PERIDEX ORAL RINSE) MT SCH ×4 (09:54→21:26)
[2022-03-06] MEDS: GABAPENTIN 300 MG CAP PO SCH ×2 (09:55→21:26)
[2022-03-06] MEDS: PARoxetine 25MG CR TAB (PAXIL CR) PO SCH (09:55)
[2022-03-06] MEDS: METOPROLOL TART 25 MG TABLET PO SCH (09:58)
[2022-03-06 14:00] VITALS: BP 129/64
[2022-03-06] MEDS ORDERED: URIB118C PO (16:57)
[2022-03-06] MEDS: TROSPIUM 60 MG PO SCH (17:54)
[2022-03-06] MEDS: QUEtiapine FUMARATE 25 MG TAB PO SCH (17:54)
[2022-03-06] MEDS: SIMVASTATIN 20 MG TAB PO SCH (21:26)
[2022-03-06] MEDS: [UNRECOGNIZED DRUG - OTHER] PO SCH (21:27)
[2022-03-06] MEDS: MIRABEGRON 25 MG PO SCH (21:27)
[2022-03-06 22:00] VITALS: BP 115/57
[2022-03-07 06:00] VITALS: BP 128/63
[2022-03-07] MEDS: SODIUM CHLORIDE 0.9% INJ 10 ML SYR IV SCH ×2 (06:22→17:20)
[2022-03-07] MEDS: LEVOTHYROXINE 100MCG TABLET (0.1MG) PO SCH (06:22)
[2022-03-07 06:26] LABS: BASO % 0.3 % (0.0-1.0); EOS # 0.1 10^3/uL (0.0-0.5); HEMATOCRIT 29.2 % (36.0-47.0); HEMOGLOBIN 9.1 g/dl (12.0-15.5); LYMPH # 1.2 10^3/uL (1.5-5.0); LYMPH % 8.9 % (24.0-44.0); MEAN CORPUSCULAR HEMOGLOBIN 30.6 pg (27.0-33.0); MEAN CORPUSCULAR HGB CONC 31.2 g/dl (32.0-36.5); MEAN CORPUSCULAR VOLUME 98.3 fl (80.0-96.0); MONO % 7.9 % (2.0-8.0); NEUTROPHILS # 10.7 10^3/uL (1.5-8.5); NEUTROPHILS % 81.4 % (36.0-66.0); PLATELET COUNT, AUTOMATED 237 10^3/uL (150-450); RED BLOOD COUNT 2.97 10^6/uL (4.00-5.40); WHITE BLOOD COUNT 13.1 10^3/uL (4.0-10.0)
[2022-03-07] MEDS: PARoxetine 25MG CR TAB (PAXIL CR) PO SCH (08:49)
[2022-03-07] MEDS: CHLORHEXIDINE GLUCONATE 0.12 % 15ML UDC (PERIDEX ORAL RINSE) MT SCH ×4 (08:50→21:12)
[2022-03-07] MEDS: METOPROLOL TART 25 MG TABLET PO SCH (08:50)
[2022-03-07] MEDS: PANTOPRAZOLE 40MG TAB (PROTONIX) PO SCH (08:50)
[2022-03-07] MEDS: LACTOBACILLUS ACIDOPHILUS CAP (BACID) PO SCH ×2 (08:50→17:19)
[2022-03-07] MEDS: GABAPENTIN 300 MG CAP PO SCH ×2 (08:50→21:12)
[2022-03-07] MEDS: [UNRECOGNIZED DRUG - OTHER] PO SCH ×2 (08:51→21:12)
[2022-03-07] MEDS: TROSPIUM 60 MG PO SCH (08:51)
[2022-03-07] MEDS: HYDROCORTISONE 2.5% 20GM OINTMENT TOP SCH ×2 (08:51→21:12)
[2022-03-07 14:00] VITALS: BP 141/75
[2022-03-07] MEDS: QUEtiapine FUMARATE 25 MG TAB PO SCH (17:19)
[2022-03-07] MEDS: MIRABEGRON 25 MG PO SCH (21:11)
[2022-03-07] MEDS: SIMVASTATIN 20 MG TAB PO SCH (21:12)
[2022-03-07 22:00] VITALS: BP 130/80
[2022-03-08] MEDS: LEVOTHYROXINE 100MCG TABLET (0.1MG) PO SCH (05:41)
[2022-03-08] MEDS: SODIUM CHLORIDE 0.9% INJ 10 ML SYR IV SCH ×2 (05:42→17:12)
[2022-03-08] MEDS: SODIUM CHLORIDE 0.9% INJ 10 ML SYR IV PRN (05:43)
[2022-03-08 05:50] LABS: BASO % 0.4 % (0.0-1.0); EOS # 0.2 10^3/uL (0.0-0.5); EOS % 2.1 % (0.0-3.0); HEMATOCRIT 29.5 % (36.0-47.0); HEMOGLOBIN 9.2 g/dl (12.0-15.5); LYMPH # 0.9 10^3/uL (1.5-5.0); MEAN CORPUSCULAR HEMOGLOBIN 30.2 pg (27.0-33.0); MEAN CORPUSCULAR HGB CONC 31.2 g/dl (32.0-36.5); MEAN CORPUSCULAR VOLUME 96.7 fl (80.0-96.0); MONO # 0.6 10^3/uL (0.0-0.8); MONO % 7.2 % (2.0-8.0); NEUTROPHILS # 6.2 10^3/uL (1.5-8.5); NEUTROPHILS % 78.9 % (36.0-66.0); PLATELET COUNT, AUTOMATED 231 10^3/uL (150-450); RED BLOOD COUNT 3.05 10^6/uL (4.00-5.40); WHITE BLOOD COUNT 7.8 10^3/uL (4.0-10.0)
[2022-03-08 06:00] VITALS: BP 137/80
[2022-03-08] MEDS: TROSPIUM 60 MG PO SCH (09:01)
[2022-03-08] MEDS: GABAPENTIN 300 MG CAP PO SCH ×2 (09:02→22:18)
[2022-03-08] MEDS: LACTOBACILLUS ACIDOPHILUS CAP (BACID) PO SCH ×2 (09:02→17:12)
[2022-03-08] MEDS: METOPROLOL TART 25 MG TABLET PO SCH (09:02)
[2022-03-08] MEDS: [UNRECOGNIZED DRUG - OTHER] PO SCH ×2 (09:02→22:20)
[2022-03-08] MEDS: HYDROCORTISONE 2.5% 20GM OINTMENT TOP SCH ×2 (09:03→22:22)
[2022-03-08] MEDS: PANTOPRAZOLE 40MG TAB (PROTONIX) PO SCH (09:03)
[2022-03-08] MEDS: PARoxetine 25MG CR TAB (PAXIL CR) PO SCH (09:03)
[2022-03-08] MEDS: CHLORHEXIDINE GLUCONATE 0.12 % 15ML UDC (PERIDEX ORAL RINSE) MT SCH ×4 (09:03→22:18)
[2022-03-08] MEDS: QUEtiapine FUMARATE 25 MG TAB PO SCH (17:12)
[2022-03-08] MEDS: SIMVASTATIN 20 MG TAB PO SCH (21:00)
[2022-03-08] MEDS: MIRABEGRON 25 MG PO SCH (22:21)
[2022-03-09 01:55] VITALS: BP 136/80
[2022-03-09] MEDS: LEVOTHYROXINE 100MCG TABLET (0.1MG) PO SCH (05:45)
[2022-03-09] MEDS: SODIUM CHLORIDE 0.9% INJ 10 ML SYR IV SCH ×2 (05:45→18:15)
[2022-03-09] MEDS: SODIUM CHLORIDE 0.9% INJ 10 ML SYR IV PRN (05:46)
[2022-03-09] MEDS: [UNRECOGNIZED DRUG - OTHER] PO SCH ×2 (09:00→20:00)
[2022-03-09] MEDS: CHLORHEXIDINE GLUCONATE 0.12 % 15ML UDC (PERIDEX ORAL RINSE) MT SCH ×4 (09:10→19:59)
[2022-03-09] MEDS: PANTOPRAZOLE 40MG TAB (PROTONIX) PO SCH (09:10)
[2022-03-09] MEDS: PARoxetine 25MG CR TAB (PAXIL CR) PO SCH (09:10)
[2022-03-09] MEDS: GABAPENTIN 300 MG CAP PO SCH ×2 (09:11→19:59)
[2022-03-09] MEDS: LACTOBACILLUS ACIDOPHILUS CAP (BACID) PO SCH ×2 (09:11→18:15)
[2022-03-09] MEDS: METOPROLOL TART 25 MG TABLET PO SCH (09:13)
[2022-03-09] MEDS: TROSPIUM 60 MG PO SCH (09:13)
[2022-03-09] MEDS: HYDROCORTISONE 2.5% 20GM OINTMENT TOP SCH ×2 (09:14→20:00)
[2022-03-09] MEDS ORDERED: CEFD300C41 PO (10:20)
[2022-03-09] MEDS ORDERED: PROB1CAP10 PO (10:20)
[2022-03-09] MEDS: QUEtiapine FUMARATE 25 MG TAB PO SCH (14:49)
[2022-03-09] MEDS: SIMVASTATIN 20 MG TAB PO SCH (19:59)
[2022-03-09] MEDS: MIRABEGRON 25 MG PO SCH (19:59)
[2022-03-10] MEDS: LEVOTHYROXINE 100MCG TABLET (0.1MG) PO SCH (05:14)
[2022-03-10] MEDS: SODIUM CHLORIDE 0.9% INJ 10 ML SYR IV SCH (05:15)
[2022-03-10] MEDS: SODIUM CHLORIDE 0.9% INJ 10 ML SYR IV PRN (05:16)
[2022-03-10 06:38] VITALS: BP 139/82
[2022-03-10] MEDS: TROSPIUM 60 MG PO SCH (09:00)
[2022-03-10] MEDS: [UNRECOGNIZED DRUG - OTHER] PO SCH (09:00)
[2022-03-10 09:32] VITALS: BP 139/82
[2022-03-10] MEDS: PANTOPRAZOLE 40MG TAB (PROTONIX) PO SCH (09:32)
[2022-03-10] MEDS: CHLORHEXIDINE GLUCONATE 0.12 % 15ML UDC (PERIDEX ORAL RINSE) MT SCH (09:32)
[2022-03-10] MEDS: LACTOBACILLUS ACIDOPHILUS CAP (BACID) PO SCH (09:32)
[2022-03-10] MEDS: METOPROLOL TART 25 MG TABLET PO SCH (09:32)
[2022-03-10] MEDS: PARoxetine 25MG CR TAB (PAXIL CR) PO SCH (09:32)
[2022-03-10] MEDS: GABAPENTIN 300 MG CAP PO SCH (09:32)
[2022-03-10] MEDS: HYDROCORTISONE 2.5% 20GM OINTMENT TOP SCH (09:33)
== END 2022-03-10 12:00 | DRG 155 ==
LOC: M ED 06:42 → EDBD 06:42 → M ED INP 10:53 → ENRESERV 02-20 10:52 → M MS5PR 02-20 12:30
PROVIDERS: ADMIT Internal Medicine Nephrology; ATTEND Internal Medicine
PROC: 02HV33Z Insertion of Infusion Device into Superior Vena Cava, Percutaneous Approach (ICD-10-PCS; principal; 2022-02-23)
DX: K11.21 Acute sialoadenitis (principal); L03.211 Cellulitis of face; N17.9 Acute kidney failure, unspecified; I13.0 Hypertensive heart and chronic kidney disease with heart failure and stage 1 through stage 4 chronic kidney disease, or unspecified chronic kidney disease; I50.32 Chronic diastolic (congestive) heart failure; F03.918 Unspecified dementia, unspecified severity, with other behavioral disturbance; N39.0 Urinary tract infection, site not specified; N18.30 Chronic kidney disease, stage 3 unspecified; J44.9 Chronic obstructive pulmonary disease, unspecified; B95.61 Methicillin susceptible Staphylococcus aureus infection as the cause of diseases classified elsewhere; E78.5 Hyperlipidemia, unspecified; E03.9 Hypothyroidism, unspecified; Z91.040 Latex allergy status; Z79.899 Other long term (current) drug therapy; F41.9 Anxiety disorder, unspecified; F32.A Depression, unspecified; K57.30 Diverticulosis of large intestine without perforation or abscess without bleeding; Z96.651 Presence of right artificial knee joint; Z87.891 Personal history of nicotine dependence; Z98.41 Cataract extraction status, right eye; Z98.42 Cataract extraction status, left eye; R19.7 Diarrhea, unspecified; E73.9 Lactose intolerance, unspecified

== ENCOUNTER → 2022-06-17 | Outpatient (REF) | payer MEDICARE, OTHER ==
[~2022-06-17] MED LIST changes: +ACID1TAB5 PO; +CEFD300C41 PO; +DICL1GEL3 TOP; +LEVO100T5 PO; +METO25TA4 PO; +PARO37.55 PO; +PROB1CAP10 PO
== END ==
LOC: SKLAB8 11:27
PROVIDERS: ATTEND Internal Medicine
DX: S42.211D Unspecified displaced fracture of surgical neck of right humerus, subsequent encounter for fracture with routine healing (principal)

== ENCOUNTER → 2022-06-18 | Outpatient (REF) | payer MEDICARE, OTHER | LOC: SKLAB8 09:06 | PROVIDERS: ATTEND Internal Medicine | DX: M25.519 Pain in unspecified shoulder (principal); Z53.8 Procedure and treatment not carried out for other reasons ==

== ENCOUNTER → 2022-07-20 | Outpatient (REF) | payer MEDICARE, OTHER ==
[2022-07-20 09:56] LABS: HEMATOCRIT 38.9 % (36.0-47.0); HEMOGLOBIN 12.1 g/dl (12.0-15.5); MEAN CORPUSCULAR HEMOGLOBIN 28.3 pg (27.0-33.0); MEAN CORPUSCULAR HGB CONC 31.1 g/dl (32.0-36.5); MEAN CORPUSCULAR VOLUME 91.1 fl (80.0-96.0); PLATELET COUNT, AUTOMATED 253 10^3/uL (150-450); RED BLOOD COUNT 4.27 10^6/uL (4.00-5.40); WHITE BLOOD COUNT 6.5 10^3/uL (4.0-10.0)
[2022-07-20 10:22] LABS: ALBUMIN 3.3 G/DL (3.2-5.2); BILIRUBIN,TOTAL 0.3 MG/DL (0.3-1.2); CALCIUM LEVEL 9.7 MG/DL (8.3-10.6); CREATININE FOR GFR 1.61 MG/DL (0.55-1.30); GLOMERULAR FILTRATION RATE 32.8 (>32); POTASSIUM SERUM 4.6 MMOL/L (3.5-5.1); TOTAL PROTEIN 6.3 G/DL (5.7-8.2)
== END ==
LOC: SKLAB8 06:23
PROVIDERS: ATTEND Internal Medicine
DX: U07.1 COVID-19 (principal); Z79.899 Other long term (current) drug therapy

== ENCOUNTER → 2022-07-29 | Outpatient (REF) | payer MEDICARE, OTHER ==
[2022-07-29 09:48] LABS: HEMATOCRIT 36.2 % (36.0-47.0); HEMOGLOBIN 11.7 g/dl (12.0-15.5); MEAN CORPUSCULAR HEMOGLOBIN 29.2 pg (27.0-33.0); MEAN CORPUSCULAR HGB CONC 32.3 g/dl (32.0-36.5); MEAN CORPUSCULAR VOLUME 90.3 fl (80.0-96.0); PLATELET COUNT, AUTOMATED 234 10^3/uL (150-450); RED BLOOD COUNT 4.01 10^6/uL (4.00-5.40); WHITE BLOOD COUNT 4.2 10^3/uL (4.0-10.0)
[2022-07-29 10:21] LABS: ALBUMIN 3.3 G/DL (3.2-5.2); BILIRUBIN,TOTAL 0.3 MG/DL (0.3-1.2); CALCIUM LEVEL 8.6 MG/DL (8.3-10.6); CREATININE FOR GFR 1.64 MG/DL (0.55-1.30); GLOMERULAR FILTRATION RATE 32.1 (>32); POTASSIUM SERUM 4.6 MMOL/L (3.5-5.1); TOTAL PROTEIN 6.2 G/DL (5.7-8.2)
== END ==
LOC: SKLAB8 07:00
PROVIDERS: ATTEND Internal Medicine
DX: U07.1 COVID-19 (principal); Z79.899 Other long term (current) drug therapy

== ENCOUNTER → 2022-08-23 | Outpatient (CLI) | payer MEDICARE, OTHER | LOC: M SOG 09:52 | PROVIDERS: ATTEND Physician Assistant | DX: S42.251A Displaced fracture of greater tuberosity of right humerus, initial encounter for closed fracture (principal); X58.XXXA Exposure to other specified factors, initial encounter; Y92.9 Unspecified place or not applicable; Y93.9 Activity, unspecified; Y99.9 Unspecified external cause status; M19.011 Primary osteoarthritis, right shoulder; Z87.81 Personal history of (healed) traumatic fracture; M75.91 Shoulder lesion, unspecified, right shoulder ==

== ENCOUNTER → 2022-12-06 | Outpatient (REF) | payer MEDICARE, OTHER ==
[~2022-12-06] MED LIST changes: -CEFD300C41 PO; +CEFD300C42 PO; +DICL100G10 TOP; -DICL1GEL3 TOP; -ESTR1MIS PV; +ESTR1VAG3 PV
[2022-12-06 15:26] LABS: PHOSPHORUS LEVEL 4.1 MG/DL (2.4-5.1)
[2022-12-06 15:27] LABS: PTH INTACT 299.8 PG/ML (18.5-88.0)
[2022-12-06 15:28] LABS: TOTAL 25(OH) VITAMIN D 29.1 NG/ML (20.0-100.0)
== END ==
LOC: SKLAB8 07:00
PROVIDERS: ATTEND Internal Medicine
DX: N18.9 Chronic kidney disease, unspecified (principal); Z79.899 Other long term (current) drug therapy

== ENCOUNTER → 2022-12-24 | Outpatient (REF) | payer MEDICARE, OTHER ==
[2022-12-24 15:49] LABS: BASO # 0.1 10^3/uL (0.0-0.2); BASO % 0.9 % (0.0-1.0); EOS # 0.2 10^3/uL (0.0-0.5); EOS % 3.7 % (0.0-3.0); HEMATOCRIT 34.9 % (36.0-47.0); HEMOGLOBIN 11.6 g/dl (12.0-15.5); LYMPH # 1.2 10^3/uL (1.5-5.0); LYMPH % 20.6 % (24.0-44.0); MEAN CORPUSCULAR HEMOGLOBIN 30.9 pg (27.0-33.0); MEAN CORPUSCULAR HGB CONC 33.2 g/dl (32.0-36.5); MEAN CORPUSCULAR VOLUME 92.8 fl (80.0-96.0); MONO # 0.8 10^3/uL (0.0-0.8); MONO % 13.1 % (2.0-8.0); NEUTROPHILS # 3.5 10^3/uL (1.5-8.5); PLATELET COUNT, AUTOMATED 248 10^3/uL (150-450); RED BLOOD COUNT 3.76 10^6/uL (4.00-5.40); WHITE BLOOD COUNT 5.7 10^3/uL (4.0-10.0)
[2022-12-28 08:42] LABS: PTH INTACT 231.6 PG/ML (18.5-88.0)
[2022-12-28 14:06] LABS: ALBUMIN 3.8 G/DL (3.9-4.9); CALCIUM LEVEL 9.6 MG/DL (8.7-10.3); CREATININE FOR GFR 1.66 MG/DL (0.57-1.00); GLOMERULAR FILTRATION RATE 31.6 (>59); MAGNESIUM LEVEL 1.7 MG/DL (1.6-2.3); PHOSPHORUS LEVEL 4.1 MG/DL (3.0-4.3); POTASSIUM SERUM 4.7 mmol/L (3.5-5.2)
== END ==
LOC: SKLAB8 15:02
PROVIDERS: ATTEND Internal Medicine
DX: N18.9 Chronic kidney disease, unspecified (principal)

== ENCOUNTER → 2023-01-17 | Outpatient (CLI) | payer MEDICARE, OTHER | LOC: M RAD 09:01 | PROVIDERS: ATTEND Internal Medicine | DX: M79.632 Pain in left forearm (principal) ==

== ENCOUNTER → 2023-01-17 | Outpatient (REF) | payer MEDICARE, OTHER | LOC: SKLAB8 07:54 | PROVIDERS: ATTEND Internal Medicine | DX: M79.89 Other specified soft tissue disorders (principal); M25.552 Pain in left hip; W19.XXXA Unspecified fall, initial encounter; Y92.129 Unspecified place in nursing home as the place of occurrence of the external cause; Y93.9 Activity, unspecified ==

== ENCOUNTER → 2023-04-21 | Outpatient (REF) | payer MEDICARE, OTHER ==
[~2023-04-21] MED LIST changes: +CEFD1CAP9 PO; -CEFD300C42 PO
[2023-04-21 09:09] LABS: BASO # 0.1 10^3/uL (0.0-0.2); BASO % 0.8 % (0.0-1.0); EOS # 0.3 10^3/uL (0.0-0.5); EOS % 4.2 % (0.0-3.0); HEMATOCRIT 33.7 % (36.0-47.0); HEMOGLOBIN 11.2 g/dl (12.0-15.5); LYMPH # 1.4 10^3/uL (1.5-5.0); LYMPH % 23.3 % (24.0-44.0); MEAN CORPUSCULAR HEMOGLOBIN 30.9 pg (27.0-33.0); MEAN CORPUSCULAR HGB CONC 33.2 g/dl (32.0-36.5); MEAN CORPUSCULAR VOLUME 92.8 fl (80.0-96.0); MONO # 0.6 10^3/uL (0.0-0.8); MONO % 10.3 % (2.0-8.0); NEUTROPHILS # 3.8 10^3/uL (1.5-8.5); NEUTROPHILS % 61.1 % (36.0-66.0); PLATELET COUNT, AUTOMATED 238 10^3/uL (150-450); RED BLOOD COUNT 3.63 10^6/uL (4.00-5.40); WHITE BLOOD COUNT 6.2 10^3/uL (4.0-10.0)
[2023-04-21 09:42] LABS: CALCIUM LEVEL 9.6 MG/DL (8.3-10.6); CREATININE FOR GFR 1.5 MG/DL (0.55-1.30); GLOMERULAR FILTRATION RATE 35.5 (>32); MAGNESIUM LEVEL 1.4 MG/DL (1.8-2.4); PHOSPHORUS LEVEL 3.3 MG/DL (2.4-5.1); POTASSIUM SERUM 4.6 MMOL/L (3.5-5.1); PTH INTACT 86.7 PG/ML (18.5-88.0)
== END ==
LOC: SKLAB8 07:00
PROVIDERS: ATTEND Internal Medicine
DX: N18.9 Chronic kidney disease, unspecified (principal)

== ENCOUNTER → 2023-04-26 | Outpatient (REF) | payer MEDICARE, OTHER | LOC: SKLAB8 11:09 | PROVIDERS: ATTEND Internal Medicine | DX: Z79.899 Other long term (current) drug therapy (principal) ==

== ENCOUNTER → 2023-05-02 | Outpatient (REF) | payer MEDICARE, OTHER ==
[2023-05-02 16:37] LABS: CREATININE, URINE 71.6 MG/DL; MAU/CREAT RATIO 104.7 MCG/MG (0.0-30.0)
== END ==
LOC: SKLAB8 15:34
PROVIDERS: ATTEND Internal Medicine
DX: I50.9 Heart failure, unspecified (principal); N18.9 Chronic kidney disease, unspecified; I73.9 Peripheral vascular disease, unspecified

== ENCOUNTER → 2023-06-22 | Outpatient (REF) | payer MEDICARE, OTHER | LOC: SKLAB8 14:03 | PROVIDERS: ATTEND Internal Medicine | DX: Z53.8 Procedure and treatment not carried out for other reasons (principal) ==

== ENCOUNTER → 2023-06-22 | Outpatient (CLI) | payer MEDICARE, OTHER | LOC: M RAD 15:08 | PROVIDERS: ATTEND Internal Medicine | DX: M19.041 Primary osteoarthritis, right hand (principal) ==

== ENCOUNTER → 2024-05-21 | Outpatient (REF) | payer MEDICARE, OTHER ==
[~2024-05-21] MED LIST changes: -ADV250INH; -ADV250INH INH; +ADVA1AER9; +ADVA1AER9 INH; -ALIG4CAP PO; +ALIG4CAP3 PO; -CYCL5TAB PO; +CYCL5TAB4 PO; +ESOM1CAP20 PO; -ESOM1CAP5 PO; +GABA-1172 PO; +GABA-1490; +GABA-1490 PO; -GABA-282 PO; -GABA600T4; -GABA600T4 PO
[2024-05-21 15:33] LABS: APPEARANCE, URINE TURBID (CLEAR); BACTERIA, URINE AUTO 2+ (NEGATIVE); BILIRUBIN, URINE AUTO NEGATIVE (NEGATIVE); BLOOD, URINE BLOOD 1+ (NEGATIVE); GLUCOSE, URINE (UA) AUTO NEGATIVE (NEGATIVE); KETONE, URINE AUTO NEGATIVE (NEGATIVE); LEUKOCYTE ESTERASE, URINE AUTO 2+ (NEGATIVE); NITRITE, URINE AUTO POSITIVE (NEGATIVE); PROTEIN, URINE AUTO 2+ mg/dL (NEGATIVE); RBC, URINE AUTO 15 /HPF (0-3); SPECIFIC GRAVITY URINE AUTO 1.012 (1.002-1.035); SQUAMOUS EPITHELIAL CELL UR AU 10 /HPF (0-6); UROBILINOGEN, URINE AUTO 0.2 mg/dL (0.0-2.0); WBC, URINE AUTO TNTC /HPF (0-3)
[2024-05-21 15:34] LABS: COLOR, URINE BLUE (YELLOW)
== END ==
LOC: M LAB REF 15:14
PROVIDERS: ATTEND Family Medicine
DX: N32.81 Overactive bladder (principal); N39.0 Urinary tract infection, site not specified; G30.9 Alzheimer's disease, unspecified